=== PATIENT | female | born 1960 | race Caucasian/White ===

== ENCOUNTER 2016-11-27 09:03 | Inpatient (IN) | payer BC ==
[2016-11-27] MEDS ORDERED: Ondansetron INJ* 2 MG/ML VIAL IV ONE (09:57)
[2016-11-27] MEDS ORDERED: Ketorolac INJ* 30 MG/ML 1 ML VIAL IV ONE (09:57)
[2016-11-27] MEDS ORDERED: Morphine INJ* 4 MG/ML 1 ML CARPUJECT IV ONE ×2 (09:57→15:38)
[2016-11-27 10:11] LABS: Hematocrit 46 % (35-47); Hemoglobin 15.3 g/dl (12.0-16.0); Mean Corpuscular HGB Conc 33 g/dl (31-36); Mean Corpuscular Hemoglobin 30 pg (27-31); Mean Corpuscular Volume 90 fL (80-97); Mean Platelet Volume 11 um3 (7.4-10.4); Red Blood Count 5.16 10^6/ul (4.0-5.4); Red Cell Distribution Width 14 % (10.5-15); White Blood Count 15.2 10^3/ul (3.5-10.8)
[2016-11-27 10:14] LABS: Urine Bilirubin Negative (Negative); Urine Glucose Negative (Negative); Urine Nitrite Negative (Negative)
[2016-11-27] MEDS: NS 0.9% 1000 ML* 2,000 ML IV ONE ×3 (10:14→15:47)
[2016-11-27 10:26] LABS: Albumin 3.9 g/dL (3.2-5.2); BUN/Creatinine Ratio 14.1 (8-20); C Reactive Protein 84.89 mg/L (< 5.00); Calcium 9.3 mg/dL (8.6-10.3); EGFR Non-African American 69.2 (>60); Globulin 3.3 g/dL (2-4); Potassium 3.6 mmol/L (3.5-5.0); Total Bilirubin 0.6 mg/dL (0.2-1.0); Total Protein 7.2 g/dL (6.4-8.9)
[2016-11-27 10:28] LABS: Troponin I 0.01 ng/mL (<0.04)
--- NOTE | 2016-11-27 10:44 | RAD ---
CLINICAL HISTORY: Right flank pain COMPARISON: October 25, 2013 TECHNIQUE: Multiple contiguous axial CT scans were obtained of the abdomen and pelvis, without intravenous contrast enhancement. Coronal and sagittal multiplanar reformations are submitted for review. Oral contrast was not administered. FINDINGS: This The study is limited by the lack of intravenous contrast. This limits evaluation of the solid organs and vasculature. LUNG BASES: The lung bases are clear. LIVER: There is a Mary's lobe of the liver. BILE DUCTS: There is no intrahepatic or extrahepatic biliary dilatation. GALLBLADDER: The gallbladder is not clearly visualized. PANCREAS: The patient appears to be status post partial pancreatectomy. SPLEEN: The spleen is not identified. There is a small amount of residual splenic tissue in the left upper quadrant, stable UPPER GI TRACT: Evaluation of the gastrointestinal tract is limited by incomplete gastric distention. The upper GI tract is unremarkable. SMALL BOWEL AND MESENTERY: The small bowel is normal in contour, course, and caliber. There is no obstruction or dilatation. COLON: The colon is normal in contour, course, caliber. There is no pericolonic inflammatory change. There is a tubular, vermiform, hollow viscus that is blind ending, and originates from the cecum, consistent with a normal appendix. There is no periappendiceal inflammatory change. This is best seen on images 105 through 111 ADRENALS: There is stable right adrenal nodule KIDNEYS: The kidneys are normal in shape, size, contour, and axis. There is no hydronephrosis or nephrolithiasis. BLADDER: The bladder is smooth in contour. PELVIC ORGANS: The pelvic organs are not visualized. AORTA: There is calcific atherosclerotic disease of the abdominal aorta and its branches, without aneurysmal dilatation IVC: Unremarkable LYMPH NODES: There is no lymphadenopathy by size criteria. ABDOMINAL WALL: There is no evidence for abdominal wall hernia. BONES AND SOFT TISSUES: Unremarkable OTHER: None IMPRESSION: 1. STATUS POST PARTIAL PANCREECTOMY AND SPLENECTOMY. 2. NO HYDRONEPHROSIS OR NEPHROLITHIASIS. 3. STABLE RIGHT ADRENAL NODULE
[2016-11-27] MEDS ORDERED: Albuterol/Ipratropium NEB.SOL* Albuterol 2.5 MG/Ipratropium 0.5 MG 3 ML INH ONE (15:55)
[2016-11-27] MEDS ORDERED: methylPREDNISolone 125 MG* 2 ML VIAL IV ONE (15:55)
--- NOTE | 2016-11-27 17:05 | RAD ---
Indication: Right lower quadrant pain. COMPARISON: Correlation is made with a prior CT of the abdomen and pelvis from November 27, 2016. TECHNIQUE: Multiple real-time transvaginal images of the pelvis were obtained. FINDINGS: The patient is status post hysterectomy. The right ovary measured 2.5 x 1.6 x 1.7 cm. The left ovary measured 2.3 x 1.1 x 1.4 cm. There is vascular flow within both ovaries. There are small bilateral subcentimeter follicular cysts present. No free intraperitoneal fluid is seen. IMPRESSION: STATUS POST HYSTERECTOMY, OTHERWISE UNREMARKABLE STUDY.
[2016-11-27] MEDS ORDERED: Iohexol 350* (CONTRAST) 500 ML MDV IV ONE (17:27)
--- NOTE | 2016-11-27 18:48 | RAD ---
INDICATION: Hypoxia, right flank and right lower quadrant pain. COMPARISON: Comparison is made with prior CTs of the abdomen and pelvis from October 25, 2013 and November 27, 2016. TECHNIQUE: A CT angiogram of the chest and a CT of the abdomen and pelvis was performed with intravenous contrast following intravenous injection of 81 ml of Omnipaque 350 nonionic contrast. Contiguous axial sections were obtained from the lung apices through the symphysis pubis. Images were reconstructed in the coronal and sagittal planes. FINDINGS: CT ANGIOGRAM OF THE CHEST: There is relatively homogeneous opacification of the pulmonary arteries. No intraluminal filling defect or pulmonary embolism is seen. The heart is within normal limits in size. No pericardial effusion is present. The thoracic aorta is normal in caliber and demonstrates homogeneous contrast opacification without evidence for dissection. There are multiple enlarged mediastinal lymph nodes present in the precarinal subcarinal and aorticopulmonary window regions measuring up to 2.0 cm in transverse dimension in the subcarinal region. There are also enlarged bilateral hilar lymph nodes measuring up to 1.7 cm in size. There are patchy infiltrates present in both upper lobes suspicious for pneumonia. In addition there are few scattered small bilateral pulmonary nodules. The largest nodule is located in the right upper lobe and measures 0.6 cm in size. There is also a small infiltrate in the right lower lobe suggestive of atelectasis. No pleural effusion is seen. CT OF THE ABDOMEN AND PELVIS: The liver is mildly enlarged and unchanged from prior studies. There is mild intra and extra hepatic ductal distention. The common bile duct measures up to 0.9 cm in diameter and appears similar to the prior study from study from 2012. The patient is status post cholecystectomy and resection of the pancreatic body and tail. There is fullness in the pancreatic head which is also unchanged from the prior exam. The patient is also status post splenectomy. There is a splenule present in the left upper quadrant which is unchanged. There is a 2.1 x 1.1 cm nodule within the right adrenal gland which is unchanged. The left adrenal gland appears to be within normal limits. No hydronephrosis is seen. There is a 2 cm cyst present in the midportion of the left kidney. The abdominal aorta is normal in caliber. There is moderate calcific plaque present. No significant enlarged retroperitoneal or mesenteric lymph nodes are seen. The stomach is mildly distended with contrast. The small bowel and colon appear nondistended. The appendix is not visualized. No inflammatory changes are seen in the right lower quadrant. There is no evidence for diverticulitis or colitis. There is mild thickening of the wall of the esophagus. The patient is status post hysterectomy. No free intraperitoneal air or fluid is seen. No significant focal osseous abnormality is seen. IMPRESSION: 1. NO EVIDENCE FOR PULMONARY EMBOLISM. 2. PATCHY BILATERAL UPPER LOBE INFILTRATES SUSPICIOUS FOR PNEUMONIA. 3. SMALL BILATERAL PULMONARY NODULES DIFFERENTIAL DIAGNOSIS WOULD INCLUDE METASTATIC DISEASE, INFLAMMATORY OR INFECTIOUS NODULES OR GRANULOMATOUS DISEASE. 4. ENLARGED MEDIASTINAL OR HILAR LYMPH NODES CONSIDER A NEOPLASTIC PROCESS WELL SARCOIDOSIS. 5. STABLE RIGHT ADRENAL NODULE. 6. STATUS POST PARTIAL PANCREATECTOMY AND SPLENECTOMY. 7. MILD INTRA AND EXTRAHEPATIC DUCTAL DISTENTION, UNCHANGED SIGNIFICANTLY. 8. MILD THICKENING OF THE WALL OF THE ESOPHAGUS LIKELY INFLAMMATORY ALTHOUGH NONSPECIFIC CONSIDER ENDOSCOPY.
[2016-11-27] MEDS ORDERED: Levofloxacin 750 MG IVPREMIX(* 750 MG/150 ML BAG IVPB ONE (19:24)
[2016-11-27] MEDS ORDERED: Acetaminophen TAB* 325 MG PO PRN (20:19)
[2016-11-27] MEDS ORDERED: cefTRIAXone(*) 1 GM in NS 0.9% 50 ML* 50 ML IVPB ONE (20:27)
[2016-11-27] MEDS ORDERED: Albuterol/Ipratropium NEB.SOL* Albuterol 2.5 MG/Ipratropium 0.5 MG 3 ML INH PRN (20:27)
[2016-11-27] MEDS ORDERED: Morphine INJ* 2 MG/ML 1 ML CARPUJECT IV PRN (20:27)
[2016-11-27] MEDS ORDERED: Albuterol HFA INHALER* 8 gm MDI INH PRN (20:30)
[2016-11-27] MEDS: Heparin VIAL(*) 5000 UNITS/ML VIAL (FIVE THOUSAND) SUBCUT SCH (22:49)
[2016-11-27] MEDS: Azithromycin IV(*) 500 MG in NS 0.9% 250 ML* 250 ML IVPB SCH (22:51)
[2016-11-27] MEDS: Mometasone/Formoter 100/5 MDI INH SCH (22:59)
[2016-11-28] MEDS: methylPREDNISolone SOD 40 MG* 1 ML VIAL IV SCH ×3 (00:38→17:27)
[2016-11-28] MEDS: Benzonatate CAP* 100 MG PO PRN ×2 (02:51→10:37)
[2016-11-28] MEDS: Heparin VIAL(*) 5000 UNITS/ML VIAL (FIVE THOUSAND) SUBCUT SCH ×3 (05:40→21:47)
[2016-11-28] MEDS: Mometasone/Formoter 100/5 MDI INH SCH ×2 (07:37→23:26)
[2016-11-28] MEDS: Tiotropium CAP.INH* CAP.INH/18 MCG (USE ORDER SET !) INH SCH (07:38)
--- NOTE | 2016-11-28 08:37 | HP ---
HISTORY AND PHYSICAL: DATE OF ADMISSION: 11/27/16 PRIMARY CARE PHYSICIAN: Dr. Stevenson Carmichael. CHIEF COMPLAINT: Shortness of breath. HISTORY OF PRESENT ILLNESS: The patient is a 56-year-old woman who was initially diagnosed with bronchitis after going to [facility] the other day and placed on Augmentin and an inhaler. She said, however, later that evening she started developing pain in her back. It was on the right side and radiated to the front. She thought she had a stone, so she came to the ER. She received morphine which helped the pain. She denied any blood in her urine. With shortness of breath, she also experienced chest tightness and a cough that was productive of yellow phlegm. She had fevers and chills. She does not know if there was any increased wheezing. In the ED, the patient was evaluated and thought to have a likely pneumonia. PAST MEDICAL HISTORY: Significant for pancreatic cancer diagnosed in 2004, COPD , hypertension. PAST SURGICAL HISTORY: Significant for partial pancreatotomy for cancer, splenectomy, cholecystectomy, hysterectomy. MEDICATIONS: Her current medications at home are: 1. Spiriva one inhalation daily. 2. Lisinopril 20 mg daily. 3. Hydrochlorothiazide 12.5 mg daily. 4. Advair Diskus 150 one puff twice daily. 5. Amlodipine one capsule daily. 6. Albuterol inhaler one to two puffs every 4 hours as needed. ALLERGIES: She has an allergy/adverse reaction to BUPROPION and OXYCODONE. FAMILY HISTORY: Father had non-insulin dependent diabetes and heart problems. Mother had osteoarthritis. Brother had thyroid problems. SOCIAL HISTORY: She has a [id number] history of smoking, quit for 10 days but is smoking again. Occasional alcohol and recreational drug use. She works for the [employer]. Her is her healthcare proxy. REVIEW OF SYSTEMS: A 14-point review of systems was completed with the patient. All pertinent positives and negatives are in the history of present illness; otherwise is negative. PHYSICAL EXAMINATION GENERAL: Pleasant woman, lying in bed, in no acute distress. VITAL SIGNS: Temperature 97.7 degrees, heart rate 91 beats per minute, respiratory rate 20 breaths per minute, pulse ox 92%, blood pressure 151/80. HEENT: Normocephalic, atraumatic. Pupils are equal, round, and reactive to light. Moist mucous membranes. NECK: Supple. No JVD, bruits, palpable thyroid, or lymphadenopathy. CHEST: Clear to auscultation and percussion bilaterally. CARDIOVASCULAR: S1, S2 appreciated. Regular rate and rhythm. No murmurs, gallops, or rubs. ABDOMEN: Positive bowel sounds in all 4 quadrants. Soft, nontender, nondistended. No hepatosplenomegaly. EXTREMITIES: No cyanosis, clubbing, or edema. +2 peripheral pulses bilaterally. NEUROLOGIC: Alert and oriented x3. Moves all extremities. SKIN: No distinct rashes or abnormalities. DIAGNOSTIC STUDIES/LAB DATA: White count 15.2, hemoglobin 15.3, hematocrit 46 , platelets 248. Sodium 134, potassium 3.6, chloride 102, CO2 27, BUN 12, creatinine 0.85, glucose 121. Urinalysis unremarkable. EKG showed normal sinus rhythm, 89 beats per minute, normal axis, no acute ST-T wave changes. Abdominal/pelvic CT shows status post partial pancreatectomy and splenectomy. No hydronephrosis or nephrolithiasis, status post stable right adrenal nodule. Transvaginal ultrasound shows status post hysterectomy, otherwise unremarkable study. CTA of the chest, abdomen and pelvis shows no evidence of pulmonary embolism. Patchy bilateral upper lobe infiltrates pneumonia and small bilateral pulmonary nodule. Differential diagnosis would include metastatic disease, inflammatory infectious nodules with granulomatous disease. Large B-cell hilar lymph nodes neoplastic process as well as sarcoidosis. Stable right adrenal nodule. Status post partial pancreatectomy, splenectomy, mild intrahepatic ductal distention, unchanged significantly. Mild thickening of the wall of the esophagus, likely inflammatory, although nonspecific, consider endoscopy. ASSESSMENT AND PLAN: 1. Bilateral pneumonia. Placed the patient on Rocephin and Zithromax. Check sputum for C and S, urine for Legionella pneumococcal antigen. Tessalon Perles for cough. 2. Chronic obstructive pulmonary disease exacerbation. Solu-Medrol 40 IV q. 8. DuoNeb nebulizers. 3. Hypertension. BP is somewhat high. Continue current regimen and adjust medications accordingly. 4. Fluids, electrolytes, nutrition. Regular diet. 5. Deep venous thrombosis prophylaxis. Heparin subcu. 6. The patient is a full code. TIME SPENT: Over 75 minutes were spent on this H and P, more than 40 minutes of which were spent in direct [id number] contact with the patient in evaluation, physical exam, counseling, and coordination of care. CC: Dr. Stevenson Carmichael* [id number]/[facility] #: [id number] [facility] HOSPITALSissy
[2016-11-28] MEDS ORDERED: Nicotine GUM* 2 MG PO PRN (08:53)
[2016-11-28] MEDS ORDERED: Nicotine Inhaler* 10 MG AMP INH PRN (08:53)
[2016-11-28] MEDS ORDERED: Pneumococcal *Vac Polyvalent 0.5 ML VIAL IM ONE (09:00)
[2016-11-28] MEDS ORDERED: AMLODIPINE BESYLATE BENAZEPRIL PO SCH (09:00)
[2016-11-28] MEDS ORDERED: Spiriva Inhaler DEVICE* 1 EACH DEVICE INH ONE (09:00)
[2016-11-28] MEDS ORDERED: Influenza VAC *QUAD* 2016-17* 0.5 ML SYRINGE IM ONE (09:00)
[2016-11-28] MEDS ORDERED: NICOTINE 21 MG/24 HR TRANSDERM SCH (09:00)
[2016-11-28] MEDS: Hydrochlorothiazide TAB* 25 MG PO SCH (09:09)
[2016-11-28] MEDS: Lisinopril TAB* 10 MG PO SCH (09:09)
[2016-11-28] MEDS: Nicotine PATCH 21 MG/24 HR* PATCH TRANSDERM SCH (09:12)
--- NOTE | 2016-11-28 09:42 | ED ---
Lexx Guadarrama Anna, scribed for Luis Scruggs MD on 11/27/16 at 0951 . Back Pain - HPI Summary HPI Summary: Patient is a 56 y/o female coming to [facility] presenting with gradual onset of right-sided flank pain that began last night. The pain waxes and wanes, peaking at a severity of 9/10. The pain radiates to the front RLQ. She was seen at [facility] yesterday and prescribed Abx for her bronchitis. Hx significant for cholecystectomy. - History of Current Complaint Chief Complaint: EDFlankPain Stated Complaint: RIGHT SIDE FLANK PAIN Time Seen by Provider: 11/27/16 09:39 Hx Obtained From: Patient Pain Intensity: 9 - Allergies/Home Medications Allergies/Adverse Reactions: Allergies Allergy/AdvReac Type Severity Reaction Status Date / Time Bupropion [From Wellbutrin] Allergy Intermediate Hives Verified 11/27/16 09:20 Oxycodone [From Percocet] Allergy Intermediate Swelling Verified 11/27/16 09:20 Of Face,Lips,& Throat Home Medications: Home Medications Albuterol HFA INHALER* [Ventolin HFA Inhaler*] 1 - 2 puff INH Q4H PRN 11/27/16 [ History Confirmed 11/27/16] Fluticasone-Salmeterol 100-50* [Advair Diskus 100-50*] 1 puff INH BID 11/27/16 [ History Confirmed 11/27/16] Hydrochlorothiazide [Microzide-] 12.5 mg PO DAILY 11/27/16 [History Confirmed ] Lisinopril [Prinivil TAB 20 mg] 20 mg PO DAILY 11/27/16 [History Confirmed 11/27] Tiotropium CAP.INH* [Spiriva CAP.INH*] 1 cap.inh INH DAILY 11/27/16 [History Confirmed 11/27/16] PMH/Surg Hx/FS Hx/Imm Hx Previously Healthy: Yes Cardiovascular History: Reports: Hx Hypertension Respiratory History: Reports: Hx Chronic Obstructive Pulmonary Disease (COPD) GI History: Reports: Other GI Disorders - pancreatic ca Psychiatric History: Reports: Hx Anxiety, Hx Depression - Cancer History Cancer Type, Location and Year: pancreatic ca 2005 - Surgical History Surgery Procedure, Year, and Place: partial pancreatectomy; partial hysterectomy ; spleenectomy; cholecystectomy Infectious Disease History: No Infectious Disease History: Denies: Hx Clostridium Difficile, Hx Hepatitis, Hx Human Immunodeficiency Virus (HIV), Traveled Outside the [place] in Last 30 Days - Family History Known Family History: Positive: Hypertension - Social History Alcohol Use: Rare Substance Use Type: Reports: None Smoking Status (MU): Former Smoker Review of Systems Negative: Fever Positive: Abdominal Pain - Right flank, radiating to RLQ All Other Systems Reviewed And Are Negative: Yes Physical Exam Triage Information Reviewed: Yes Vital Signs On Initial Exam: Initial Vitals Temp Pulse Resp BP Pulse Ox 98.6 F 107 18 133/79 89 11/27/16 09:13 11/27/16 09:13 11/27/16 09:13 11/27/16 09:13 11/27/16 09:13 Vital Signs Reviewed: Yes Appearance: Positive: Well-Appearing, No Pain Distress Skin: Positive: Warm, Skin Color Reflects Adequate Perfusion, Dry Head/Face: Positive: Normal Head/Face Inspection Eyes: Positive: EOMI, SHAYNE ENT: Positive: Normal ENT inspection Neck: Positive: Supple, Nontender Respiratory/Lung Sounds: Positive: Clear to Auscultation, Breath Sounds Present Cardiovascular: Positive: RRR Abdomen Description: Positive: Soft, CVA Tenderness (R) Bowel Sounds: Positive: Present Musculoskeletal: Positive: Normal, Strength/ROM Intact Neurological: Positive: Normal, Sensory/Motor Intact, Alert, Oriented to Person Place, Time Psychiatric: Positive: Affect/Mood Appropriate Diagnostics - Vital Signs Vital Signs Temp Pulse Resp BP Pulse Ox 11/27/16 09:36 95 11/27/16 09:34 111 88 11/27/16 09:13 98.6 F 107 18 133/79 89 - Laboratory Lab Results: Lab Results 11/27/16 11/27/16 11/27/16 Range/Units 09:30 10:00 10:00 WBC 15.2 H (3.5-10.8) 10^3/ul RBC 5.16 (4.0-5.4) 10^6/ul Hgb 15.3 (12.0-16.0) g/dl Hct 46 (35-47) % MCV 90 (80-97) fL MCH 30 (27-31) pg MCHC 33 (31-36) g/dl RDW 14 (10.5-15) % Plt Count 248 (150-450) 10^3/ul MPV 11 H (7.4-10.4) um3 Neut % (Auto) 74.5 (38-83) % Lymph % (Auto) 14.6 L (25-47) % [place] % (Auto) 9.0 (1-9) % Eos % (Auto) 1.4 (0-6) % Baso % (Auto) 0.5 (0-2) % Absolute Neuts (auto) 11.3 H (1.5-7.7) 10^3/ul Absolute Lymphs (auto) 2.2 (1.0-4.8) 10^3/ul Absolute Monos (auto) 1.4 H (0-0.8) 10^3/ul Absolute Eos (auto) 0.2 (0-0.6) 10^3/ul Absolute Basos (auto) 0.1 (0-0.2) 10^3/ul Absolute Nucleated RBC 0.01 10^3/ul Nucleated RBC % 0 INR (Anticoag Therapy) 0.94 (0.89-1.11) APTT 30.1 (26.0-36.3) seconds Sodium (133-145) mmol/L Potassium (3.5-5.0) mmol/L Chloride (101-111) mmol/L Carbon Dioxide (22-32) mmol/L Anion Gap (2-11) mmol/L BUN (6-24) mg/dL Creatinine (0.51-0.95) mg/dL Est GFR ( Amer) (>60) Est GFR (Non-Af Amer) (>60) BUN/Creatinine Ratio (8-20) Glucose (70-100) mg/dL Lactic Acid (0.5-2.0) mmol/L Calcium (8.6-10.3) mg/dL Total Bilirubin (0.2-1.0) mg/dL AST (13-39) U/L ALT (7-52) U/L Alkaline Phosphatase (34-104) U/L Troponin I (<0.04) ng/mL C-Reactive Protein (< 5.00) mg/L Total Protein (6.4-8.9) g/dL Albumin (3.2-5.2) g/dL Globulin (2-4) g/dL Albumin/Globulin Ratio (1-3) Lipase (11.0-82.0) U/L Urine Color Straw Urine Appearance Clear Urine pH 6.0 (5-9) Ur Specific Merlin 1.004 L (1.010-1.030) Urine Protein Negative (Negative) Urine Ketones Negative (Negative) Urine Blood Negative (Negative) Urine Nitrate Negative (Negative) Urine Bilirubin Negative (Negative) Urine Urobilinogen Negative (Negative) Ur Leukocyte Esterase Negative (Negative) Urine Glucose Negative (Negative) 11/27/16 11/27/16 Range/Units 10:00 10:00 WBC (3.5-10.8) 10^3/ul RBC (4.0-5.4) 10^6/ul Hgb (12.0-16.0) g/dl Hct (35-47) % MCV (80-97) fL MCH (27-31) pg MCHC (31-36) g/dl RDW (10.5-15) % Plt Count (150-450) 10^3/ul MPV (7.4-10.4) um3 Neut % (Auto) (38-83) % Lymph % (Auto) (25-47) % [place] % (Auto) (1-9) % Eos % (Auto) (0-6) % Baso % (Auto) (0-2) % Absolute Neuts (auto) (1.5-7.7) 10^3/ul Absolute Lymphs (auto) (1.0-4.8) 10^3/ul Absolute Monos (auto) (0-0.8) 10^3/ul Absolute Eos (auto) (0-0.6) 10^3/ul Absolute Basos (auto) (0-0.2) 10^3/ul Absolute Nucleated RBC 10^3/ul Nucleated RBC % INR (Anticoag Therapy) (0.89-1.11) APTT (26.0-36.3) seconds Sodium 134 (133-145) mmol/L Potassium 3.6 (3.5-5.0) mmol/L Chloride 100 L (101-111) mmol/L Carbon Dioxide 27 (22-32) mmol/L Anion Gap 7 (2-11) mmol/L BUN 12 (6-24) mg/dL Creatinine 0.85 (0.51-0.95) mg/dL Est GFR ( Amer) 89.0 (>60) Est GFR (Non-Af Amer) 69.2 (>60) BUN/Creatinine Ratio 14.1 (8-20) Glucose 121 H (70-100) mg/dL Lactic Acid 0.7 (0.5-2.0) mmol/L Calcium 9.3 (8.6-10.3) mg/dL Total Bilirubin 0.60 (0.2-1.0) mg/dL AST 16 (13-39) U/L ALT 13 (7-52) U/L Alkaline Phosphatase 64 (34-104) U/L Troponin I 0.01 (<0.04) ng/mL C-Reactive Protein 84.89 H (< 5.00) mg/L Total Protein 7.2 (6.4-8.9) g/dL Albumin 3.9 (3.2-5.2) g/dL Globulin 3.3 (2-4) g/dL Albumin/Globulin Ratio 1.2 (1-3) Lipase 34 (11.0-82.0) U/L Urine Color Urine Appearance Urine pH (5-9) Ur Specific Merlin (1.010-1.030) Urine Protein (Negative) Urine Ketones (Negative) Urine Blood (Negative) Urine Nitrate (Negative) Urine Bilirubin (Negative) Urine Urobilinogen (Negative) Ur Leukocyte Esterase (Negative) Urine Glucose (Negative) Result Diagrams: 11/27/16 10:00 11/27/16 10:00 Lab Statement: Any lab studies that have been ordered have been reviewed, and results considered in the medical decision making process. - CT CT Abd/pel CT Interpretation: Positive (See Comments) CT Interpretation Completed By: Radiologist - IMPRESSION: 1. STATUS POST PARTIAL PANCREECTOMY AND SPLENECTOMY. 2. NO HYDRONEPHROSIS OR NEPHROLITHIASIS. 3. STABLE RIGHT ADRENAL NODULE - EKG 0938 Cardiac Rate: NL - 89 bpm EKG Rhythm: Sinus Rhythm ST Segment: Normal Ectopy: None Back Pain Course/Dx - Course Assessment/Plan: admit hospitalist stable - Diagnoses Provider Diagnoses: Abdominal pain, Hypoxia Discharge - Discharge Plan Condition: Stable Disposition: ADMITTED TO [facility] documentation as recorded by the Lexx cabrera Anna accurately reflects the service I personally performed and the decisions made by , Luis Scruggs MD.
--- NOTE | 2016-11-28 15:14 | PN ---
Subjective Date of Service: 11/28/16 Interval History: HOSPITALIST PROGRESS NOTE Patient seen and examined at bedside. She feels better this AM. States her cough is now productive with yellow sputum and dyspnea is less intense. Right flank pain is resolved. Family History: Unchanged from Admission Social History: Unchanged from Admission Past Medical History: Unchanged from Admission Objective Active Medications: Acetaminophen (Tylenol Tab*) 650 mg PO Q4H PRN PRN Reason: FEVER/PAIN Acetaminophen/Hydrocodone Bitart ([place] 5-325 Tab*) 1 tab PO Q4H PRN PRN Reason: PAIN Albuterol (Ventolin Hfa Inhaler*) 2 puff INH Q4H PRN PRN Reason: SHORTNESS OF BREATH Last Admin: 11/28/16 02:49 Dose: 2 puff Albuterol/Ipratropium (Duoneb Neb.Merari*) 1 neb INH Q2H PRN PRN Reason: SOB/WHEEZING Benzonatate (Tessalon Cap*) 200 mg PO TID PRN PRN Reason: COUGH Last Admin: 11/28/16 10:37 Dose: 200 mg Heparin Sodium (Porcine) (Heparin Vial(*)) 5,000 units SUBCUT Q8HR [facility] Last Admin: 11/28/16 14:59 Dose: 5,000 units Hydrochlorothiazide (Hydrodiuril Tab*) 12.5 mg PO DAILY [facility] Last Admin: 11/28/16 09:09 Dose: 12.5 mg Azithromycin 500 mg/ Sodium (Chloride) 250 mls @ 250 mls/hr IVPB Q24H [facility] Last Admin: 11/27/16 22:51 Dose: 250 mls/hr Lisinopril (Prinivil Tab*) 20 mg PO DAILY [facility] Last Admin: 11/28/16 09:09 Dose: 20 mg Methylprednisolone Sodium Succinate (Solu-Medrol*) 40 mg IV Q8H [facility] Last Admin: 11/28/16 09:09 Dose: 40 mg Mometasone Furoate/Formoterol Fumar (Dulera 100/5 Mdi*) 2 puff INH BID [facility] Last Admin: 11/28/16 07:37 Dose: 2 puff Morphine Sulfate (Morphine Inj (Syringe)*) 2 mg IV Q2H PRN PRN Reason: PAIN Last Admin: 11/28/16 05:40 Dose: 2 mg Nicotine (Nicotine Inhaler*) 10 mg INH Q2H PRN PRN Reason: CRAVING Nicotine (Nicotine Patch 21 Mg/24 Hr*) 1 patch TRANSDERM DAILY@0800 [facility] Last Admin: 11/28/16 09:12 Dose: 1 patch Nicotine Polacrilex (Nicotine Gum*) 2 mg PO Q2H PRN PRN Reason: CRAVING Pharmacy Profile Note (Nicotine Patch Removal Note*) 1 note PATCH OFF 2100 [facility] Tiotropium [place] (Spiriva Cap.Inh*) 1 cap INH DAILY [facility] Last Admin: 11/28/16 07:38 Dose: 1 cap Vital Signs 11/28/16 11:08 Temperature 97.3 F Pulse Rate 79 Respiratory 17 Rate Blood Pressure 144/87 (mmHg) O2 Sat by Pulse 94 Oximetry Oxygen Devices in Use Now: Nasal Cannula Appearance: Pleasant lady sitting up in bed in NAD, very animated. Eyes: No Scleral Icterus Ears/Nose/Mouth/Throat: Mucous Membranes Moist Neck: Trachea Midline Respiratory: Symmetrical Chest Expansion and Respiratory Effort, - - BS+ bilaterally with bilateral rhochi and wheeze Cardiovascular: NL Sounds; No Murmurs; No JVD, RRR Extremities: No Edema, - - Digital clubbing, no cyanosis Neurological: Alert and Oriented x 3, NL Muscle Strength and Tone Lines/Tubes/Other Access: Clean, Dry and Intact Peripheral IV Nutrition: Taking PO's Result Diagrams: 11/27/16 10:00 11/27/16 10:00 Assess/Plan/Problems-Billing Assessment: Mrs. Carpenter is a 56yo F with PMH of COPD, tobacco abuse, BRITNEY on CPAP, pancreatic CA s/p resection 2004, s/p splenectomy, who presented to ED with c/o right flank pain, but was found to be dyspneic and hypoxemic. - Patient Problems (1) Right flank pain Comment: - Etiology unclear. - Her description of right back pain, radiating to right flank and RLQ is suggestive of renal colic, but is now resolved and w/u was negative. - CT without contrast showed no nephrolithiasis or hydronephrosis, CT with contrast showed mild esophageal thickening suggestive of inflammation, TV US showed no acute findings. - Will continue to monitor. (2) Acute and chronic respiratory failure Comment: - Suspect she has chronic respiratory failure as her SO2 dropped to the 60s yesterday and as per patient "it bothered the nurse more than bothered me". She also has clubbing. - Continue supplemental O2. (3) COPD exacerbation Comment: - Secondary to pneumonia. - Legionella and pneumococcal Ag are negative. - Continue Ceftriaxone, Zithromax, steroids and bronchodilators. - Flutter valve. (4) Mediastinal adenopathy Comment: - CTA chest showed patchy bilateral upper lobe infiltrates suggestive of pneumonia, but also shows small bilateral pulmonary nodules and enlarged mediastinal or hilar lymphnodes. - Differential includes malignancy (patient is a smoker, has h/o pancreatic CA, mild esophageal thickening on CT), sarcoidosis. - Will request Pulm consultation. (5) Esophageal thickening Comment: - CT chest shows mild thickening of the esophageal wall. This likely represents esophagitis. Patient has no chest pain or dysphagia. - Pulm consult for mediastinal adenopathy, but may need GI eval for EGD. - Start PPI. (6) HTN (hypertension) Comment: - Continue Lisinopril and HCTZ. (7) DVT prophylaxis Comment: - SQ heparin. (8) Full code status Status and Disposition: Inpatient.
[2016-11-28] MEDS: HYDROcodone/ACETAMIN 5-325 MG* 1 TAB PO PRN (18:00)
--- NOTE | 2016-11-28 19:11 | CONS ---
PULMONARY CONSULTATION REPORT: DATE OF CONSULT: 11/28/16 REASON FOR CONSULT: Evaluation of abnormality noted on recent CT chest, hypoxemia. HISTORY OF PRESENT ILLNESS: The patient is a 56-year-old female, current smoker with significant smoking history; history of pancreatic cancer, status post surgical resection including partial splenectomy. The patient presented to the emergency room for evaluation of back pain and abdominal pain. The patient had URI symptoms recently. Symptoms have not been improving with outpatient therapy. She has been following up with her primary care physician. The patient started having worsening back pain and abdominal pain radiating to her front. The patient attributed the pain to kidney stones and presented to the ED for further evaluation. The patient was noted to be hypoxemic in the ED. The patient had CT scan of the chest, abdomen, and pelvis while in the ED. No evidence of pulmonary embolism was noted. I personally reviewed the CT scan of the chest. The patient also noted to have patchy bilateral upper lobe infiltrates. The patient also noted to have subcentimeter pulmonary nodule with largest measuring in the right upper lobe about 0.6 cm and evidence of mediastinal and hilar adenopathy. The patient also noted to have right adrenal nodule which has not been with any significant change compared to before. The patient also noted to have mild thickening of the wall of esophagus. The patient is currently on O2 supplementation. The patient reports improvement in cough and shortness of breath currently. The patient was evaluated by Pulmonology in [place], [place], in the past. The patient reports known history of pulmonary nodule. The patient continues to smoke, had unsuccessful quit attempt. The patient was able to quit smoking with the help of Chantix; however, was not able to receive the medication through her insurance. The patient reports low-grade fevers and chills. The patient denies hemoptysis. The patient reports some chest tightness and yellow phlegm. Abdominal pain and back pain are improved with morphine currently. PAST MEDICAL HISTORY: 1. Pancreatic cancer diagnosed in 2004. 2. COPD. 3. Hypertension. PAST SURGICAL HISTORY: 1. Partial for cancer. 2. Splenectomy. 3. Cholecystectomy. 4. Hysterectomy. MEDICATIONS: 1. Spiriva. 2. Lisinopril. 3. Hydrochlorothiazide. 4. Advair. 5. Amlodipine. 6. Albuterol. ALLERGIES: BUPROPION, OXYCODONE. FAMILY HISTORY: [id number] diabetes, heart problems in father. Osteoarthritis in mother. SOCIAL HISTORY: A [id number] smoking, quit 10 days ago, on BUPROPION. The patient started smoking again as she was not able to fill her medication. Denies alcohol or drug abuse. Works in [employer], denies any occupational exposure. REVIEW OF SYSTEMS: A 14-system review of systems was completed and as per HPI. PHYSICAL EXAM: The patient in bed, in no apparent distress. Vital Signs: Temperature 97.3, heart rate 79 beats per minute, respiratory rate 17 per minute , O2 sat 94% on 2 L O2 supplementation, blood pressure 144/87. HEENT: Pupils equal, reactive to light. Mucous membranes moist. No JVD. Neck: Supple. No palpable supraclavicular adenopathy. Chest: Clear to auscultation predominantly. Scattered wheeze present. Cardiovascular: S1, S2 present, regular. Abdomen: Soft. Bowel sounds present. Extremities: Normal range of motion. Neurologic: Alert, awake, and oriented x3. No focal deficits. Skin: No rashes or bruises. DIAGNOSTIC STUDIES/LAB DATA: WBC count 15.2, hemoglobin 15.3, hematocrit 46, platelet count 248. INR 0.94. Sodium 134, potassium 3.6, chloride 100, bicarb 27, BUN 12, creatinine 0.85, glucose 121, lactic acid 0.7, CRP 84.89. UA negative. CT of the chest as described above in HPI. IMPRESSION AND RECOMMENDATIONS: 56-year-old female with a history of pancreatic cancer, significant smoking history with subcentimeter pulmonary nodules and mediastinal and hilar adenopathy. Lymphadenopathy could be secondary to underlying pneumonia; however, given significant smoking history and history of pancreatic cancer, need to rule out malignancy. Continue with antibiotics for community-acquired pneumonia. Agree with current management for chronic obstructive pulmonary disease exacerbation. The patient with significant emphysema on CT chest, likely hypoxemia, is related to underlying chronic obstructive pulmonary disease. I have discussed in great length regarding CT chest findings, I am concerned with malignancy/metastatic disease process. The patient reports that she had seen a transport rn in the past in [place], [place], and would like to follow up with transport rn. The patient understands consequences of not having this addressed soon. Thank you for allowing me to participate in the care of your patient. [id number]/[facility] #: [id number] KENISHA
[2016-11-28] MEDS: Azithromycin IV(*) 500 MG in NS 0.9% 250 ML* 250 ML IVPB SCH (21:47)
[2016-11-28] MEDS: Nicotine Patch Removal NOTE PATCH OFF SCH (22:59)
[2016-11-29] MEDS: methylPREDNISolone SOD 40 MG* 1 ML VIAL IV SCH ×4 (00:26→23:58)
--- NOTE | 2016-11-29 01:10 | UC ---
Chiara, Alvino Stanford, scribed for Francisco Pinto MD on 11/27/16 at 1932 . Progress - Progress Note Progress Note: The patient is a sign out from Dr. Sanders. After her treatment here in the Ed, I evaluated her and she was clearly SOB. She is unsafe to go home at this point. Dr. Boswell was consulted to evaluate the patient. She is in stable condition and will be admit to [facility] with a diagnosis of respiratory insufficiency. The documentation as recorded by the scribeHien Matthew accurately reflects the service I personally performed and the decisions made by me, Francisco Pinto MD.
[2016-11-29] MEDS: Heparin VIAL(*) 5000 UNITS/ML VIAL (FIVE THOUSAND) SUBCUT SCH ×3 (05:45→22:33)
[2016-11-29] MEDS: Omeprazole CAP* 20 MG PO SCH (05:45)
[2016-11-29 06:02] LABS: Hematocrit 42 % (35-47); Hemoglobin 13.7 g/dl (12.0-16.0); Mean Corpuscular HGB Conc 33 g/dl (31-36); Mean Corpuscular Hemoglobin 29 pg (27-31); Mean Corpuscular Volume 90 fL (80-97); Mean Platelet Volume 11 um3 (7.4-10.4); Red Blood Count 4.68 10^6/ul (4.0-5.4); Red Cell Distribution Width 14 % (10.5-15); White Blood Count 18.7 10^3/ul (3.5-10.8)
[2016-11-29 06:15] LABS: BUN/Creatinine Ratio 22.4 (8-20); Calcium 9.3 mg/dL (8.6-10.3); EGFR African American 101.2 (>60); EGFR Non-African American 78.7 (>60); Potassium 4.3 mmol/L (3.5-5.0)
[2016-11-29] MEDS: Tiotropium CAP.INH* CAP.INH/18 MCG (USE ORDER SET !) INH SCH (07:23)
[2016-11-29] MEDS: Mometasone/Formoter 100/5 MDI INH SCH ×2 (07:23→20:37)
[2016-11-29] MEDS: Hydrochlorothiazide TAB* 25 MG PO SCH (08:43)
[2016-11-29] MEDS: Nicotine PATCH 21 MG/24 HR* PATCH TRANSDERM SCH (08:44)
[2016-11-29] MEDS: Lisinopril TAB* 10 MG PO SCH (08:44)
[2016-11-29] MEDS: cefTRIAXone VIAL(*) 1,000 MG in NS 0.9% 50 ML* 50 ML IVPB SCH (10:00)
[2016-11-29] MEDS ORDERED: Magnesium Hydroxide LIQ* 30 ML UDC PO ONE (11:30)
[2016-11-29] MEDS: HYDROcodone/ACETAMIN 5-325 MG* 1 TAB PO PRN (14:54)
--- NOTE | 2016-11-29 16:55 | PN ---
Progress Note - Progress Note Note: Pulm consult f/u note 11/29/16. Pt was seen and examined at bedside. Reports improvement in breathing and cough. Is upset and sad that she is still needing O2 Active Medications Generic Name Dose Route Start Last Admin Trade Name Freq PRN Reason Stop Dose Admin Acetaminophen 650 mg 11/27/16 20:19 Tylenol Tab* PO Q4H PRN FEVER/PAIN Acetaminophen/Hydrocodone Bitart 1 tab 11/27/16 20:27 11/29/16 14:54 [place] 5-325 Tab* PO 1 tab Q4H PRN Administration PAIN Albuterol 2 puff 11/27/16 20:30 11/28/16 02:49 Ventolin Hfa Inhaler* INH 2 puff Q4H PRN Administration SHORTNESS OF BREATH Albuterol/Ipratropium 1 neb 11/27/16 20:27 Duoneb Neb.Merari* INH Q2H PRN SOB/WHEEZING Benzonatate 200 mg 11/27/16 20:19 11/28/16 10:37 Tessalon Cap* PO 200 mg TID PRN Administration COUGH Docusate Sodium 100 mg 11/29/16 21:00 Colace Cap* PO BID [facility] Heparin Sodium (Porcine) 5,000 units 11/27/16 22:00 11/29/16 14:28 Heparin Vial(*) SUBCUT 5,000 units Q8HR [facility] Administration Hydrochlorothiazide 12.5 mg 11/28/16 09:00 11/29/16 08:43 Hydrodiuril Tab* PO 12.5 mg DAILY [facility] Administration Azithromycin 500 mg/ Sodium 250 mls @ 250 mls/hr 11/27/16 22:00 11/28/16 21: 47 Chloride IVPB 250 mls/hr Q24H [facility] Administration Ceftriaxone Sodium 1,000 mg/ 50 mls @ 200 mls/hr 11/29/16 09:00 11/29/16 10: 00 Sodium Chloride IVPB 200 mls/hr Q24H [facility] Administration Lisinopril 20 mg 11/28/16 09:00 11/29/16 08:44 Prinivil Tab* PO 20 mg DAILY [facility] Administration Methylprednisolone Sodium Succinate 40 mg 11/28/16 00:00 11/29/16 08:43 Solu-Medrol* IV 40 mg Q8H [facility] Administration Mometasone Furoate/Formoterol Fumar 2 puff 11/27/16 21:00 11/29/16 07:23 Dulera 100/5 Mdi* INH 2 puff BID [facility] Administration Morphine Sulfate 2 mg 11/27/16 20:27 11/28/16 05:40 Morphine Inj (Syringe)* IV 2 mg Q2H PRN Administration PAIN Nicotine 10 mg 11/28/16 08:53 Nicotine Inhaler* INH Q2H PRN CRAVING Nicotine 1 patch 11/28/16 09:00 11/29/16 08:44 Nicotine Patch 21 Mg/24 Hr* TRANSDERM 1 patch DAILY@0800 [facility] Administration Nicotine Polacrilex 2 mg 11/28/16 08:53 Nicotine Gum* PO Q2H PRN CRAVING Omeprazole 20 mg 11/29/16 06:00 11/29/16 05:45 Prilosec Cap* PO 20 mg DAILY@0600 [facility] Administration Pharmacy Profile Note 1 note 11/28/16 21:00 11/28/16 22:59 Nicotine Patch Removal Note* PATCH OFF Not Given 2100 [facility] Tiotropium [place] 1 cap 11/28/16 09:00 11/29/16 07:23 Spiriva Cap.Inh* INH 1 cap DAILY [facility] Administration Vital Signs Temp Pulse Resp BP Pulse Ox 97.8 F 94 18 145/90 94 11/29/16 06:36 11/29/16 07:24 11/29/16 14:54 11/29/16 06:36 11/29/16 07:24 Gen: Pt in NAD HEENT: No Scleral Icterus, Mucous Membranes Moist Neck: Trachea Midline Respiratory: Symmetrical Chest Expansion and Respiratory Effort, BS+ bilaterally with bilateral rhonchi and wheeze Cardiovascular: NL Sounds; No Murmurs; No JVD, RRR Extremities: No Edema, Digital clubbing, no cyanosis Neurological: Alert and Oriented x 3, NL Muscle Strength and Tone Laboratory Results - last 24 hr 11/29/16 11/29/16 05:33 05:33 WBC 18.7 H RBC 4.68 Hgb 13.7 Hct 42 MCV 90 MCH 29 MCHC 33 RDW 14 Plt Count 258 MPV 11 H Neut % (Auto) 91.9 H Lymph % (Auto) 4.6 L Walker % (Auto) 3.1 Eos % (Auto) 0 Baso % (Auto) 0.4 Absolute Neuts (auto) 17.2 H Absolute Lymphs (auto) 0.9 L Absolute Monos (auto) 0.6 Absolute Eos (auto) 0 Absolute Basos (auto) 0.1 Absolute Nucleated RBC 0 Nucleated RBC % 0 Sodium 135 Potassium 4.3 Chloride 101 Carbon Dioxide 29 Anion Gap 5 BUN 17 Creatinine 0.76 Est GFR ( Amer) 101.2 Est GFR (Non-Af Amer) 78.7 BUN/Creatinine Ratio 22.4 H Glucose 266 H Calcium 9.3 Assessment: I/R: Pt is a 56yo F with PMH of COPD, ongoing tobacco abuse, BRITNEY on CPAP, pancreatic CA s/p resection 2004, s/p splenectomy, who presented to ED with c/o right flank pain, but was found to be dyspneic and hypoxemic.CT chest showed mediastinal and hilar adenopathy with esophageal thickening and emphysema Pt with evidence of hypoxia improved with O2 supplementation likely sec to PNA and COPD exacerbation Pt is upset that she is needing O2 Doesnot want to be d/c ed on O2 Discussed concern with hypoxia Pt also upset after discussion with her hospitalist physician valerio jung that she would need biopsy of lymph nodes to r/o malignancy given h/o prior malignancy and smoking history even though this was discussed yesterday with her by me She has expressed very clearly that she would want to see [facility]oligt [facility] whom she has not seen for years c/w abx Pt was counseled again regarding CT chest findings and need for further evaluation Smoking cessation education was also performed She will need GI eval for EGD - Continue supplemental O2.
--- NOTE | 2016-11-29 17:57 | PN ---
Subjective Date of Service: 11/29/16 Interval History: Pt feels well. concerned about 02 use at home. Still coughing and feeling tired Family History: Unchanged from Admission Social History: Unchanged from Admission Past Medical History: Unchanged from Admission Objective Active Medications: Acetaminophen (Tylenol Tab*) 650 mg PO Q4H PRN PRN Reason: FEVER/PAIN Acetaminophen/Hydrocodone Bitart ([place] 5-325 Tab*) 1 tab PO Q4H PRN PRN Reason: PAIN Last Admin: 11/29/16 14:54 Dose: 1 tab Albuterol (Ventolin Hfa Inhaler*) 2 puff INH Q4H PRN PRN Reason: SHORTNESS OF BREATH Last Admin: 11/28/16 02:49 Dose: 2 puff Albuterol/Ipratropium (Duoneb Neb.Merari*) 1 neb INH Q2H PRN PRN Reason: SOB/WHEEZING Benzonatate (Tessalon Cap*) 200 mg PO TID PRN PRN Reason: COUGH Last Admin: 11/28/16 10:37 Dose: 200 mg Docusate Sodium (Colace Cap*) 100 mg PO BID [facility] Heparin Sodium (Porcine) (Heparin Vial(*)) 5,000 units SUBCUT Q8HR [facility] Last Admin: 11/29/16 14:28 Dose: 5,000 units Hydrochlorothiazide (Hydrodiuril Tab*) 12.5 mg PO DAILY [facility] Last Admin: 11/29/16 08:43 Dose: 12.5 mg Azithromycin 500 mg/ Sodium (Chloride) 250 mls @ 250 mls/hr IVPB Q24H [facility] Last Admin: 11/28/16 21:47 Dose: 250 mls/hr Ceftriaxone Sodium 1,000 mg/ (Sodium Chloride) 50 mls @ 200 mls/hr IVPB Q24H [facility] Last Admin: 11/29/16 10:00 Dose: 200 mls/hr Lisinopril (Prinivil Tab*) 20 mg PO DAILY [facility] Last Admin: 11/29/16 08:44 Dose: 20 mg Methylprednisolone Sodium Succinate (Solu-Medrol*) 40 mg IV Q8H [facility] Last Admin: 11/29/16 08:43 Dose: 40 mg Mometasone Furoate/Formoterol Fumar (Dulera 100/5 Mdi*) 2 puff INH BID [facility] Last Admin: 11/29/16 07:23 Dose: 2 puff Morphine Sulfate (Morphine Inj (Syringe)*) 2 mg IV Q2H PRN PRN Reason: PAIN Last Admin: 11/28/16 05:40 Dose: 2 mg Nicotine (Nicotine Inhaler*) 10 mg INH Q2H PRN PRN Reason: CRAVING Nicotine (Nicotine Patch 21 Mg/24 Hr*) 1 patch TRANSDERM DAILY@0800 [facility] Last Admin: 11/29/16 08:44 Dose: 1 patch Nicotine Polacrilex (Nicotine Gum*) 2 mg PO Q2H PRN PRN Reason: CRAVING Omeprazole (Prilosec Cap*) 20 mg PO DAILY@0600 [facility] Last Admin: 11/29/16 05:45 Dose: 20 mg Pharmacy Profile Note (Nicotine Patch Removal Note*) 1 note PATCH OFF 2100 [facility] Last Admin: 11/28/16 22:59 Dose: Not Given Tiotropium [place] (Spiriva Cap.Inh*) 1 cap INH DAILY [facility] Last Admin: 11/29/16 07:23 Dose: 1 cap Vital Signs 11/28/16 11/28/16 11/28/16 18:00 20:00 23:10 Temperature 97.9 F Pulse Rate 89 Respiratory 20 18 20 Rate Blood Pressure 152/107 (mmHg) O2 Sat by Pulse 97 Oximetry 11/28/16 11/29/16 11/29/16 23:27 00:07 03:48 Temperature 97.9 F 97.6 F Pulse Rate 98 89 72 Respiratory 20 20 20 Rate Blood Pressure 156/90 157/84 (mmHg) O2 Sat by Pulse 93 92 94 Oximetry 11/29/16 11/29/16 11/29/16 06:36 07:24 14:54 Temperature 97.8 F Pulse Rate 71 94 Respiratory 16 18 Rate Blood Pressure 145/90 (mmHg) O2 Sat by Pulse 98 94 Oximetry 11/29/16 17:16 Temperature 97.8 F Pulse Rate 77 Respiratory 24 Rate Blood Pressure 159/90 (mmHg) O2 Sat by Pulse 97 Oximetry Oxygen Devices in Use Now: Nasal Cannula Appearance: 56 yo F in nAd, aAOx3 Eyes: No Scleral Icterus, PERRLA Ears/Nose/Mouth/Throat: NL Teeth, Lips, Gums Neck: NL Appearance and Movements; NL JVP Respiratory: Symmetrical Chest Expansion and Respiratory Effort, - - b/l mid lung crackles Cardiovascular: NL Sounds; No Murmurs; No JVD, RRR Abdominal: NL Sounds; No Tenderness; No Distention, No Hepatosplenomegaly Lymphatic: No Cervical Adenopathy Extremities: No Edema, - - clubbing in fingers noted Skin: No Rash or Ulcers, No Nodules or Sclerosis Neurological: Alert and Oriented x 3, NL Muscle Strength and Tone Result Diagrams: 11/29/16 05:33 11/29/16 05:33 Additional Lab and Data: Lab Results 11/27/16 11/27/16 11/27/16 Range/Units 09:30 10:00 10:00 WBC 15.2 H (3.5-10.8) 10^3/ul RBC 5.16 (4.0-5.4) 10^6/ul Hgb 15.3 (12.0-16.0) g/dl Hct 46 (35-47) % MCV 90 (80-97) fL MCH 30 (27-31) pg MCHC 33 (31-36) g/dl RDW 14 (10.5-15) % Plt Count 248 (150-450) 10^3/ul MPV 11 H (7.4-10.4) um3 Neut % (Auto) 74.5 (38-83) % Lymph % (Auto) 14.6 L (25-47) % [place] % (Auto) 9.0 (1-9) % Eos % (Auto) 1.4 (0-6) % Baso % (Auto) 0.5 (0-2) % Absolute Neuts (auto) 11.3 H (1.5-7.7) 10^3/ul Absolute Lymphs (auto) 2.2 (1.0-4.8) 10^3/ul Absolute Monos (auto) 1.4 H (0-0.8) 10^3/ul Absolute Eos (auto) 0.2 (0-0.6) 10^3/ul Absolute Basos (auto) 0.1 (0-0.2) 10^3/ul Absolute Nucleated RBC 0.01 10^3/ul Nucleated RBC % 0 INR (Anticoag Therapy) 0.94 (0.89-1.11) APTT 30.1 (26.0-36.3) seconds Sodium (133-145) mmol/L Potassium (3.5-5.0) mmol/L Chloride (101-111) mmol/L Carbon Dioxide (22-32) mmol/L Anion Gap (2-11) mmol/L BUN (6-24) mg/dL Creatinine (0.51-0.95) mg/dL Est GFR ( Amer) (>60) Est GFR (Non-Af Amer) (>60) BUN/Creatinine Ratio (8-20) Glucose (70-100) mg/dL Lactic Acid (0.5-2.0) mmol/L Calcium (8.6-10.3) mg/dL Total Bilirubin (0.2-1.0) mg/dL AST (13-39) U/L ALT (7-52) U/L Alkaline Phosphatase (34-104) U/L Troponin I (<0.04) ng/mL C-Reactive Protein (< 5.00) mg/L Total Protein (6.4-8.9) g/dL Albumin (3.2-5.2) g/dL Globulin (2-4) g/dL Albumin/Globulin Ratio (1-3) Lipase (11.0-82.0) U/L Urine Color Straw Urine Appearance Clear Urine pH 6.0 (5-9) Ur Specific [place] 1.004 L (1.010-1.030) Urine Protein Negative (Negative) Urine Ketones Negative (Negative) Urine Blood Negative (Negative) Urine Nitrate Negative (Negative) Urine Bilirubin Negative (Negative) Urine Urobilinogen Negative (Negative) Ur Leukocyte Esterase Negative (Negative) Urine Glucose Negative (Negative) 11/27/16 11/27/16 Range/Units 10:00 10:00 WBC (3.5-10.8) 10^3/ul RBC (4.0-5.4) 10^6/ul Hgb (12.0-16.0) g/dl Hct (35-47) % MCV (80-97) fL MCH (27-31) pg MCHC (31-36) g/dl RDW (10.5-15) % Plt Count (150-450) 10^3/ul MPV (7.4-10.4) um3 Neut % (Auto) (38-83) % Lymph % (Auto) (25-47) % [place] % (Auto) (1-9) % Eos % (Auto) (0-6) % Baso % (Auto) (0-2) % Absolute Neuts (auto) (1.5-7.7) 10^3/ul Absolute Lymphs (auto) (1.0-4.8) 10^3/ul Absolute Monos (auto) (0-0.8) 10^3/ul Absolute Eos (auto) (0-0.6) 10^3/ul Absolute Basos (auto) (0-0.2) 10^3/ul Absolute Nucleated RBC 10^3/ul Nucleated RBC % INR (Anticoag Therapy) (0.89-1.11) APTT (26.0-36.3) seconds Sodium 134 (133-145) mmol/L Potassium 3.6 (3.5-5.0) mmol/L Chloride 100 L (101-111) mmol/L Carbon Dioxide 27 (22-32) mmol/L Anion Gap 7 (2-11) mmol/L BUN 12 (6-24) mg/dL Creatinine 0.85 (0.51-0.95) mg/dL Est GFR ( Amer) 89.0 (>60) Est GFR (Non-Af Amer) 69.2 (>60) BUN/Creatinine Ratio 14.1 (8-20) Glucose 121 H (70-100) mg/dL Lactic Acid 0.7 (0.5-2.0) mmol/L Calcium 9.3 (8.6-10.3) mg/dL Total Bilirubin 0.60 (0.2-1.0) mg/dL AST 16 (13-39) U/L ALT 13 (7-52) U/L Alkaline Phosphatase 64 (34-104) U/L Troponin I 0.01 (<0.04) ng/mL C-Reactive Protein 84.89 H (< 5.00) mg/L Total Protein 7.2 (6.4-8.9) g/dL Albumin 3.9 (3.2-5.2) g/dL Globulin 3.3 (2-4) g/dL Albumin/Globulin Ratio 1.2 (1-3) Lipase 34 (11.0-82.0) U/L Urine Color Urine Appearance Urine pH (5-9) Ur Specific [place] (1.010-1.030) Urine Protein (Negative) Urine Ketones (Negative) Urine Blood (Negative) Urine Nitrate (Negative) Urine Bilirubin (Negative) Urine Urobilinogen (Negative) Ur Leukocyte Esterase (Negative) Urine Glucose (Negative) Assess/Plan/Problems-Billing Assessment: Mrs. Carpenter is a 56yo F with PMH of COPD, tobacco abuse, BRITNEY on CPAP, pancreatic CA s/p resection 2004, s/p splenectomy, who presented to ED with c/o right flank pain, but was found to be dyspneic and hypoxemic. - Patient Problems (1) Right flank pain Comment: Etiology unclear.Resolved CT without contrast showed no nephrolithiasis or hydronephrosis, CT with contrast showed mild esophageal thickening suggestive of inflammation, TV US showed no acute findings. Will continue to monitor. (2) Acute and chronic respiratory failure Comment: Suspect she has chronic respiratory failure as her SO2 dropped to the 60s 2 days ago. She also has clubbing. Continue supplemental O2.Eval for need of home 02 at discharge (3) COPD exacerbation Comment: Secondary to pneumonia. Legionella and pneumococcal Ag are negative. Continue Ceftriaxone, Zithromax, steroids and bronchodilators. Flutter valve. (4) Mediastinal adenopathy Comment: CTA chest showed patchy bilateral upper lobe infiltrates suggestive of pneumonia, but also shows small bilateral pulmonary nodules and enlarged mediastinal or hilar lymph nodes. Differential includes malignancy (patient is a smoker, has h/o pancreatic CA, mild esophageal thickening on CT), sarcoidosis. Pulm consultation appreciated. Pt plans to f/u with [facility] (5) Esophageal thickening Comment: CT chest shows mild thickening of the esophageal wall. This likely represents esophagitis. Patient has no chest pain or dysphagia. Cont PPI. (6) HTN (hypertension) Comment: - Continue Lisinopril and HCTZ. (7) DVT prophylaxis Comment: - SQ heparin. Status and Disposition: Inpatient.
[2016-11-29] MEDS: Benzonatate CAP* 100 MG PO PRN (18:03)
[2016-11-29] MEDS: Azithromycin IV(*) 500 MG in NS 0.9% 250 ML* 250 ML IVPB SCH (22:23)
[2016-11-29] MEDS: Docusate CAP* 100 MG PO SCH (22:32)
[2016-11-29] MEDS: Nicotine Patch Removal NOTE PATCH OFF SCH (22:34)
[2016-11-30] MEDS: Omeprazole CAP* 20 MG PO SCH (06:30)
[2016-11-30] MEDS: Heparin VIAL(*) 5000 UNITS/ML VIAL (FIVE THOUSAND) SUBCUT SCH (06:30)
[2016-11-30 08:11] VITALS: BP 147/95
[2016-11-30] MEDS: Nicotine PATCH 21 MG/24 HR* PATCH TRANSDERM SCH (08:15)
[2016-11-30] MEDS: Hydrochlorothiazide TAB* 25 MG PO SCH (08:16)
[2016-11-30] MEDS: Lisinopril TAB* 10 MG PO SCH (08:17)
[2016-11-30] MEDS: Docusate CAP* 100 MG PO SCH (08:17)
[2016-11-30] MEDS: Mometasone/Formoter 100/5 MDI INH SCH (08:24)
[2016-11-30] MEDS: Tiotropium CAP.INH* CAP.INH/18 MCG (USE ORDER SET !) INH SCH (08:25)
[2016-11-30] MEDS: predniSONE TAB* 20 MG PO SCH ×2 (11:45→11:52)
[2016-11-30] MEDS: cefTRIAXone VIAL(*) 1,000 MG in NS 0.9% 50 ML* 50 ML IVPB SCH (11:45)
--- NOTE | 2016-11-30 23:39 | DS ---
DISCHARGE SUMMARY: DATE OF ADMISSION: 11/27/16 DATE OF DISCHARGE: 11/30/16 PRIMARY CARE PHYSICIAN: Dr. Carmichael. DISCHARGE DIAGNOSES: 1. Community-acquired pneumonia, bilateral. 2. Chronic obstructive pulmonary disease exacerbation. 3. Acute on presumed chronic hypoxemic respiratory failure. 4. Mild thickening of the esophagus. The patient was started on PPI during her hospital stay. 5. Mediastinal lymphadenopathy noted on CT. CONSULTATIONS DURING THE HOSPITAL STAY: Include Dr. Szymanski from Pulmonology. MEDICATIONS AT DISCHARGE: Include: 1. Albuterol inhaler 1 to 2 puffs every 4 hours p.r.n. 2. Augmentin 875 mg b.i.d. for the next 3 days. 3. Azithromycin 250 mg p.o. daily for the next 2 days. 4. Advair Diskus 100/50 one inhalation b.i.d. 5. Hydrochlorothiazide 12.5 mg daily. 6. Lisinopril 20 mg daily. 7. Omeprazole 20 mg daily. 8. Spiriva one inhalation daily. 9. Prednisone 50 mg daily for another 3 days, then stop. LABORATORY DATA AND STUDIES PERFORMED DURING THE HOSPITAL STAY: Included: On 11/29/16, white blood cell count of 18.7, hemoglobin of 13.7, hematocrit of 42, and platelets of 258. Sodium was 135, potassium 4.3, chloride 101, carbon dioxide 29, BUN 17, creatinine 0.76. The patient had a CT of abdomen and pelvis obtained on 11/27/16, impression: "Status post partial pancreatectomy and splenectomy. No hydronephrosis or nephrolithiasis. Stable right adrenal nodule." Transvaginal ultrasound obtained on 11/27/16, impression: "Status post hysterectomy. Otherwise unremarkable study." CT angiogram of the chest, abdomen, and pelvis obtained on 11/27/16, impression : "No evidence of pulmonary embolism. Patchy bilateral upper lobe infiltrates suspicious for pneumonia. Small bilateral pulmonary nodules, differential diagnosis would include metastatic disease, inflammatory or infectious nodules of granulomatous disease. Enlarged mediastinal and hilar lymph nodes, consider a neoplastic process as well as sarcoidosis. Stable right adrenal nodule. Status post partial pancreatectomy and splenectomy. Mild intra and extrahepatic ductal distention, unchanged significantly. Mild thickening of the wall of the esophagus, likely inflammatory, although nonspecific, consider endoscopy." At discharge, the patient was recommended to follow up with Dr. Carmichael with a scheduled appointment on 12/03/16 at 8:40 a.m. The patient was also recommended to follow up with the vocational aide that she had seen in the past from the [facility] in regards to mediastinal and lung lymphadenopathy. Possibility of upper endoscopy is to be considered due to the patient's history of mildly thickened esophagus noted on the CT. The patient was started on omeprazole during the hospital stay. HOSPITALIZATION COURSE: Elisa Carpenter is a 56-year-old female who has history of significant smoking as documented in Dr. Boswell's history and physical on 11/13 and who presents with complaints of shortness of breath. The patient also complained of flank pain. The patient was diagnosed with pneumonia as well as COPD exacerbation. For her flank pain, the above-mentioned CT of the abdomen and pelvis was obtained that failed to document nephrolithiasis. The pain resolved as the days of admission progressed with an aid of oxycodone treatment. Resolved a couple of days prior to the patient's discharge. The CT of the chest showed mediastinal lymphadenopathy. The patient stated that she has a history of lymphadenopathy and she was evaluated by a vocational aide in the past. She was seen by Dr. Szymanski in consultation who recommended a bronchoscopy evaluation as an outpatient. The patient prefers to see her vocational aide as an outpatient from the [facility] and most likely will need to be referred by Dr. Carmichael since she currently does not recall the physician's name. The patient was strongly encouraged to do so and informed that the differential of mediastinal lymphadenopathy apart from the ongoing infection is malignancy in this patient with significant history of pancreatic malignancy in the past. The patient also has a mild thickening of the esophagus, most likely related to inflammation, but nevertheless consideration for upper endoscopy has to be undertaken in the near future due to the patient's above-mentioned history of malignancy. The patient was significantly hypoxic throughout her hospital stay, but by the time of discharge, she was ambulating well on room air without desaturations. She did not require nebulizer treatments as needed the day prior to discharge and otherwise, she did very well. She was strongly encouraged to stop smoking at discharge. PHYSICAL EXAMINATION AT THE TIME OF DISCHARGE: Blood pressure 147/95, heart rate of 77 and regular, respiratory rate 18, oxygen saturation 97% on room air, and temperature 97.7. General: The patient is a very pleasant 56-year-old female who is in no acute distress. Alert, awake, and oriented x3. HEENT: Head atraumatic, normocephalic. Eyes: Pupils equal, reactive to light and accommodation. Oropharynx clear. Mucosa moist. Neck: Supple. No JVD, no bruit bilaterally. Cardiovascular: Regular rate and rhythm. No murmurs. Respiratory: Scant, dry, bilateral upper lobe crackles. Otherwise clear. Abdomen: Soft, nontender. Bowel sounds present in all 4 quadrants. Extremities: There is no edema. Pulses are +2 bilaterally. No clubbing or cyanosis. Please note that this is a short summary of the patient's hospital stay. Please refer to further medical records for details. TIME SPENT: Approximately 35 minutes were spent on the patient's discharge. CC: Dr. Carmichael; Dr. Szymanski * [id number]/[facility] #: [id number] MTDD
== END 2016-11-30 14:20 | disposition home or self-care (01) | DRG 140 ==
LOC: ED 09:03 → MED 20:27
PROVIDERS: ADMIT Internal Medicine; ATTEND Internal Medicine
DX: J44.0 Chronic obstructive pulmonary disease with (acute) lower respiratory infection (principal); J96.21 Acute and chronic respiratory failure with hypoxia; J18.9 Pneumonia, unspecified organism; I10 Essential (primary) hypertension; F17.210 Nicotine dependence, cigarettes, uncomplicated; J44.1 Chronic obstructive pulmonary disease with (acute) exacerbation; F41.9 Anxiety disorder, unspecified; F32.9 Major depressive disorder, single episode, unspecified; R10.11 Right upper quadrant pain; R59.0 Localized enlarged lymph nodes; G47.33 Obstructive sleep apnea (adult) (pediatric); E27.8 Other specified disorders of adrenal gland; R91.8 Other nonspecific abnormal finding of lung field; K22.8 Other specified diseases of esophagus; Z85.07 Personal history of malignant neoplasm of pancreas; Z90.49 Acquired absence of other specified parts of digestive tract; Z90.710 Acquired absence of both cervix and uterus; Z88.5 Allergy status to narcotic agent; Z88.8 Allergy status to other drugs, medicaments and biological substances; Z83.3 Family history of diabetes mellitus; Z82.49 Family history of ischemic heart disease and other diseases of the circulatory system; Z82.61 Family history of arthritis; Z83.49 Family history of other endocrine, nutritional and metabolic diseases; Z72.89 Other problems related to lifestyle
CPT/HCPCS: 36415; 71275; 74176; 74177; 76830; 80048; 80053; 81003; 83605; 83690; 84484; 85025; 85610; 85730; 86140; 87070; 87205; 87899; 90686; 90732; 93005; 94640; 94760; 99406; A9270-GY; J0456; J0696; J1644; J1885; J2270; J2405; J2920; J2930; J7512; Q9967

== ENCOUNTER 2018-03-28 08:06 | Inpatient (IN) | payer BC ==
[2018-03-28] MEDS ORDERED: Albuterol/Ipratropium NEB.SOL* Albuterol 2.5 MG/Ipratropium 0.5 MG 3 ML ONE (08:27)
[2018-03-28] MEDS ORDERED: Albuterol/Ipratropium NEB.SOL* Albuterol 2.5 MG/Ipratropium 0.5 MG 3 ML INH ONE ×2 (08:32→09:06)
[2018-03-28] MEDS ORDERED: methylPREDNISolone 125 MG* 2 ML VIAL IV ONE (09:06)
--- NOTE | 2018-03-28 09:44 | RAD ---
Indication: Shortness of breath, cough, COPD. Comparison: November 27, 2016 CT. Technique: PA and lateral chest views. Report: Elevated lung volumes and both diffuse mild prominence of the interstitial markings and patchy rarefaction of the mid to upper lung zone interstitial markings. No focal pulmonary lesion, compelling alveolar consolidation, pleural effusion, pneumothorax. The heart, pulmonary vasculature, and mediastinal contours are unremarkable. No suspicious osseous lesions evident. Multilevel mild thoracic degenerative spondylosis. IMPRESSION: Stigmata of obstructive lung disease. No acute pulmonary or cardiac process evident.
[2018-03-28 09:46] LABS: ABS Basophils 0.1 10^3/ul (0-0.2); ABS Eosinophils 0.1 10^3/ul (0-0.6); ABS Lymphocytes 2.4 10^3/ul (1.0-4.8); ABS Monocytes 1.5 10^3/ul (0-0.8); ABS Neutrophils 12.7 10^3/ul (1.5-7.7); ABS Nucleated RBC 0 10^3/ul; Eosinophil % 0.3 % (0-6); Hematocrit 53 % (35-47); Hemoglobin 17.4 g/dl (12.0-16.0); Lymphocyte % 14.2 % (25-47); Mean Corpuscular HGB Conc 33 g/dl (31-36); Mean Corpuscular Hemoglobin 29 pg (27-31); Mean Corpuscular Volume 88 fL (80-97); Mean Platelet Volume 10.6 um3 (7.4-10.4); Nucleated Red Blood Cells % 0; Platelet Count 232 10^3/ul (150-450); Red Blood Count 6.04 10^6/ul (4.0-5.4); Red Cell Distribution Width 15 % (10.5-15); White Blood Count 16.7 10^3/ul (3.5-10.8)
[2018-03-28] MEDS ORDERED: Albuterol/Ipratropium NEB.SOL* Albuterol 2.5 MG/Ipratropium 0.5 MG 3 ML INH PRN (10:21)
[2018-03-28] MEDS ORDERED: Acetaminophen TAB* 325 MG PO PRN (13:20)
[2018-03-28] MEDS ORDERED: Albuterol HFA INHALER* 8 gm MDI INH PRN (13:26)
[2018-03-28] MEDS ORDERED: Mouth Piece, Nicotine* 1 EACH CARTRIDGE INH PRN (13:28)
[2018-03-28] MEDS ORDERED: cefTRIAXone(*) 1 GM in NS 0.9% 50 ML* 50 ML IVPB SCH (14:00)
[2018-03-28] MEDS ORDERED: methylPREDNISolone SOD 40 MG* 1 ML VIAL IV SCH (14:00)
[2018-03-28] MEDS ORDERED: Azithromycin IV(*) 500 MG in NS 0.9% 250 ML* 250 ML IVPB SCH (14:30)
[2018-03-28] MEDS ORDERED: Diltiazem CD CAP* 120 MG PO ONE (14:30)
[2018-03-28] MEDS: Heparin VIAL(*) 5000 UNITS/ML VIAL (FIVE THOUSAND) SUBCUT SCH ×2 (14:40→22:06)
[2018-03-28] MEDS: cefTRIAXone(*) 1 GM in NS 0.9% 50 ML* 50 ML IVPB SCH (15:35)
[2018-03-28] MEDS: Azithromycin IV(*) 500 MG in NS 0.9% 250 ML* 250 ML IVPB SCH (16:05)
[2018-03-29] MEDS: Mometasone/Formoter 100/5 MDI INH SCH ×3 (02:31→20:05)
[2018-03-29] MEDS: Omeprazole CAP* 20 MG PO SCH (05:31)
[2018-03-29] MEDS: Heparin VIAL(*) 5000 UNITS/ML VIAL (FIVE THOUSAND) SUBCUT SCH ×3 (05:31→20:35)
--- NOTE | 2018-03-29 08:30 | HP ---
AMENDED REPORT NOW INCLUDES COSIGNER DESIGNATION - ESIGNED BEFORE ADJUSTMENT CC: Dr. Carmichael.* HISTORY AND PHYSICAL: DATE OF ADMISSION: 03/28/18 PROVIDER: Latonya Stewart NP PRIMARY CARE PROVIDER: Dr. Carmichael. ATTENDING PHYSICIAN WHILE IN THE HOSPITAL: Buffy Nolasco MD * (dictated by Latonya Stewart NP) CHIEF COMPLAINT: 1. Shortness of breath. 2. Cough. HISTORY OF PRESENT ILLNESS: Ms. Carpenter is a 58-year-old female who carries a past medical history significant for hypertension, COPD, history of pancreatic cancer in 2005 and sleep apnea. She presented to the emergency room today complaining of increased shortness of breath that has been progressively worsening throughout the week. The patient reports that last Saturday03/19/18 she started with allergy type symptoms of rhinorrhea, nasal congestion, maxillary and frontal sinus pressure and a mild cough. She did go camping over the weekend and did not feel any better. continued to feel short of breath and progressively worsening cough. On saturday she was seen at [facility]. She was placed on Augmentin and prednisone and diagnosed with bronchitis and maxillary and frontal sinusitis. She started her antibiotic treatment and prednisone. She reports that this morning at 3 a.m., she woke up, she was unable to breathe. She was doing multiple respiratory treatments with no relief. She waited until she could call somebody to bring her to the emergency room for further evaluation. While in the emergency room, the patient had routine lab work. She was given nebulizer treatment. She was placed on the monitor and given oxygen. Her white count on admission was 16.7. Her O2 saturation on room air was 81%. She was afebrile on admission to the hospital. She did receive Solu-Medrol 125 in the emergency room and DuoNeb x3. She does report that she is feeling a little bit better. She continues to have a moist cough and some mild respiratory distress. Due to her failed outpatient treatment, we were asked to see and evaluate her for admission due to her increased shortness of breath and hypoxia. PAST MEDICAL HISTORY: Significant for: 1. Hypertension. 2. COPD. 3. Pancreatic cancer in 2005. 4. Sleep apnea. PAST SURGICAL HISTORY: 1. Pancreectomy for cancer. 2. Splenectomy. 3. Cholecystectomy. 4. Hysterectomy. HOME MEDICATIONS: Include: 1. Tramadol 50 mg p.o. q.4 hours as needed for pain. 2. Prednisone 20 mg p.o. daily. 3. Diltiazem 120 mg p.o. daily. 4. Hydrochlorothiazide 12.5 mg p.o. daily. 5. Spiriva 1 cap p.o. daily. 6. Omeprazole 20 mg p.o. daily. 7. Lisinopril 20 mg p.o. daily. 8. Advair Diskus 100/50 one puff b.i.d. 9. Amoxicillin clavulanate 875 p.o. b.i.d. 10. Albuterol HFA 1 to 2 puffs q.4 hours as needed for shortness of breath. ALLERGIES TO MEDICATIONS: She is allergic to OXYCODONE and WELLBUTRIN. FAMILY HISTORY: Father with a history of bypass, [place], and hypertension. Father with a history of diabetes. Mother with a history of skin cancer. SOCIAL HISTORY: The patient is currently a half a pack per day smoker. She drinks alcohol occasionally. She denies any illicit drug use. She is . Surrogate decision maker in the event she is unable to make her own decisions is her , Ismael, his phone number is [phone]. Second surrogate decision maker is her mother, Florence Bullard, her number is [phone]. She is a full code. REVIEW OF SYSTEMS: She does report fevers last week. She does report some loss of appetite. Denies any chest pain, denies any edema. She does report a moist cough. She denies any hemoptysis. Does report increased progressively worsening shortness of breath since last Saturday03/19/18. She denies any nausea or vomiting. She does report some diarrhea since starting the antibiotic. Denies any abdominal pain. She denies any hematuria or dysuria. Denies any focal weakness or sensory loss. Denies any visual complaints. Denies any dysphagia. No rashes or lesions. Denies any increased depression. She does report some anxiety. PHYSICAL EXAMINATION GENERAL: At this time, Ms. Carpenter is a 58-year-old female who appears in mild respiratory distress, sitting on the stretcher in the emergency room. speaking in short sentences. VITAL SIGNS: As follows: Temperature was 98.9, pulse was 110, respirations were 24, O2 saturation was 93% on 7 L, blood pressure 119/81. HEENT: Head is atraumatic, normocephalic. Eyes: EOMs are intact. Sclerae anicteric and not pale. Oral mucosa appeared to be dry. NECK: Supple. LUNGS: Expiratory wheezes throughout with diminished breath sounds in the bases bilaterally. few scattered rhonchi. no rales CARDIAC: S1, S2. Regular rate and rhythm. No murmurs, rubs, or gallops. ABDOMEN: Soft and nontender. Bowel sounds are present x4. EXTREMITIES: Pulses are +2 throughout. She is able to move all 4 extremities with 5/5 strength. no edema NEUROLOGIC: She is awake, alert, oriented x4. Her speech is clear. There is no focal deficit. SKIN: Intact. DIAGNOSTIC STUDIES/LABORATORY DATA: WBCs are 6.7, RBCs 6.04, hemoglobin 17.4, hematocrit was 53. Sodium 138, potassium 3.6, chloride 101, carbon dioxide was 28. BUN was 17, creatinine 0.77. Lactic acid was 0.7. Glucose was 117. She had a chest x-ray. Radiologist's impression: Stigmata of obstructive lung disease. No acute pulmonary or cardiac process evident. ASSESSMENT AND PLAN: Ms. Carpenter is a 58-year-old female who presented to the emergency room today with progressively worsening shortness of breath and cough. We were asked to evaluate her due to her acute hypoxic respiratory failure. She will be admitted under observation for: 1. Acute on chronic hypoxic respiratory failure. I suspect that this is related to chronic obstructive pulmonary disease exacerbation as well as bronchitis. She did fail outpatient antibiotic and prednisone therapy, which were started on Saturday. We will place her on Solu-Medrol IV 40 mg IV q.12 hours. I will give her azithromycin and ceftriaxone as well. We will continue to do nebulizers and give her inhalers as needed for her shortness of breath. 2. Hypertension. We will continue her lisinopril 20 mg p.o. daily. 3. Sleep apnea. The patient wears a CPAP at night. We will continue CPAP during hospitalization. 4. FEN: She will be placed on regular unrestricted diet. 5. DVT prophylaxis: She will be placed on heparin subcu 5000 units. 6. Code status: She is a full code. TIME SPENT: Time spent on this admission was approximately 60 minutes, greater than half of that time was spent [id number] with the patient obtaining my history and physical. The other half of the time was spent going over the plan of care and implementing my plan of care. I discussed this plan with my attending, Dr. Nolasco; she is in agreement with my plan. LATONYA STEWART, DIMITRI [id number]/[facility] #: [id number] KENISHA
[2018-03-29] MEDS: Tiotropium CAP.INH* CAP.INH/18 MCG (USE ORDER SET !) INH SCH (08:35)
[2018-03-29 08:52] LABS: ABS Basophils 0 10^3/ul (0-0.2); ABS Eosinophils 0 10^3/ul (0-0.6); ABS Lymphocytes 0.7 10^3/ul (1.0-4.8); ABS Monocytes 1.1 10^3/ul (0-0.8); ABS Neutrophils 12.5 10^3/ul (1.5-7.7); ABS Nucleated RBC 0 10^3/ul; Eosinophil % 0 % (0-6); Hematocrit 52 % (35-47); Lymphocyte % 5.1 % (25-47); Mean Corpuscular HGB Conc 33 g/dl (31-36); Mean Corpuscular Hemoglobin 29 pg (27-31); Mean Corpuscular Volume 90 fL (80-97); Mean Platelet Volume 10.8 um3 (7.4-10.4); Nucleated Red Blood Cells % 0.1; Platelet Count 229 10^3/ul (150-450); Red Cell Distribution Width 15 % (10.5-15); White Blood Count 14.4 10^3/ul (3.5-10.8)
[2018-03-29] MEDS ORDERED: Spiriva Inhaler DEVICE* 1 EACH DEVICE INH ONE (09:00)
[2018-03-29 09:16] LABS: EGFR Non-African American 88.9 (>60)
[2018-03-29] MEDS: traMADol TAB* 50 MG PO PRN (09:28)
[2018-03-29] MEDS: Lisinopril TAB* 10 MG PO SCH (09:29)
[2018-03-29] MEDS: Hydrochlorothiazide TAB* 25 MG PO SCH (09:29)
[2018-03-29] MEDS: Nicotine Inhaler* 10 MG AMP INH PRN (09:31)
[2018-03-29] MEDS: methylPREDNISolone SOD 40 MG* 1 ML VIAL IV SCH ×2 (09:31→20:35)
[2018-03-29] MEDS: Diltiazem CD CAP* 120 MG PO SCH (09:31)
[2018-03-29] MEDS ORDERED: Albuterol 2.5 MG/3 ML NEB.SOL* (0.083%) INH PRN (12:07)
[2018-03-29] MEDS: Albuterol/Ipratropium NEB.SOL* Albuterol 2.5 MG/Ipratropium 0.5 MG 3 ML INH SCH ×3 (13:29→20:02)
[2018-03-29] MEDS: cefTRIAXone(*) 1 GM in NS 0.9% 50 ML* 50 ML IVPB SCH (13:47)
[2018-03-29] MEDS: Azithromycin IV(*) 500 MG in NS 0.9% 250 ML* 250 ML IVPB SCH (15:10)
--- NOTE | 2018-03-29 15:18 | PN ---
Subjective Date of Service: 03/29/18 Interval History: Patient feels much less SOB today. No cough, mild sputum production. No F/C, N/V , abdominal pain, CP, Abdominal pain, diarrhea, dysuria, or other pain. Patient still smokes when she is stressed. Still feels that she needs to smoke for this purpose. Poor exercise tolerance at this time. Family History: Unchanged from Admission Social History: Unchanged from Admission Past Medical History: Unchanged from Admission Objective Active Medications: Acetaminophen (Tylenol Tab*) 650 mg PO Q4H PRN PRN Reason: FEVER/PAIN Albuterol (Ventolin 2.5 Mg/3 Ml Neb.Merari*) 2.5 mg INH Q2H PRN PRN Reason: SOB/WHEEZING Albuterol/Ipratropium (Duoneb (Albuterol 2.5 Mg/Ipratropium 0.5 Mg)) 1 neb INH [id number] AWAKE [facility] Last Admin: 03/29/18 13:29 Dose: 1 neb Device (Nicotine Mouth Piece*) 1 each INH .USE WITH NICOTROL PRN PRN Reason: CRAVING Last Admin: 03/29/18 09:31 Dose: 1 each Diltiazem HCl (Cardizem Cd Cap*) 120 mg PO DAILY [facility] Last Admin: 03/29/18 09:31 Dose: 120 mg Heparin Sodium (Porcine) (Heparin Vial(*)) 5,000 units SUBCUT Q8HR [facility] Last Admin: 03/29/18 14:01 Dose: 5,000 units Hydrochlorothiazide (Hydrodiuril Tab*) 12.5 mg PO DAILY [facility] Last Admin: 03/29/18 09:29 Dose: 12.5 mg Ceftriaxone Sodium 1 gm/ (Sodium Chloride) 50 mls @ 200 mls/hr IVPB Q24HR@1500 [facility] Last Admin: 03/29/18 13:47 Dose: 200 mls/hr Azithromycin 500 mg/ Sodium (Chloride) 250 mls @ 250 mls/hr IVPB Q24HR@1530 [facility] Last Admin: 03/29/18 15:10 Dose: 250 mls/hr Lisinopril (Prinivil Tab*) 20 mg PO DAILY [facility] Last Admin: 03/29/18 09:29 Dose: 20 mg Methylprednisolone Sodium Succinate (Solu-Medrol 40 Mg) 40 mg IV Q12H [facility] Last Admin: 03/29/18 09:31 Dose: 40 mg Mometasone Furoate/Formoterol Fumar (Dulera 100/5 Mdi*) 2 puff INH BID [facility] Last Admin: 03/29/18 08:35 Dose: 2 puff Nicotine (Nicotine Inhaler*) 10 mg INH Q2H PRN PRN Reason: CRAVING Last Admin: 03/29/18 09:31 Dose: 10 mg Omeprazole (Prilosec Cap*) 20 mg PO DAILY@0600 [facility] Last Admin: 03/29/18 05:31 Dose: 20 mg Tiotropium [place] (Spiriva Cap.Inh*) 1 cap INH DAILY [facility] Last Admin: 03/29/18 08:35 Dose: 1 cap Tramadol HCl (Ultram*) 50 mg PO Q4HR PRN PRN Reason: PAIN Last Admin: 03/29/18 09:28 Dose: 50 mg Vital Signs - 8 hr 03/29/18 03/29/18 03/29/18 07:45 08:38 09:28 Temperature 98.4 F Pulse Rate 92 99 Respiratory 18 22 18 Rate Blood Pressure 131/78 (mmHg) O2 Sat by Pulse 95 93 Oximetry 03/29/18 13:57 Temperature Pulse Rate 93 Respiratory 18 Rate Blood Pressure (mmHg) O2 Sat by Pulse 95 Oximetry Oxygen Devices in Use Now: Nasal Cannula Appearance: Patient is a 58yo female who appears stated age and is sitting in the bed in [facility]. Eyes: No Scleral Icterus, PERRLA Ears/Nose/Mouth/Throat: NL Teeth, Lips, Gums, Clear Oropharnyx, Mucous Membranes Moist Neck: NL Appearance and Movements; NL JVP Respiratory: Symmetrical Chest Expansion and Respiratory Effort, - - Diminished breath sounds with wheezes and rhonchi throughout. Cardiovascular: NL Sounds; No Murmurs; No JVD, RRR, No Edema Abdominal: NL Sounds; No Tenderness; No Distention, No Hepatosplenomegaly Lymphatic: No Cervical Adenopathy Extremities: No Edema, No Clubbing, Cyanosis Skin: No Rash or Ulcers, No Nodules or Sclerosis Neurological: Alert and Oriented x 3, NL Sensation, NL Muscle Strength and Tone , - - CN II-XII intact. Result Diagrams: 03/29/18 08:25 03/29/18 08:25 Assess/Plan/Problems-Billing Assessment: Patient is a 58yo female with a PMH for Pancreatic Cancer S/P resection, COPD, HTN, BRITNEY who is here with a COPD exacerbation with significantly increased O2 demand. - Patient Problems (1) Acute and chronic respiratory failure Current Visit: No Status: Acute Code(s): J96.20 - ACUTE AND CHR RESP FAILURE , UNSP W HYPOXIA OR HYPERCAPNIA SNOMED Code(s): 78576825 Comment: Currently on 6L O2 NC. Likely due to COPD exacerbation. Does not wear O2 at home. Follows with supervisor audit clerks in [place]. Unknown results of 6 minute walk or PFTs. Follow up outpatient for appreopriateness of continuous O2 therapy. (2) COPD exacerbation Current Visit: No Status: Acute Code(s): J44.1 - CHRONIC OBSTRUCTIVE PULMONARY DISEASE W (ACUTE) EXACERBATION SNOMED Code(s): 231621584233057 Comment: Likely secondary to bronchitis with atopic component due to seasonal allergies. No infiltrate on CXR. Failed outpatient therapy. Procalcitonin pending. Continue Ceftriaxone, Zithromax, Steroids, Scheduled inhalers and nebulizers, ISB and Flutter valve. Consider D/Cing Antibiotics pending procalcitonin. (3) HTN (hypertension) Current Visit: No Status: Acute Code(s): I10 - ESSENTIAL (PRIMARY) HYPERTENSION SNOMED Code(s): 38698138 Comment: Continue Lisinopril, HCTZ, and Diltiazem (4) Pancreatic cancer Current Visit: Yes Status: Acute Comment: S/P resection with Splenectomy. (5) DVT prophylaxis Current Visit: No Status: Acute Code(s): IBN2229 - SNOMED Code(s): 476109835 Comment: SQ heparin. (6) Full code status Current Visit: No Status: Acute Code(s): Z78.9 - OTHER SPECIFIED HEALTH STATUS SNOMED Code(s): 874276630 Status and Disposition: Admitted Inpatient.
[2018-03-30] MEDS: Albuterol/Ipratropium NEB.SOL* Albuterol 2.5 MG/Ipratropium 0.5 MG 3 ML INH SCH ×5 (00:20→20:09)
[2018-03-30] MEDS: Omeprazole CAP* 20 MG PO SCH (05:19)
[2018-03-30] MEDS: Heparin VIAL(*) 5000 UNITS/ML VIAL (FIVE THOUSAND) SUBCUT SCH ×3 (05:19→21:43)
[2018-03-30 05:53] LABS: ABS Basophils 0.1 10^3/ul (0-0.2); ABS Eosinophils 0 10^3/ul (0-0.6); ABS Lymphocytes 0.6 10^3/ul (1.0-4.8); ABS Monocytes 0.5 10^3/ul (0-0.8); ABS Neutrophils 14.7 10^3/ul (1.5-7.7); ABS Nucleated RBC 0 10^3/ul; Eosinophil % 0 % (0-6); Hematocrit 49 % (35-47); Lymphocyte % 4.1 % (25-47); Mean Corpuscular HGB Conc 33 g/dl (31-36); Mean Corpuscular Hemoglobin 29 pg (27-31); Mean Corpuscular Volume 89 fL (80-97); Nucleated Red Blood Cells % 0.1; Platelet Count 242 10^3/ul (150-450); Red Blood Count 5.48 10^6/ul (4.0-5.4); Red Cell Distribution Width 15 % (10.5-15); White Blood Count 15.9 10^3/ul (3.5-10.8)
[2018-03-30 06:18] LABS: EGFR Non-African American 80.6 (>60)
[2018-03-30] MEDS: Tiotropium CAP.INH* CAP.INH/18 MCG (USE ORDER SET !) INH SCH (07:22)
[2018-03-30] MEDS: Mometasone/Formoter 100/5 MDI INH SCH ×2 (07:22→20:11)
[2018-03-30] MEDS: methylPREDNISolone SOD 40 MG* 1 ML VIAL IV SCH ×2 (08:43→20:32)
[2018-03-30] MEDS: Hydrochlorothiazide TAB* 25 MG PO SCH (08:43)
[2018-03-30] MEDS: Lisinopril TAB* 10 MG PO SCH (08:43)
[2018-03-30] MEDS: Diltiazem CD CAP* 120 MG PO SCH (08:44)
[2018-03-30] MEDS: guaiFENesin ER TAB 600 MG PO SCH ×2 (10:45→20:32)
[2018-03-30] MEDS: Cetirizine* 10 MG TAB PO SCH (10:46)
[2018-03-30] MEDS ORDERED: Benzonatate CAP* 100 MG PO PRN (13:23)
--- NOTE | 2018-03-30 15:17 | PN ---
Subjective Date of Service: 03/30/18 Interval History: Patient states that her SOB is improved. Patient denies CP, N/V, abdominal pain , F/C, Dysuria, or other pain. Patient had an episode of fecal incontinence due to coughing. Also has bleeding hemorrhoid. Does not know if she ever had follow up CT examination for pulmonary nodules last year with her movie critic. Family History: Unchanged from Admission Social History: Unchanged from Admission Past Medical History: Unchanged from Admission Objective Active Medications: Acetaminophen (Tylenol Tab*) 650 mg PO Q4H PRN PRN Reason: FEVER/PAIN Albuterol (Ventolin 2.5 Mg/3 Ml Neb.Merari*) 2.5 mg INH Q2H PRN PRN Reason: SOB/WHEEZING Albuterol/Ipratropium (Duoneb (Albuterol 2.5 Mg/Ipratropium 0.5 Mg)) 1 neb INH [id number] AWAKE [facility] Last Admin: 03/30/18 14:26 Dose: 1 neb Benzonatate (Tessalon Cap*) 100 mg PO BID PRN PRN Reason: COUGH Cetirizine HCl (Zyrtec*) 10 mg PO DAILY [facility] PRN Reason: Protocol Last Admin: 03/30/18 10:46 Dose: 10 mg Device (Nicotine Mouth Piece*) 1 each INH .USE WITH NICOTROL PRN PRN Reason: CRAVING Last Admin: 03/29/18 09:31 Dose: 1 each Diltiazem HCl (Cardizem Cd Cap*) 120 mg PO DAILY [facility] Last Admin: 03/30/18 08:44 Dose: 120 mg Guaifenesin (Mucinex*) 1,200 mg PO BID [facility] Last Admin: 03/30/18 10:45 Dose: 1,200 mg Heparin Sodium (Porcine) (Heparin Vial(*)) 5,000 units SUBCUT Q8HR [facility] Last Admin: 03/30/18 05:19 Dose: 5,000 units Hydrochlorothiazide (Hydrodiuril Tab*) 12.5 mg PO DAILY [facility] Last Admin: 03/30/18 08:43 Dose: 12.5 mg Azithromycin 500 mg/ Sodium (Chloride) 250 mls @ 250 mls/hr IVPB Q24HR@1530 [facility] Last Admin: 03/29/18 15:10 Dose: 250 mls/hr Lactobacillus Rhamnosus (Lactobacillus Acidophilus*) 1 tab PO DAILY [facility] Lisinopril (Prinivil Tab*) 20 mg PO DAILY [facility] Last Admin: 03/30/18 08:43 Dose: 20 mg Methylprednisolone Sodium Succinate (Solu-Medrol 40 Mg) 40 mg IV Q12H [facility] Last Admin: 03/30/18 08:43 Dose: 40 mg Mometasone Furoate/Formoterol Fumar (Dulera 100/5 Mdi*) 2 puff INH BID [facility] Last Admin: 03/30/18 07:22 Dose: 2 puff Nicotine (Nicotine Inhaler*) 10 mg INH Q2H PRN PRN Reason: CRAVING Last Admin: 03/29/18 09:31 Dose: 10 mg Omeprazole (Prilosec Cap*) 20 mg PO DAILY@0600 [facility] Last Admin: 03/30/18 05:19 Dose: 20 mg Tiotropium [place] (Spiriva Cap.Inh*) 1 cap INH DAILY [facility] Last Admin: 03/30/18 07:22 Dose: 1 cap Tramadol HCl (Ultram*) 50 mg PO Q4HR PRN PRN Reason: PAIN Last Admin: 03/29/18 09:28 Dose: 50 mg Witch Johanna (Tucks*) 1 pad TOPICAL DAILY [facility] Vital Signs - 8 hr 03/30/18 03/30/18 07:23 14:26 Pulse Rate 85 94 Respiratory 18 20 Rate O2 Sat by Pulse 98 97 Oximetry Oxygen Devices in Use Now: Nasal Cannula Appearance: Patient is a 58yo female who appears stated age and is sitting in the bed in [facility]. Eyes: No Scleral Icterus, PERRLA Ears/Nose/Mouth/Throat: NL Teeth, Lips, Gums, Clear Oropharnyx, Mucous Membranes Moist Neck: NL Appearance and Movements; NL JVP, Trachea Midline Respiratory: Symmetrical Chest Expansion and Respiratory Effort, - - Improved Wheezes and Rhonchi throughout. Cardiovascular: NL Sounds; No Murmurs; No JVD, RRR, No Edema Abdominal: NL Sounds; No Tenderness; No Distention, No Hepatosplenomegaly Lymphatic: No Cervical Adenopathy Extremities: No Edema, No Clubbing, Cyanosis Skin: No Rash or Ulcers, No Nodules or Sclerosis Neurological: Alert and Oriented x 3, NL Sensation, NL Gait, NL Muscle Strength and Tone, - - CN II-XII intact. Result Diagrams: 03/30/18 05:29 03/30/18 05:29 Assess/Plan/Problems-Billing Assessment: Patient is a 58yo female with a PMH for Pancreatic Cancer S/P resection, COPD, HTN, BRITNEY who is here with a COPD exacerbation with significantly increased O2 demand. - Patient Problems (1) Acute and chronic respiratory failure Current Visit: No Status: Acute Code(s): J96.20 - ACUTE AND CHR RESP FAILURE , UNSP W HYPOXIA OR HYPERCAPNIA SNOMED Code(s): 99264412 Comment: Currently on 5L O2 NC. Likely due to COPD exacerbation. Does not wear O2 at home. Follows with movie critic in [place]. Unknown results of 6 minute walk or PFTs. Follow up outpatient for appreopriateness of continuous O2 therapy. (2) COPD exacerbation Current Visit: No Status: Acute Code(s): J44.1 - CHRONIC OBSTRUCTIVE PULMONARY DISEASE W (ACUTE) EXACERBATION SNOMED Code(s): 519484418704982 Comment: Likely secondary to bronchitis with atopic component due to seasonal allergies. Started on Zyrtec. No infiltrate on CXR. Failed outpatient therapy. Procalcitonin negative. Continue Zithromax, Steroids, Scheduled inhalers and nebulizers, ISB and Flutter valve, guaifenisen. Ceftriaxone D/C'd. (3) HTN (hypertension) Current Visit: No Status: Acute Code(s): I10 - ESSENTIAL (PRIMARY) HYPERTENSION SNOMED Code(s): 20659963 Comment: Continue Lisinopril, HCTZ, and Diltiazem (4) Mediastinal adenopathy Current Visit: No Status: Acute Code(s): R59.0 - LOCALIZED ENLARGED LYMPH NODES SNOMED Code(s): 99934076 Comment: CTA chest in 11/2016 showed patchy bilateral upper lobe infiltrates suggestive of pneumonia, but also shows small bilateral pulmonary nodules and enlarged mediastinal or hilar lymph nodes. Differential included malignancy (patient is a smoker, has h/o pancreatic CA, mild esophageal thickening on CT), sarcoidosis. Saw Pulmonology at that time opted for outpatient follow up with her movie critic, unknown if this was followed up upon. Will attempt to get records from [place] for possible CT results. Would recommend repeat CT of chest this hospitalization if there was no follow up of this issue. (5) Pancreatic cancer Current Visit: Yes Status: Acute Comment: S/P resection with Splenectomy. (6) Diarrhea Current Visit: Yes Status: Acute Code(s): R19.7 - DIARRHEA, UNSPECIFIED SNOMED Code(s): 96543587 Comment: Likely antibiotic related, not likely C. diff. (7) DVT prophylaxis Current Visit: No Status: Acute Code(s): ZGL0068 - SNOMED Code(s): 978664309 Comment: SQ heparin. (8) Full code status Current Visit: No Status: Acute Code(s): Z78.9 - OTHER SPECIFIED HEALTH STATUS SNOMED Code(s): 323067087 Status and Disposition: Admitted Inpatient.
[2018-03-30] MEDS: Lactobacillus Acidophilus* 1 TAB PO SCH (15:37)
[2018-03-30] MEDS: Witch Hazel PAD* JAR TOPICAL SCH (15:38)
[2018-03-30] MEDS: Azithromycin IV(*) 500 MG in NS 0.9% 250 ML* 250 ML IVPB SCH (15:49)
[2018-03-30] MEDS: Nicotine Inhaler* 10 MG AMP INH PRN (20:29)
[2018-03-30] MEDS: traMADol TAB* 50 MG PO PRN (20:31)
[2018-03-31] MEDS: Albuterol/Ipratropium NEB.SOL* Albuterol 2.5 MG/Ipratropium 0.5 MG 3 ML INH SCH ×4 (01:11→19:58)
[2018-03-31] MEDS: Omeprazole CAP* 20 MG PO SCH (07:00)
[2018-03-31] MEDS: Heparin VIAL(*) 5000 UNITS/ML VIAL (FIVE THOUSAND) SUBCUT SCH ×3 (07:00→21:20)
[2018-03-31] MEDS: Mometasone/Formoter 100/5 MDI INH SCH ×2 (07:29→19:59)
[2018-03-31] MEDS: Tiotropium CAP.INH* CAP.INH/18 MCG (USE ORDER SET !) INH SCH (07:29)
--- NOTE | 2018-03-31 08:24 | PN ---
Subjective Date of Service: 03/31/18 Interval History: Ms. Carpenter reports feeling much better than on arrival though she continues to feel congested. She is currently on 4-6L NC. She denies chest pain, nausea, or abdominal pain and is tolerating oral intake well. Family History: Unchanged from Admission Social History: Unchanged from Admission Past Medical History: Unchanged from Admission Objective Active Medications: Acetaminophen (Tylenol Tab*) 650 mg PO Q4H PRN Albuterol (Ventolin 2.5 Mg/3 Ml Neb.Merari*) 2.5 mg INH Q2H PRN Albuterol/Ipratropium (Duoneb (Albuterol 2.5 Mg/Ipratropium 0.5 Mg)) 1 neb INH [id number] AWAKE [facility] Benzonatate (Tessalon Cap*) 100 mg PO BID PRN Cetirizine HCl (Zyrtec*) 10 mg PO DAILY [facility] Device (Nicotine Mouth Piece*) 1 each INH .USE WITH NICOTROL PRN Diltiazem HCl (Cardizem Cd Cap*) 120 mg PO DAILY [facility] Guaifenesin (Mucinex*) 1,200 mg PO BID [facility] Heparin Sodium (Porcine) (Heparin Vial(*)) 5,000 units SUBCUT Q8HR [facility] Hydrochlorothiazide (Hydrodiuril Tab*) 12.5 mg PO DAILY [facility] Azithromycin 500 mg/ Sodium (Chloride) 250 mls @ 250 mls/hr IVPB Q24HR@1530 [facility] Lactobacillus Rhamnosus (Lactobacillus Acidophilus*) 1 tab PO DAILY [facility] Lisinopril (Prinivil Tab*) 20 mg PO DAILY [facility] Methylprednisolone Sodium Succinate (Solu-Medrol 40 Mg) 40 mg IV Q12H [facility] Mometasone Furoate/Formoterol Fumar (Dulera 100/5 Mdi*) 2 puff INH BID [facility] Nicotine (Nicotine Inhaler*) 10 mg INH Q2H PRN Omeprazole (Prilosec Cap*) 20 mg PO DAILY@0600 [facility] Tiotropium [place] (Spiriva Cap.Inh*) 1 cap INH DAILY [facility] Tramadol HCl (Ultram*) 50 mg PO Q4HR PRN Witch Johanna (Tucks*) 1 pad TOPICAL DAILY [facility] Vital Signs: Temp Pulse Resp BP Pulse Ox 97.9 F 88 22 144/84 97 03/31/18 03:06 03/31/18 07:39 03/31/18 07:39 03/31/18 07:39 03/31/18 07:39 Oxygen Devices in Use Now: Nasal Cannula Appearance: Female sitting up in bed in [place] Eyes: No Scleral Icterus Ears/Nose/Mouth/Throat: Mucous Membranes Moist Neck: Trachea Midline Respiratory: Symmetrical Chest Expansion and Respiratory Effort, - - Minimal wheezing Cardiovascular: NL Sounds; No Murmurs; No JVD, No Edema Abdominal: NL Sounds; No Tenderness; No Distention Lymphatic: No Cervical Adenopathy Extremities: No Edema Skin: No Rash or Ulcers Neurological: Alert and Oriented x 3, NL Muscle Strength and Tone Nutrition: Taking PO's Result Diagrams: 03/31/18 08:20 03/31/18 08:20 Assess/Plan/Problems-Billing Assessment: Ms. Carpenter is a 58yo female with a PMH for Pancreatic Cancer S/P resection, COPD , HTN, BRITNEY who is here with a COPD exacerbation with significantly increased O2 demand. - Patient Problems (1) Acute and chronic respiratory failure Comment: - Currently on 4-6L O2 NC with ambulation and rest. - Due to COPD exacerbation. 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 Reports exposure to multiple allergens while cleaning out a camper at home. - Did not wear O2 at home. Follows with body shop floorperson in [place]. (2) COPD exacerbation Comment: - Continue azithromycin, steroids, scheduled inhalers, nebulizers, ISB and Flutter valve, guaifenisen. (3) Mediastinal adenopathy Comment: - CTA chest in 11/2016 showed patchy bilateral upper lobe infiltrates suggestive of pneumonia, but also shows small bilateral pulmonary nodules and enlarged mediastinal or hilar lymph nodes. - Differential included malignancy (patient is a smoker, has h/o pancreatic CA, mild esophageal thickening on CT), sarcoidosis. Saw Pulmonology at that time opted for outpatient follow up with her body shop floorperson, unknown if this was followed up upon. - Would recommend repeat CT of chest this hospitalization if there was no follow up of this issue. Requesting records from [place] now. (4) HTN (hypertension) Comment: - SBP 140-150s. - Continue Lisinopril, HCTZ, and Diltiazem (5) Pancreatic cancer Comment: S/P resection with Splenectomy. (6) DVT prophylaxis Comment: SQ heparin. (7) Full code status Comment: Status and Disposition: Admitted Inpatient. Anticipate discharge to home with oxygen when medically stable.
[2018-03-31 08:33] LABS: ABS Basophils 0.1 10^3/ul (0-0.2); ABS Eosinophils 0 10^3/ul (0-0.6); ABS Lymphocytes 0.8 10^3/ul (1.0-4.8); ABS Monocytes 0.7 10^3/ul (0-0.8); ABS Neutrophils 15.4 10^3/ul (1.5-7.7); ABS Nucleated RBC 0 10^3/ul; Eosinophil % 0 % (0-6); Hematocrit 50 % (35-47); Hemoglobin 16.2 g/dl (12.0-16.0); Lymphocyte % 4.5 % (25-47); Mean Corpuscular HGB Conc 32 g/dl (31-36); Mean Corpuscular Hemoglobin 29 pg (27-31); Mean Corpuscular Volume 89 fL (80-97); Mean Platelet Volume 10.6 um3 (7.4-10.4); Nucleated Red Blood Cells % 0; Platelet Count 251 10^3/ul (150-450); Red Blood Count 5.62 10^6/ul (4.0-5.4); Red Cell Distribution Width 15 % (10.5-15); White Blood Count 16.9 10^3/ul (3.5-10.8)
[2018-03-31] MEDS: Diltiazem CD CAP* 120 MG PO SCH (08:38)
[2018-03-31] MEDS: guaiFENesin ER TAB 600 MG PO SCH ×2 (08:38→21:20)
[2018-03-31] MEDS: Hydrochlorothiazide TAB* 25 MG PO SCH (08:40)
[2018-03-31] MEDS: Lisinopril TAB* 10 MG PO SCH (08:40)
[2018-03-31] MEDS: methylPREDNISolone SOD 40 MG* 1 ML VIAL IV SCH ×2 (08:41→21:19)
[2018-03-31] MEDS: Lactobacillus Acidophilus* 1 TAB PO SCH (08:41)
[2018-03-31] MEDS: Witch Hazel PAD* JAR TOPICAL SCH (08:41)
[2018-03-31] MEDS: Cetirizine* 10 MG TAB PO SCH (08:41)
[2018-03-31 08:51] LABS: EGFR Non-African American 80.6 (>60)
[2018-03-31] MEDS: Azithromycin IV(*) 500 MG in NS 0.9% 250 ML* 250 ML IVPB SCH (15:46)
[2018-03-31] MEDS: Nicotine Inhaler* 10 MG AMP INH PRN (21:19)
[2018-04-01] MEDS: Albuterol/Ipratropium NEB.SOL* Albuterol 2.5 MG/Ipratropium 0.5 MG 3 ML INH SCH ×3 (01:48→13:35)
[2018-04-01] MEDS: traMADol TAB* 50 MG PO PRN (03:16)
[2018-04-01] MEDS: Tiotropium CAP.INH* CAP.INH/18 MCG (USE ORDER SET !) INH SCH ×2 (06:12→07:47)
[2018-04-01] MEDS: Mometasone/Formoter 100/5 MDI INH SCH ×2 (06:12→07:47)
[2018-04-01] MEDS: Heparin VIAL(*) 5000 UNITS/ML VIAL (FIVE THOUSAND) SUBCUT SCH ×2 (06:28→13:24)
[2018-04-01] MEDS: Omeprazole CAP* 20 MG PO SCH (06:28)
--- NOTE | 2018-04-01 07:44 | PN ---
Subjective Date of Service: 04/01/18 Interval History: Ms. Carpenter reports feeling ok today. She denies significant SOB or FRIEDMAN. She is ambulating with oxygen at 5L with no complaint or hypoxia. Family History: Unchanged from Admission Social History: Unchanged from Admission Past Medical History: Unchanged from Admission Objective Active Medications: Acetaminophen (Tylenol Tab*) 650 mg PO Q4H PRN Albuterol (Ventolin 2.5 Mg/3 Ml Neb.Merari*) 2.5 mg INH Q2H PRN Albuterol/Ipratropium (Duoneb (Albuterol 2.5 Mg/Ipratropium 0.5 Mg)) 1 neb INH [id number] AWAKE [facility] Benzonatate (Tessalon Cap*) 100 mg PO BID PRN Cetirizine HCl (Zyrtec*) 10 mg PO DAILY [facility] Device (Nicotine Mouth Piece*) 1 each INH .USE WITH NICOTROL PRN Diltiazem HCl (Cardizem Cd Cap*) 120 mg PO DAILY [facility] Guaifenesin (Mucinex*) 1,200 mg PO BID [facility] Heparin Sodium (Porcine) (Heparin Vial(*)) 5,000 units SUBCUT Q8HR [facility] Hydrochlorothiazide (Hydrodiuril Tab*) 12.5 mg PO DAILY [facility] Azithromycin 500 mg/ Sodium (Chloride) 250 mls @ 250 mls/hr IVPB Q24HR@1530 [facility] Lactobacillus Rhamnosus (Lactobacillus Acidophilus*) 1 tab PO DAILY [facility] Lisinopril (Prinivil Tab*) 20 mg PO DAILY [facility] Methylprednisolone Sodium Succinate (Solu-Medrol 40 Mg) 40 mg IV Q12H [facility] Mometasone Furoate/Formoterol Fumar (Dulera 100/5 Mdi*) 2 puff INH BID [facility] Nicotine (Nicotine Inhaler*) 10 mg INH Q2H PRN Omeprazole (Prilosec Cap*) 20 mg PO DAILY@0600 [facility] Tiotropium [place] (Spiriva Cap.Inh*) 1 cap INH DAILY [facility] Tramadol HCl (Ultram*) 50 mg PO Q4HR PRN Witch Johanna (Tucks*) 1 pad TOPICAL DAILY [facility] Vital Signs: Temp Pulse Resp BP Pulse Ox 97.8 F 86 20 149/86 98 04/01/18 04:11 04/01/18 06:17 04/01/18 06:29 04/01/18 04:11 04/01/18 06:17 Oxygen Devices in Use Now: Nasal Cannula Appearance: Female sitting up on edge of bed in NAD Eyes: No Scleral Icterus Ears/Nose/Mouth/Throat: Mucous Membranes Moist Neck: Trachea Midline Respiratory: Symmetrical Chest Expansion and Respiratory Effort, Clear to Auscultation Cardiovascular: NL Sounds; No Murmurs; No JVD, No Edema Abdominal: NL Sounds; No Tenderness; No Distention Lymphatic: No Cervical Adenopathy Extremities: No Edema Skin: No Rash or Ulcers Neurological: Alert and Oriented x 3, NL Muscle Strength and Tone Nutrition: Taking PO's Result Diagrams: 03/31/18 08:20 03/31/18 08:20 Assess/Plan/Problems-Billing Assessment: Ms. Carpenter is a 58yo female with a PMH for Pancreatic Cancer S/P resection, COPD , HTN, BRITNEY who is here with a COPD exacerbation with significantly increased O2 demand. - Patient Problems (1) Acute and chronic respiratory failure Comment: - Slow improvement - Currently on 5L O2 NC with ambulation and rest. - Due to COPD exacerbation. 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 Reports exposure to multiple allergens while cleaning out a camper at home. - Did not wear O2 at home. Follows with completion manager in [place]. (2) COPD exacerbation Comment: - Continue azithromycin, steroids, scheduled inhalers, nebulizers, ISB and Flutter valve, guaifenisen. (3) Mediastinal adenopathy Comment: - CTA chest in 11/2016 showed patchy bilateral upper lobe infiltrates suggestive of pneumonia, but also shows small bilateral pulmonary nodules and enlarged mediastinal or hilar lymph nodes. - Differential included malignancy (patient is a smoker, has h/o pancreatic CA, mild esophageal thickening on CT), sarcoidosis. Saw Pulmonology at that time opted for outpatient follow up with her completion manager, unknown if this was followed up upon. - Patient has follow up appt at [place] with pulmonology 04/09. (4) HTN (hypertension) Comment: - SBP 140-150s. - Continue Lisinopril, HCTZ, and Diltiazem (5) Pancreatic cancer Comment: S/P resection with Splenectomy. (6) DVT prophylaxis Comment: SQ heparin. (7) Full code status Comment: Status and Disposition: Admitted Inpatient. Discharge to home.
--- NOTE | 2018-04-01 07:46 | ED ---
Bonita Guadarrama Tenzin, scribed for Hector Quiroz MD on 03/28/18 at 1002 . Shortness of Breath - HPI Summary HPI Summary: Pt is a 58 years old F presenting to the ED with complaints of shortness of breath. She reports that her initial symptoms started one week and half ago as an allergy reaction that gradually exacerbated and cause her to have bronchitis. She complains of coughs and has difficulty breathing in the evening. she also complains of chest pain, anxiety and panic attack. she has a CPAP machine but does not have O2 at home. She experience chills last weekend before [facility]. She notes that she was prescribed with Prednisone and Augmentin but it didn't help relieve her pain and complains that it got worse. Pt believes that she has PNA. - History of Current Complaint Chief Complaint: EDShortnessOfBreath Time Seen by Provider: 03/28/18 08:26 Hx Obtained From: Patient Onset/Duration: Lasting Days Current Severity: Moderate Associated Signs & Symptoms: Cough (Productive), Chest Pain w/Cough, Chills - Allergy/Home Medications Allergies/Adverse Reactions: Allergies Allergy/AdvReac Type Severity Reaction Status Date / Time MS Bupropion Allergy Intermediate Hives Verified 03/28/18 08:13 [From Wellbutrin] MS Oxycodone [From Percocet] Allergy Intermediate Swelling Verified 03/28/18 08: 13 Of Face,Lips,& Throat Home Medications: Home Medications dilTIAZem HCl [Cartia Xt] 120 mg PO DAILY 03/28/18 [History Confirmed 03/28/18] predniSONE TAB* [Deltasone TAB*] 20 mg PO DAILY 03/28/18 [History Confirmed 11/14] PMH/Surg Hx/FS Hx/Imm Hx Cardiovascular History: Reports: Hx Hypertension Respiratory History: Reports: Hx Chronic Obstructive Pulmonary Disease (COPD) GI History: Reports: Other GI Disorders - pancreatic ca Sensory History: Reports: Hx Contacts or Glasses Opthamlomology History: Reports: Hx Contacts or Glasses Psychiatric History: Reports: Hx Anxiety, Hx Depression - Cancer History Cancer Type, Location and Year: pancreatic ca 2005 - Surgical History Surgery Procedure, Year, and Place: partial pancreatectomy; partial hysterectomy ; spleenectomy; cholecystectomy Infectious Disease History: No Infectious Disease History: Denies: Hx Clostridium Difficile, Hx Hepatitis, Hx Human Immunodeficiency Virus (HIV), Traveled Outside the [place] in Last 30 Days - Family History Known Family History: Positive: Hypertension - Social History Alcohol Use: Rare Substance Use Type: Reports: None Smoking Status (MU): Former Smoker Review of Systems Positive: Chills. Negative: Fever Negative: Erythema Negative: Sore Throat Positive: Chest Pain Positive: Shortness Of Breath, Cough Negative: Abdominal Pain, Vomiting, Nausea Negative: dysuria, hematuria Negative: Myalgia, Edema Negative: Rash All Other Systems Reviewed And Are Negative: Yes Physical Exam - Summary Physical Exam Summary: Constitutional: Well-developed, Well-nourished, Alert. (-) Distressed Skin: Warm, Dry HENT: Normocephalic; Atraumatic Eyes: Conjunctiva normal Neck: Musculoskeletal ROM normal neck. (-) JVD, (-) Stridor, (-) Tracheal deviation Cardio: Rhythm regular, rate normal, Heart sounds normal; Intact distal pulses; The pedal pulses are 2+ and symmetric. Radial pulses are 2+ and symmetric. (-) Murmur Pulmonary/Chest wall: scattered Wheezes and bronchi. Pt is on 92% O2 on 3L currently. Abd: Soft, (-) Tenderness, (-) Distension, (-) Guarding, (-) Rebound Musculoskeletal: (-) Edema Lymph: (-) Cervical adenopathy Neuro: Alert, Oriented x3 Psych: Mood and affect Normal Triage Information Reviewed: Yes Vital Signs On Initial Exam: Initial Vitals Temp Pulse Resp BP Pulse Ox 97.6 F 115 20 142/109 81 03/28/18 08:07 03/28/18 08:07 03/28/18 08:07 03/28/18 08:07 03/28/18 08:07 Vital Signs Reviewed: Yes Diagnostics - Vital Signs Vital Signs Temp Pulse Resp BP Pulse Ox 03/28/18 08:33 98 14 98 03/28/18 08:24 97 128/103 93 03/28/18 08:18 113 170/122 83 03/28/18 08:07 97.6 F 115 20 142/109 81 - Laboratory Lab Results: Lab Results 03/28/18 Range/Units 09:11 Sodium 138 L (139-145) mmol/L Potassium 3.6 (3.5-5.0) mmol/L Chloride 101 (101-111) mmol/L Carbon Dioxide 28 (22-32) mmol/L Anion Gap 9 (2-11) mmol/L BUN Pending Creatinine Pending Est GFR ( Amer) Pending Est GFR (Non-Af Amer) Pending BUN/Creatinine Ratio Pending Glucose Pending Calcium 9.6 (8.6-10.3) mg/dL Total Bilirubin 0.40 (0.2-1.0) mg/dL AST Pending ALT Pending Alkaline Phosphatase Pending Troponin I Pending Total Protein Pending Albumin 4.1 (3.2-5.2) g/dL Globulin Pending Albumin/Globulin Ratio Pending Result Diagrams: 03/28/18 09:35 03/28/18 09:11 Lab Statement: Any lab studies that have been ordered have been reviewed, and results considered in the medical decision making process. - Radiology CXR Radiology Interpretation Completed By: Radiologist - IMPRESSION: Stigmata of obstructive lung disease. No acute pulmonary or cardiac process evident. Dr. Quiroz reviewed the report. - EKG 8:38 Cardiac Rate: NL - 99 BPM EKG Rhythm: Sinus Rhythm EKG Interpretation: No STEMI Course/Dx - Course Course Of Treatment: Pt is a 58 years old F presenting to the ED with complaints of shortness of breath. She is currently on supplemented O2 (92% on 3L) at the ED. She had a failing outpatient treatment with steroids and needs admission. - Diagnoses Provider Diagnoses: Hypoxia, COPD exacerbation Discharge - Sign-Out/Discharge Documenting (check all that apply): Discharge/Admit/Transfer - Discharge Plan Condition: Fair Disposition: ADMITTED TO [facility] Referrals: Stevenson Carmichael MD [Primary Care Provider] - The documentation as recorded by the Bonita cabrera Tenzin accurately reflects the service I personally performed and the decisions made by , Hector Quiroz MD.
[2018-04-01 07:48] VITALS: BP 156/86
[2018-04-01] MEDS: Hydrochlorothiazide TAB* 25 MG PO SCH (08:30)
[2018-04-01] MEDS: Lactobacillus Acidophilus* 1 TAB PO SCH (08:30)
[2018-04-01] MEDS: Cetirizine* 10 MG TAB PO SCH (08:31)
[2018-04-01] MEDS: Lisinopril TAB* 10 MG PO SCH (08:31)
[2018-04-01] MEDS: Diltiazem CD CAP* 120 MG PO SCH (08:31)
[2018-04-01] MEDS: guaiFENesin ER TAB 600 MG PO SCH (08:31)
[2018-04-01] MEDS: methylPREDNISolone SOD 40 MG* 1 ML VIAL IV SCH (08:32)
[2018-04-01] MEDS: Witch Hazel PAD* JAR TOPICAL SCH (08:32)
--- NOTE | 2018-04-01 22:26 | DS ---
[facility] MEDICINE DISCHARGE SUMMARY: DATE OF ADMISSION: 03/28/18 DATE OF DISCHARGE: 04/01/18 ATTENDING PROVIDER: Buffy Hancock MD * (DICTATED BY CHAVA NGUYEN NP) PRIMARY DIAGNOSIS: Chronic obstructive pulmonary disease exacerbation. SECONDARY DIAGNOSES: 1. Hypertension. 2. Chronic obstructive pulmonary disease. 3. History of pancreatic cancer in 2005. 4. Sleep apnea, on CPAP. PAST SURGICAL HISTORY: 1. Pancreatectomy and splenectomy for a pancreatic cancer. 2. Cholecystectomy. 3. Hysterectomy. MEDICATIONS AT THE TIME OF DISCHARGE: 1. Tramadol 50 mg p.o. q.4 hours p.r.n. 2. Diltiazem XT 120 mg p.o. daily. 3. Hydrochlorothiazide 12.5 mg p.o. daily. 4. Tiotropium 1 cap inhaled daily. 5. Omeprazole 20 mg p.o. daily. 6. Lisinopril 20 mg p.o. daily. 7. Fluticasone with salmeterol 100/50 one puff inhaled b.i.d. 8. Albuterol 1 to 2 puffs inhaled q.4 hours p.r.n. 9. Prednisone 10 mg tablet starting with 40 mg via taper. 10. Guaifenesin ER 1200 mg p.o. b.i.d. p.r.n. 11. Chantix starter pack. 12. Cetirizine 10 mg p.o. daily. 13. Benzonatate 100 mg p.o. b.i.d. p.r.n. HOSPITAL COURSE: Ms. Carpenter is a 58-year-old female with a past medical history of COPD and continued smoking, who presented to the hospital on 03/28/18 with concern for cough and shortness of breath. Please see the dictated H and P from Latonya Stewart for complete details. In brief, the patient stated that she had had progressive shortness of breath for the week prior to admission. She also reported some allergy type symptoms with rhinorrhea, nasal congestion, sinus pressure and mild cough. She was seen on Saturday prior to admission at [facility] where she was placed on Augmentin and prednisone. She states that despite this treatment, she continued to feel worse and more short of breath and therefore presented to the emergency room for evaluation. In the emergency room, she had an O2 saturation on room air of 81%. She was afebrile. Chest x-ray showed COPD only, but no acute pulmonary or cardiac process. Her labs showed she had a white blood cell count of 16.7, but this is in the setting of prednisone use. Ms. Carpenter was admitted to the hospital. She was treated with oxygen, solumedrol , and ceftriaxone with azithromycin. With this, Ms. Carpenter is doing better today. She remains on 5 L oxygen at rest and with ambulation; however, she is not symptomatic or dyspneic with exertion and therefore is medically stable for discharge to home to follow up with her geothermal technician, who she will see on 04/09 and with her primary care physician, Dr. Carmichael in the next 4 to 7 days. I will note that Ms. Carpenter did have some lymphadenopathy noted on a CT of the chest from 11/27/16. Our hope at that point had been that she would follow up with Pulmonology and have this evaluated. It appears that she did have a CT scan repeated at [place] where her geothermal technician is in January 2017, but I do not have that available for comparison. I note it here in hopes that when the patient sees her geothermal technician on 04/09/18 that this will be reviewed again given the patient's history of smoking and pancreatic cancer. Ms. Carpenter is medically stable for discharge to home with 5 L of oxygen to complete course of treatment for COPD exacerbation. DISPOSITION: To home. DIET: Low salt. ACTIVITY: As tolerated. FOLLOWUP PLANS: 1. Please follow up with Dr. Carmichael in the next 4 to 7 days. 2. Please follow up with the geothermal technician in [place] on 04/09/18 for previously scheduled appointment. TIME SPENT: Approximately 60 minutes were spent on the discharge of this patient, more than half the time was spent with the patient at the bedside reviewing the events leading up to and during this hospitalization, performing the physical examination and reviewing the plan of care. CHAVA NGUYEN NP [id number]/[facility] #: [id number] KENISHA
== END 2018-04-01 14:20 | disposition home or self-care (01) | DRG 140 ==
LOC: ED 08:06 → MED 10:19
PROVIDERS: ADMIT Internal Medicine; ATTEND Internal Medicine
DX: J44.1 Chronic obstructive pulmonary disease with (acute) exacerbation (principal); J96.21 Acute and chronic respiratory failure with hypoxia; F41.9 Anxiety disorder, unspecified; I10 Essential (primary) hypertension; F32.9 Major depressive disorder, single episode, unspecified; J32.0 Chronic maxillary sinusitis; J32.1 Chronic frontal sinusitis; F17.210 Nicotine dependence, cigarettes, uncomplicated; K64.9 Unspecified hemorrhoids; R15.9 Full incontinence of feces; J30.2 Other seasonal allergic rhinitis; G47.33 Obstructive sleep apnea (adult) (pediatric); R91.8 Other nonspecific abnormal finding of lung field; R19.7 Diarrhea, unspecified; R59.0 Localized enlarged lymph nodes; Z99.81 Dependence on supplemental oxygen; Z88.5 Allergy status to narcotic agent; Z88.8 Allergy status to other drugs, medicaments and biological substances; Z85.07 Personal history of malignant neoplasm of pancreas; Z90.411 Acquired partial absence of pancreas; Z90.710 Acquired absence of both cervix and uterus; Z90.49 Acquired absence of other specified parts of digestive tract; Z90.81 Acquired absence of spleen; Z82.49 Family history of ischemic heart disease and other diseases of the circulatory system; Z72.89 Other problems related to lifestyle; Z83.3 Family history of diabetes mellitus; Z80.8 Family history of malignant neoplasm of other organs or systems; Z90.711 Acquired absence of uterus with remaining cervical stump
CPT/HCPCS: 36415; 71046; 80048; 80053; 83036; 83605; 83735; 84145; 84484; 85025; 87040; 93005; 94640; 94660; 99284; A9270-GY; J0456; J0696; J1644; J2920; J2930

== ENCOUNTER 2018-12-15 08:42 | Inpatient (IN) | payer BC ==
[2018-12-15] MEDS ORDERED: Albuterol/Ipratropium NEB.SOL* Albuterol 2.5 MG/Ipratropium 0.5 MG 3 ML INH ONE ×2 (09:16→10:45)
[2018-12-15] MEDS ORDERED: Dexamethasone IV* 4 MG/ML 1 ML (4 MG) IV SLOW PU ONE (09:16)
[2018-12-15] MEDS ORDERED: Magnesium Sulfate 2 GM IV* 2 GM/50 ML BAG IVPB ONE (09:16)
[2018-12-15 09:43] LABS: Influenza A Molecular NEGATIVE (Negative); Influenza B Molecular NEGATIVE (Negative)
[2018-12-15 09:49] LABS: Hematocrit 45 % (35-47); Hemoglobin 14.1 g/dl (12.0-16.0); Mean Corpuscular HGB Conc 31 g/dl (31-36); Mean Corpuscular Hemoglobin 28 pg (27-31); Mean Corpuscular Volume 90 fL (80-97); Mean Platelet Volume 10.8 fL (7.4-10.4); Platelet Count 292 10^3/ul (150-450); Red Blood Count 4.99 10^6/ul (4.00-5.40); Red Cell Distribution Width 14 % (10.5-15); White Blood Count 19.3 10^3/ul (3.5-10.8)
[2018-12-15 10:03] LABS: Troponin I 0.03 ng/mL (<0.04)
[2018-12-15 10:06] LABS: Albumin 3.7 g/dL (3.2-5.2); Albumin/Globulin Ratio 1.1 (1-3); BUN/Creatinine Ratio 32.7 (8-20); C Reactive Protein 144.58 mg/L (<8.01); Calcium 9.9 mg/dL (8.6-10.3); EGFR Non-African American 129.7 (>60); Globulin 3.4 g/dL (2-4); Potassium 4.2 mmol/L (3.5-5.0); Total Bilirubin 0.4 mg/dL (0.2-1.0); Total Protein 7.1 g/dL (6.4-8.9)
[2018-12-15 10:07] LABS: HCG Pregnancy 2.38 mIU/mL
[2018-12-15 10:17] LABS: ABS Basophils 0.1 10^3/ul (0-0.2); ABS Eosinophils 0 10^3/ul (0-0.6); ABS Lymphocytes 1.6 10^3/ul (1.0-4.8); ABS Monocytes 1.8 10^3/ul (0-0.8); ABS Neutrophils 15.9 10^3/ul (1.5-7.7); ABS Nucleated RBC 0 10^3/ul; Eosinophil % 0.2 %; Lymphocyte % 8.2 %; Nucleated Red Blood Cells % 0.1
[2018-12-15] MEDS ORDERED: Azithromycin IV* 500 MG ADVAN VIAL/BAG IVPB ONE (10:46)
[2018-12-15] MEDS ORDERED: ED Azithromycn 500 mg/250 ml 500 MG/250 ML PREMIX.SET IVPB ONE (11:00)
--- NOTE | 2018-12-15 11:27 | ED ---
Respiratory - HPI Summary HPI Summary: Patient is a 58-year-old female presenting to the ED with respiratory distress. History of COPD and smoker. Patient states over the course of the last 2-3 days, her shortness of breath has been worsening despite her at home nebulizer treatments and steroids. She is currently not on any oral steroids or oral antibiotics. She states last time she had a COPD exacerbation she needed to be admitted to the hospital. She has never been intubated for this. She denies any fevers, sweats, chills. She does endorse cough with production and diffuse myalgias. - History of Current Complaint Chief Complaint: EDShortnessOfBreath Stated Complaint: SOB Time Seen by Provider: 12/15/18 08:52 Hx Obtained From: Patient Onset/Duration: Sudden Onset Timing: Constant Initial Severity: Mild Current Severity: Mild Pain Intensity: 0 Character: Cough (Productive) Sputum Amount: Moderate Sputum Color: White, Yellow Aggravating Factor(s): URI, Weather Change Alleviating Factor(s): Neb. Bronchodilators (Frequency Of Use), Steriods Associated Signs and Symptoms: Diaphoresis, Dyspnea - Risk Factors Status Asthmaticus Risk Factors: Negative Pulmonary Embolism Risk Factors: Negative Pseudomonas Risk Factors: Negative Tuberculosis Risk Factors: Negative - Allergy/Home Medications Allergies/Adverse Reactions: Allergies Allergy/AdvReac Type Severity Reaction Status Date / Time bupropion Allergy Intermediate Hives Verified 12/15/18 08:57 oxycodone Allergy Intermediate Swelling Verified 12/15/18 08:57 Of Face,Lips,& Throat Home Medications: Home Medications Fluticasone-Salmeterol 250-50* [Advair Diskus 250-50*] 1 puff INH BID 12/15/18 [ History Confirmed 12/15/18] Lisinopril/HCTZ 20/12.5(NF) [Zestoretic 20/12.5(NF)] 1 tab PO DAILY 12/15/18 [ History Confirmed 12/15/18] Zolpidem TAB* [Ambien TAB*] 10 mg PO BEDTIME PRN 12/15/18 [History Confirmed ] dilTIAZem HCl [Diltiazem 24Hr ER] 120 mg PO DAILY 12/15/18 [History Confirmed ] PMH/Surg Hx/FS Hx/Imm Hx Previously Healthy: Yes Cardiovascular History: Reports: Hx Hypertension Respiratory History: Reports: Hx Asthma, Hx Chronic Obstructive Pulmonary Disease (COPD), Hx Seasonal Allergies, Hx Sleep Apnea - CPAP GI History: Reports: Hx Gall Bladder Disease, Other GI Disorders - pancreatic ca Musculoskeletal History: Reports: Hx Arthritis Sensory History: Reports: Hx Contacts or Glasses Denies: Hx Hearing Aid Opthamlomology History: Reports: Hx Contacts or Glasses Psychiatric History: Reports: Hx Anxiety, Hx Depression - Cancer History Cancer Type, Location and Year: pancreatic ca 2005 - Surgical History Surgery Procedure, Year, and Place: partial pancreatectomy; partial hysterectomy ; spleenectomy; cholecystectomy - Immunization History Hx Pertussis Vaccination: No Immunizations Up to Date: Yes Infectious Disease History: No Infectious Disease History: Denies: Hx Clostridium Difficile, Hx Hepatitis, Hx Human Immunodeficiency Virus (HIV), Traveled Outside the [place] in Last 30 Days - Family History Known Family History: Positive: Hypertension - Social History Occupation: Employed Full-time Lives: With Family Alcohol Use: Rare Hx Substance Use: No Substance Use Type: Reports: None Substance Use Comment - Amount & Last Used: CBD Oil Smoking Status (MU): Former Smoker Type: Cigarettes Amount Used/How Often: 8-10 cigarettes a day Review of Systems Constitutional: Negative Negative: Fever, Chills, Fatigue, Skin Diaphoresis Negative: Palpitations, Chest Pain Positive: Shortness Of Breath, Cough Negative: Vomiting, Diarrhea, Nausea Negative: Arthralgia, Myalgia Negative: Rash, Bruising Neurological: Negative All Other Systems Reviewed And Are Negative: Yes Physical Exam Triage Information Reviewed: Yes Vital Signs On Initial Exam: Initial Vitals Temp Pulse Resp BP Pulse Ox 98.3 F 130 32 165/95 76 12/15/18 08:44 12/15/18 08:44 12/15/18 08:44 12/15/18 08:44 12/15/18 08:44 Vital Signs Reviewed: Yes Appearance: Positive: Well-Appearing, Well-Nourished Skin: Positive: Skin Color Reflects Adequate Perfusion Head/Face: Positive: Normal Head/Face Inspection Eyes: Positive: EOMI, Conjunctiva Clear Neck: Positive: No Lymphadenopathy Respiratory/Lung Sounds: Positive: Wheezes - Patient is able to speak in full sentences, no rhonchi bilaterally, no stridor Cardiovascular: Positive: Pulses are Symmetrical in both Upper and Lower Extremities Musculoskeletal: Positive: Normal, Strength/ROM Intact Neurological: Positive: Sensory/Motor Intact Psychiatric: Positive: Affect/Mood Appropriate Diagnostics - Vital Signs Vital Signs Temp Pulse Resp BP Pulse Ox 12/15/18 10:41 124 36 145/93 93 12/15/18 10:11 124 28 161/95 94 12/15/18 10:00 128 26 95 12/15/18 09:40 123 14 172/101 96 12/15/18 09:00 122 29 96 12/15/18 08:55 125 19 123/98 97 12/15/18 08:44 98.3 F 130 32 165/95 76 - Laboratory Lab Results: Lab Results 12/15/18 12/15/18 12/15/18 Range/Units 09:27 09:29 09:31 WBC (3.5-10.8) 10^3/ul RBC (4.00-5.40) 10^6/ul Hgb (12.0-16.0) g/dl Hct (35-47) % MCV (80-97) fL MCH (27-31) pg MCHC (31-36) g/dl RDW (10.5-15) % Plt Count (150-450) 10^3/ul MPV (7.4-10.4) fL Neut % (Auto) % Lymph % (Auto) % [place] % (Auto) % Eos % (Auto) % Baso % (Auto) % Absolute Neuts (auto) (1.5-7.7) 10^3/ul Absolute Lymphs (auto) (1.0-4.8) 10^3/ul Absolute Monos (auto) (0-0.8) 10^3/ul Absolute Eos (auto) (0-0.6) 10^3/ul Absolute Basos (auto) (0-0.2) 10^3/ul Absolute Nucleated RBC 10^3/ul Nucleated RBC % Patient Temperature ABG pH ABG pH (Temp Correct) ABG pCO2 ABG pCO2 (Temp Corrct ABG pO2 ABG pO2 (Temp Correct ABG HCO3 ABG O2 Saturation ABG Base Excess VBG pH (7.32-7.43) VBG pCO2 (41-51) mmHg VBG pO2 (35-45) mmHg VBG HCO3 (24-28) mmol/L VBG O2 Saturation (70-80) % VBG Base Excess (0.0-4.0) mmol/L Respiration Rate O2 Delivery Device Ventilator Type Vent Mode FiO2 Inspiratory Time PEEP Pressure Support Pressure Control EPAP IPAP BiPAP Sodium 139 (135-145) mmol/L Potassium 4.2 (3.5-5.0) mmol/L Chloride 96 L (101-111) mmol/L Carbon Dioxide 33 H (22-32) mmol/L Anion Gap 10 (2-11) mmol/L BUN 16 (6-24) mg/dL Creatinine 0.49 L (0.51-0.95) mg/dL Est GFR ( Amer) 157.0 (>60) Est GFR (Non-Af Amer) 129.7 (>60) BUN/Creatinine Ratio 32.7 H (8-20) Glucose 125 H (70-100) mg/dL Lactic Acid 0.6 (0.5-2.0) mmol/L Calcium 9.9 (8.6-10.3) mg/dL Total Bilirubin 0.40 (0.2-1.0) mg/dL AST 15 (13-39) U/L ALT 14 (7-52) U/L Alkaline Phosphatase 87 (34-104) U/L Total Creatine Kinase 51 (10-223) U/L Troponin I 0.03 (<0.04) ng/mL C-Reactive Protein 144.58 H (<8.01) mg/L B-Natriuretic Peptide (<=100) pg/mL Total Protein 7.1 (6.4-8.9) g/dL Albumin 3.7 (3.2-5.2) g/dL Globulin 3.4 (2-4) g/dL Albumin/Globulin Ratio 1.1 (1-3) Beta HCG, Quant 2.38 mIU/mL Influenza A (Rapid) Negative (Negative) Influenza B (Rapid) Negative (Negative) 12/15/18 12/15/18 12/15/18 Range/Units 09:38 09:38 10:33 WBC 19.3 H (3.5-10.8) 10^3/ul RBC 4.99 (4.00-5.40) 10^6/ul Hgb 14.1 (12.0-16.0) g/dl Hct 45 (35-47) % MCV 90 (80-97) fL MCH 28 (27-31) pg MCHC 31 (31-36) g/dl RDW 14 (10.5-15) % Plt Count 292 (150-450) 10^3/ul MPV 10.8 H (7.4-10.4) fL Neut % (Auto) 82.0 % Lymph % (Auto) 8.2 % [place] % (Auto) 9.3 % Eos % (Auto) 0.2 % Baso % (Auto) 0.3 % Absolute Neuts (auto) 15.9 H (1.5-7.7) 10^3/ul Absolute Lymphs (auto) 1.6 (1.0-4.8) 10^3/ul Absolute Monos (auto) 1.8 H (0-0.8) 10^3/ul Absolute Eos (auto) 0 (0-0.6) 10^3/ul Absolute Basos (auto) 0.1 (0-0.2) 10^3/ul Absolute Nucleated RBC 0 10^3/ul Nucleated RBC % 0.1 Patient Temperature ABG pH ABG pH (Temp Correct) ABG pCO2 ABG pCO2 (Temp Corrct ABG pO2 ABG pO2 (Temp Correct ABG HCO3 ABG O2 Saturation ABG Base Excess VBG pH 7.35 (7.32-7.43) VBG pCO2 68 H (41-51) mmHg VBG pO2 60.0 H (35-45) mmHg VBG HCO3 31.9 H (24-28) mmol/L VBG O2 Saturation 92.4 H (70-80) % VBG Base Excess 9.2 H (0.0-4.0) mmol/L Respiration Rate O2 Delivery Device Ventilator Type Vent Mode FiO2 Inspiratory Time PEEP Pressure Support Pressure Control EPAP IPAP BiPAP Sodium (135-145) mmol/L Potassium (3.5-5.0) mmol/L Chloride (101-111) mmol/L Carbon Dioxide (22-32) mmol/L Anion Gap (2-11) mmol/L BUN (6-24) mg/dL Creatinine (0.51-0.95) mg/dL Est GFR ( Amer) (>60) Est GFR (Non-Af Amer) (>60) BUN/Creatinine Ratio (8-20) Glucose (70-100) mg/dL Lactic Acid (0.5-2.0) mmol/L Calcium (8.6-10.3) mg/dL Total Bilirubin (0.2-1.0) mg/dL AST (13-39) U/L ALT (7-52) U/L Alkaline Phosphatase (34-104) U/L Total Creatine Kinase (10-223) U/L Troponin I (<0.04) ng/mL C-Reactive Protein (<8.01) mg/L B-Natriuretic Peptide 212 H (<=100) pg/mL Total Protein (6.4-8.9) g/dL Albumin (3.2-5.2) g/dL Globulin (2-4) g/dL Albumin/Globulin Ratio (1-3) Beta HCG, Quant mIU/mL Influenza A (Rapid) (Negative) Influenza B (Rapid) (Negative) 12/15/18 Range/Units 11:10 WBC (3.5-10.8) 10^3/ul RBC (4.00-5.40) 10^6/ul Hgb (12.0-16.0) g/dl Hct (35-47) % MCV (80-97) fL MCH (27-31) pg MCHC (31-36) g/dl RDW (10.5-15) % Plt Count (150-450) 10^3/ul MPV (7.4-10.4) fL Neut % (Auto) % Lymph % (Auto) % [place] % (Auto) % Eos % (Auto) % Baso % (Auto) % Absolute Neuts (auto) (1.5-7.7) 10^3/ul Absolute Lymphs (auto) (1.0-4.8) 10^3/ul Absolute Monos (auto) (0-0.8) 10^3/ul Absolute Eos (auto) (0-0.6) 10^3/ul Absolute Basos (auto) (0-0.2) 10^3/ul Absolute Nucleated RBC 10^3/ul Nucleated RBC % Patient Temperature Not Reportable ABG pH Pending ABG pH (Temp Correct) Pending ABG pCO2 Pending ABG pCO2 (Temp Corrct Pending ABG pO2 Pending ABG pO2 (Temp Correct Pending ABG HCO3 Pending ABG O2 Saturation Pending ABG Base Excess Pending VBG pH (7.32-7.43) VBG pCO2 (41-51) mmHg VBG pO2 (35-45) mmHg VBG HCO3 (24-28) mmol/L VBG O2 Saturation (70-80) % VBG Base Excess (0.0-4.0) mmol/L Respiration Rate Not Reportable O2 Delivery Device oxymask Ventilator Type Not Reportable Vent Mode Not Reportable FiO2 Not Reportable Inspiratory Time Not Reportable PEEP Not Reportable Pressure Support Not Reportable Pressure Control Not Reportable EPAP Not Reportable IPAP Not Reportable BiPAP Not Reportable Sodium (135-145) mmol/L Potassium (3.5-5.0) mmol/L Chloride (101-111) mmol/L Carbon Dioxide (22-32) mmol/L Anion Gap (2-11) mmol/L BUN (6-24) mg/dL Creatinine (0.51-0.95) mg/dL Est GFR ( Amer) (>60) Est GFR (Non-Af Amer) (>60) BUN/Creatinine Ratio (8-20) Glucose (70-100) mg/dL Lactic Acid (0.5-2.0) mmol/L Calcium (8.6-10.3) mg/dL Total Bilirubin (0.2-1.0) mg/dL AST (13-39) U/L ALT (7-52) U/L Alkaline Phosphatase (34-104) U/L Total Creatine Kinase (10-223) U/L Troponin I (<0.04) ng/mL C-Reactive Protein (<8.01) mg/L B-Natriuretic Peptide (<=100) pg/mL Total Protein (6.4-8.9) g/dL Albumin (3.2-5.2) g/dL Globulin (2-4) g/dL Albumin/Globulin Ratio (1-3) Beta HCG, Quant mIU/mL Influenza A (Rapid) (Negative) Influenza B (Rapid) (Negative) Result Diagrams: 12/15/18 09:38 12/15/18 09:27 Lab Statement: Any lab studies that have been ordered have been reviewed, and results considered in the medical decision making process. Disposition - Course Course Of Treatment: On physical examination on arrival, patient arrives with 5 L O2 mask. Her sat is currently 94%. She appears in respiratory distress with increased WOB. She states her at home nebulizer treatments have not been improving her symptoms. On arrival, she is left on mask with 5 L. It does not. At this time she needs to be on BiPAP for Vapotherm. Labs obtained which show a leukocytosis of 19.1 and a CRP 144. BNP 212. Patient has chronic kidney disease which appears to be worsening at 32.7 BUN creatinine ratio. She is given magnesium 2 mg, Decadron 10 mg and 2 L normal saline, 2 DuoNebs and azithromycin 500 IV. Blood culture obtained. Did not begin sepsis protocol due to afebrile nature and known COPD. Discussed this case with hospitalist who agrees to admit for respiratory distress and COPD exacerbation. - Diagnoses Provider Diagnoses: COPD exacerbation Is Visit Related: No - Physician Notifications Discussed Care Of Patient With: Samantha Finney Instructed by Provider To: Admit As Inpatient Discharge - Sign-Out/Discharge Documenting (check all that apply): Patient Departure Patient Received Moderate/Deep Sedation with Procedure: No - Discharge Plan Condition: Stable Disposition: ADMITTED TO [facility] Referrals: Stevenson Carmichael MD [Primary Care Provider] - - Billing Disposition and Condition Condition: STABLE Disposition: Admitted to [facility]
[2018-12-15] MEDS: NS 0.9% 1000 ML** 2,000 ML IV ONE ×2 (11:53→13:58)
[2018-12-15] MEDS ORDERED: Azithromycin IV(*) 500 MG in NS 0.9% 250 ML* 250 ML IVPB ONE (12:00)
[2018-12-15] MEDS ORDERED: Albuterol HFA INHALER* 8 gm MDI INH PRN (14:36)
[2018-12-15] MEDS: methylPREDNISolone SOD 40 MG* 1 ML VIAL IV SCH ×2 (15:39→23:01)
[2018-12-15] MEDS: Heparin VIAL(*) 5000 UNITS/ML VIAL (FIVE THOUSAND) SUBCUT SCH ×2 (15:39→15:44)
[2018-12-15] MEDS: Diltiazem CD CAP* 120 MG PO SCH (15:40)
[2018-12-15] MEDS: NS 0.9% 1000 ML** 1,000 ML IV SCH (15:49)
[2018-12-15 16:58] LABS: Urine Appearance Cloudy; Urine Bacteria Absent (Absent); Urine Bilirubin Negative (Negative); Urine Blood Negative (Negative); Urine Color Yellow; Urine Glucose 2+(150 mg/dL) (Negative); Urine Ketones 1+ (Negative); Urine Nitrite Negative (Negative); Urine Protein 2+(100 mg/dL) (Negative); Urine Red Blood Cell Trace(0-2/hpf) (Absent); Urine Specific Gravity 1.019 (1.010-1.030); Urine Squamous Epithelial Cell Present (Absent); Urine Urobilinogen Negative (Negative); Urine White Blood Cell Trace(0-5/hpf) (Absent)
--- NOTE | 2018-12-15 17:02 | HP ---
CC: Dr. Stevenson Carmichael * HISTORY AND PHYSICAL: DATE OF ADMISSION: 12/15/18 PRIMARY CARE PROVIDER: Dr. Stevenson Carmichael. ATTENDING PHYSICIAN: Dr. Samantha Finney * (dictated by Lorin Michaud NP) . CHIEF COMPLAINT: Shortness of breath. HISTORY OF PRESENT ILLNESS: Ms. Carpenter is a 58-year-old female with a past medical history significant for hypertension, COPD, sleep apnea; uses CPAP, arthritis, anxiety, depression, pancreatic cancer who was brought to the emergency room by her today for being off and having concerns for her shortness of breath. According to Ms. Carpenter, she has had no fevers or chills. She reports intermittent chest discomfort for 2 days. She is really unable to describe this. Additionally, she states that she has had a cough for years, but over the last 5 days, it has turned into a thick yellow mucus and previously had been a clear thick mucus. She reports shortness of breath at baseline, but feels this has been worse over the last few days. She reports nausea a few days ago without emesis. She reports intermittent headaches, but denies any headaches since September when she states that she was having headaches because of hypoxia. She reports recent myalgias that have resolved. She states that she is missing a day. She believes that it was Saturday and did not realize that it was Saturday. She felt as though she had the flu for a few days, but this is resolving. She continues to feel fatigued. She is on 5 L via a simple mask at home of supplemental oxygen. She states her last steroid use was in September when she was hospitalized for COPD exacerbation. She states that she follows with Dr. Serna with pulmonology. Her checked on her today and was concerned and so he brought her to the emergency room for further evaluation. Upon arrival to the emergency room, she was noted to be hypoxic with O2 sat in the 70s. Her oxygen saturations have been in the high 80s to the mid 90s on 5 L via nasal cannula. She has been noted to be tachycardic during her stay, but she has not taken her diltiazem since Saturday , so I suspect that 2 days without her Cardizem is contributing to her tachycardia. While in the ER, she had labs showing white blood cell count of 19.3 with significantly elevated CRP of 144.58, BNP of 112. I suspect she is dehydrated as her BUN creatinine ratio was 32. She had blood gas showing hypercarbia with CO2 of 64; I have no previous for comparison. She had influenza A and B negative. She received azithromycin, 2 L of saline. She was noted to be tachycardic. An EKG was obtained showing a sinus tach with a rate of 129, no ST depression. When compared to previous, this is similar. Due to her work of breathing, she was started on Vapotherm in the emergency room and she was referred to the hospitalist for possible admission. PAST MEDICAL HISTORY: 1. Hypertension. 2. COPD. 3. Sleep apnea, on CPAP. 4. Arthritis. 5. Anxiety, depression. 6. Pancreatic cancer. PAST SURGICAL HISTORY: 1. Status post partial pancreatectomy. 2. Status post partial hysterectomy. 3. Status post splenectomy. 4. Status post cholecystectomy. HOME MEDICATIONS: Include: 1. Albuterol HFA inhaler 1 to 2 puffs inhalation every 4 hours as needed for shortness of breath or wheeze. 2. Lisinopril/hydrochlorothiazide 20/12.5 one tablet oral daily. 3. Advair Diskus 250/50 one puff inhalation twice daily. 4. Prilosec 20 mg oral daily. 5. Diltiazem 120 mg oral daily. 6. Spiriva 1 puff inhalation daily. 7. Ambien 10 mg oral daily at bedtime as needed for insomnia. ALLERGIES: Include BUPROPION and OXYCODONE. FAMILY HISTORY: The patient's father with a history of PR and diabetes mellitus , mother with a history of skin cancer. SOCIAL HISTORY: She is a former smoker who reports quitting in November 2017. Previous to that, she was at least a [id number]-day smoker. She denies alcohol or recreational drug use. Her , Ismael, will be her surrogate decision maker in the event she is unable to make decisions for herself. REVIEW OF SYSTEMS: I performed an 11-point review of systems. All the pertinent positives and negatives are mentioned in the history of present illness. The remaining review of systems is negative. PHYSICAL EXAMINATION GENERAL APPEARANCE: Alert, pleasant, appears to be in no acute distress. VITAL SIGNS: Temperature 98.3, heart rate 119, respiratory rate 33, O2 sat 94% on 5 L via simple mask, blood pressure 147/97. HEENT: Normocephalic, atraumatic. Pupils are equal and reactive to light. Extraocular movements are intact. RESPIRATORY: With mild work of breathing, she is able to speak in full sentences. She has an intermittent expiratory wheeze in the right lower lobe; otherwise, her lung sounds are clear, but diminished. CARDIOVASCULAR: Regular rhythm, tachycardic. S1, S2 present. No murmurs, rubs , or gallops heard. ABDOMEN: Soft, nontender, nondistended. There are bowel sounds present x4. EXTREMITIES: No lower extremity edema. DP and PT pulses are 2+ and symmetric. MUSCULOSKELETAL: There is no clubbing or cyanosis noted. The patient exhibits good strength in all extremities. NEUROLOGICAL: Alert and oriented. Cranial nerves II through XII are grossly intact. PSYCHOLOGICAL: Calm and cooperative. SKIN: No rashes or abnormalities seen on the exposed skin. DIAGNOSTIC STUDIES/LABORATORY DATA: Sodium 139, potassium 4.2, chloride 96, CO2 of 33, BUN 16, creatinine 0.49, glucose 125. White blood cell count 19.3, hemoglobin 14.1, hematocrit 45, platelet count 292. Influenza A and B negative. Venous blood gas, pH 7.35, pCO2 of 68, pO2 of 60, HCO3 of 31.9, O2 sat 92.4%, base excess 9.2. ABG, pH 7.38, pCO2 of 64, pO2 of 70, HCO3 of 32.7, O2 sat 95.1%, base excess 10.2. Sputum culture was obtained and sent with the smear showing 4+ neutrophils, 1+ epithelial cells, 4+ Gram-negative diplococci, 1+ Gram-positive diplococci, 1+ Gram-positive bacilli. The gram-negative diplococci resemble branhamella/ neisseria species and culture is pending at this time. EKG from today, sinus tachycardia, rate of 129. There are no acute signs of ischemia, no ST depression. This is similar to previous EKG from 03/28/18. Chest x-ray from today, radiologist's interpretation: COPD. IMPRESSION: Ms. Carpenter is a 58-year-old female with past medical history significant for hypertension, COPD, sleep apnea, arthritis, anxiety, depression , pancreatic cancer who presents to the emergency room with increased shortness of breath. She will be admitted as an inpatient for COPD exacerbation. 1. Chronic obstructive pulmonary disease exacerbation. The patient has minimal wheezing at this point. Due to her tachycardia, I am going to change her DuoNebs to Xopenex nebs. Continue her on azithromycin. She has some mild work of breathing. At this time, I am going to continue the Vapotherm that has been started in the emergency room. She received Decadron here. I am going to change that to Solu-Medrol IV q.8 hours. As we are able to wean her off the Vapotherm, we will put her back on her 5 L. 2. Hypertension. We will continue on her home lisinopril, diltiazem. 3. Sleep apnea. She wears a CPAP at night. She will use hospital CPAP. 4. Arthritis. Supportive care. 5. Anxiety and depression. She is not currently on medications. We will continue that. 6. Fluids, electrolytes, and nutrition. She will be on a heart-healthy diet. 7. Code status. Full code. 8. DVT prophylaxis. She is moderate risk, will have subcu heparin. 9. Disposition. Inpatient. TIME SPENT: Time for this admission was approximately 60 minutes, greater than half of that was spent with the patient discussing medications, past medical history, the events leading up to her arrival today, performing a physical examination. The case has been reviewed with the attending, Dr. Finney, who agrees with the plan of care. LORIN MICHAUD, DIMITRI [id number]/[facility] #: [id number] KENISHA
[2018-12-15] MEDS: Mometasone/Formoter 200/5 MDI INH SCH (19:32)
[2018-12-15] MEDS: Levalbuterol 0.63MG/3ML NEB* UNIT OF USE INH SCH (19:36)
[2018-12-15] MEDS: Enoxaparin(*) 30 MG/0.3 ML SYR SUBCUT SCH (20:12)
[2018-12-15] MEDS: Zolpidem TAB* 10 MG PO PRN (21:34)
[2018-12-16] MEDS: Levalbuterol 0.63MG/3ML NEB* UNIT OF USE INH SCH ×4 (01:55→19:04)
[2018-12-16 05:42] LABS: ABS Basophils 0 10^3/ul (0-0.2); ABS Eosinophils 0 10^3/ul (0-0.6); ABS Lymphocytes 0.7 10^3/ul (1.0-4.8); ABS Monocytes 0.3 10^3/ul (0-0.8); ABS Neutrophils 14.5 10^3/ul (1.5-7.7); ABS Nucleated RBC 0 10^3/ul; Eosinophil % 0 %; Hematocrit 46 % (35-47); Hemoglobin 14.5 g/dl (12.0-16.0); Lymphocyte % 4.6 %; Mean Corpuscular HGB Conc 31 g/dl (31-36); Mean Corpuscular Hemoglobin 29 pg (27-31); Mean Corpuscular Volume 91 fL (80-97); Mean Platelet Volume 10.5 fL (7.4-10.4); Nucleated Red Blood Cells % 0; Platelet Count 324 10^3/ul (150-450); Red Blood Count 5.06 10^6/ul (4.00-5.40); Red Cell Distribution Width 14 % (10.5-15); White Blood Count 15.6 10^3/ul (3.5-10.8)
[2018-12-16 05:44] LABS: BUN/Creatinine Ratio 29.2 (8-20); Calcium 9.7 mg/dL (8.6-10.3); EGFR African American 160.7 (>60); EGFR Non-African American 132.8 (>60); Potassium 4.6 mmol/L (3.5-5.0)
[2018-12-16] MEDS: Pantoprazole TAB * 40 MG TAB PO SCH (06:10)
[2018-12-16] MEDS: NS 0.9% 1000 ML** 1,000 ML IV SCH (06:28)
[2018-12-16] MEDS: Mometasone/Formoter 200/5 MDI INH SCH ×2 (07:22→19:01)
[2018-12-16] MEDS: Tiotropium CAP.INH* CAP.INH/18 MCG (USE ORDER SET !) INH SCH (07:27)
--- NOTE | 2018-12-16 08:27 | PN ---
Subjective Date of Service: 12/16/18 Interval History: Ms. Carpenter is feeling better today. She continues to c/o SOB, but states this has improved from yesterday. She does have a productive cough which she is not able to further describe. She feels very tired. Slept well through the night. Does not feel at her baseline respiratory status. Denies CP, N/V. Family History: Unchanged from Admission Social History: Unchanged from Admission Past Medical History: Unchanged from Admission Objective Active Medications: Albuterol (Ventolin Hfa Inhaler*) 2 puff INH Q4H PRN SHORTNESS OF BREATH Diltiazem HCl (Cardizem Cd Cap*) 120 mg PO DAILY [facility]; Protocol Enoxaparin Sodium (Lovenox(*)) 30 mg SUBCUT Q24H [facility] Hydrochlorothiazide (Hydrodiuril Tab*) 12.5 mg PO DAILY [facility] Azithromycin 250 mg/ Sodium (Chloride) 250 mls @ 250 mls/hr IVPB Q24H [facility] Sodium Chloride (Ns 0.9% 1000 Ml) 1,000 mls @ 75 mls/hr IV PER RATE [facility] Influenza Virus Vaccine (Fluarix *Quad* *) 0.5 ml IM .ONCE ONE Levalbuterol HCl (Xopenex 0.63mg/3ml Neb*) 0.63 mg INH [id number] AWAKE [facility] Lisinopril (Prinivil Tab*) 20 mg PO DAILY [facility] Methylprednisolone Sodium Succinate (Solu-Medrol 40 Mg) 40 mg IV Q8H [facility] Mometasone Furoate/Formoterol Fumar (Dulera 200/5 Mdi*) 2 puff INH BID [facility] Pantoprazole Sodium (Protonix Tab*) 40 mg PO DAILY@0600 [facility] Tiotropium [place] (Spiriva Cap.Inh*) 1 cap INH DAILY [facility] Zolpidem Tartrate (Ambien Tab*) 10 mg PO BEDTIME PRN SLEEP Vital Signs - 8 hr 12/16/18 12/16/18 12/16/18 00:45 01:00 01:01 Temperature Pulse Rate 97 95 91 Respiratory 29 25 25 Rate Blood Pressure 139/74 130/70 (mmHg) O2 Sat by Pulse 96 97 97 Oximetry 12/16/18 12/16/18 12/16/18 01:15 01:30 01:45 Temperature Pulse Rate 91 95 90 Respiratory 26 31 25 Rate Blood Pressure 125/71 139/79 134/77 (mmHg) O2 Sat by Pulse 95 96 95 Oximetry 12/16/18 12/16/18 12/16/18 02:00 02:01 02:15 Temperature Pulse Rate 94 90 90 Respiratory 25 23 26 Rate Blood Pressure 127/89 143/72 (mmHg) O2 Sat by Pulse 95 95 96 Oximetry 12/16/18 12/16/18 12/16/18 02:30 02:45 03:00 Temperature Pulse Rate 90 90 93 Respiratory 31 26 24 Rate Blood Pressure 143/78 134/70 144/85 (mmHg) O2 Sat by Pulse 95 96 96 Oximetry 12/16/18 12/16/18 12/16/18 03:01 03:15 03:30 Temperature Pulse Rate 90 91 88 Respiratory 27 26 24 Rate Blood Pressure 119/73 141/72 (mmHg) O2 Sat by Pulse 95 95 95 Oximetry 12/16/18 12/16/18 12/16/18 03:31 03:45 03:48 Temperature 97.8 F Pulse Rate 88 Respiratory 26 27 Rate Blood Pressure 131/79 (mmHg) O2 Sat by Pulse 96 Oximetry 12/16/18 12/16/18 12/16/18 04:00 04:01 04:15 Temperature Pulse Rate 85 76 83 Respiratory 26 25 28 Rate Blood Pressure 132/83 130/81 (mmHg) O2 Sat by Pulse 96 96 96 Oximetry 12/16/18 12/16/18 12/16/18 05:00 05:32 05:45 Temperature Pulse Rate 93 96 97 Respiratory 19 24 19 Rate Blood Pressure 123/98 140/84 (mmHg) O2 Sat by Pulse 92 87 94 Oximetry 12/16/18 12/16/18 12/16/18 06:00 06:01 07:37 Temperature Pulse Rate 89 90 98 Respiratory 35 32 25 Rate Blood Pressure 148/88 (mmHg) O2 Sat by Pulse 93 93 98 Oximetry Oxygen Devices in Use Now: High Flow Nasal Cannula - 10L Appearance: Middle-aged female laying in bed in NAD; Drowsy Eyes: No Scleral Icterus Ears/Nose/Mouth/Throat: Mucous Membranes Moist Neck: NL Appearance and Movements; NL JVP, Trachea Midline Respiratory: Symmetrical Chest Expansion and Respiratory Effort, - - Scattered wheezing and rhonchi, otherwise diminished Cardiovascular: NL Sounds; No Murmurs; No JVD, RRR Abdominal: NL Sounds; No Tenderness; No Distention Extremities: No Edema Skin: No Rash or Ulcers Neurological: Alert and Oriented x 3 Lines/Tubes/Other Access: Clean, Dry and Intact Peripheral IV Nutrition: Taking PO's Result Diagrams: 12/16/18 05:20 12/16/18 05:20 Assess/Plan/Problems-Billing Assessment: Ms. Carpenter is a 58 yo F with PMH of COPD of 5L NC, HTN, BRITNEY, depression, anxiety , and pancreatic cancer in 2005; who presented to the ED with c/o SOB and was found to have a COPD exacerbation requiring ICU admission for vapotherm. - Patient Problems (1) COPD exacerbation Code(s): J44.1 - CHRONIC OBSTRUCTIVE PULMONARY DISEASE W (ACUTE) EXACERBATION Comment: - Hypoxic with sat in the 70s on arrival - Sputum culture pending - CXR shows hyperinflation, but no infiltates - Continue azithromycin, solumedrol, Dulera, Spiriva, nebs (2) Acute on chronic respiratory failure with hypoxia Code(s): J96.21 - ACUTE AND CHRONIC RESPIRATORY FAILURE WITH HYPOXIA Comment: - Secondary to COPD exacerbation - Requiring vapotherm on admission, now down to 10L NC; baseline is 5L NC - Plan as above (3) Leukocytosis Code(s): D72.829 - ELEVATED WHITE BLOOD CELL COUNT, UNSPECIFIED Comment: - Reactive, secondary to COPD exacerbation - Continue to trend, but anticipate WBC will remain elevated d/t steroids (4) HTN (hypertension) Code(s): I10 - ESSENTIAL (PRIMARY) HYPERTENSION Comment: - Slightly hypertensive, SBP 120-140s - Continue lisinopril, HCTZ, diltiazem (5) BRITNEY (obstructive sleep apnea) Code(s): G47.33 - OBSTRUCTIVE SLEEP APNEA (ADULT) (PEDIATRIC) Comment: - Continue CPAP (6) DVT prophylaxis Comment: - Lovenox (7) Full code status Code(s): Z78.9 - OTHER SPECIFIED HEALTH STATUS Comment: Status and Disposition: Inpatient. Anticipate d/c home when medically stable and back at baseline oxygen requirements. Attending: Samantha Finney
[2018-12-16] MEDS: Hydrochlorothiazide TAB* 25 MG PO SCH (08:29)
[2018-12-16] MEDS: Diltiazem CD CAP* 120 MG PO SCH (08:29)
[2018-12-16] MEDS: Lisinopril TAB* 10 MG PO SCH (08:29)
[2018-12-16] MEDS: methylPREDNISolone SOD 40 MG* 1 ML VIAL IV SCH ×3 (08:30→22:56)
[2018-12-16] MEDS ORDERED: Spiriva Inhaler DEVICE* 1 EACH DEVICE INH ONE (09:00)
[2018-12-16] MEDS: Azithromycin IV(*) 250 MG in NS 0.9% 250 ML* 250 ML IVPB SCH (12:43)
[2018-12-16] MEDS: Enoxaparin(*) 30 MG/0.3 ML SYR SUBCUT SCH (19:30)
[2018-12-16] MEDS: Zolpidem TAB* 10 MG PO PRN (21:17)
[2018-12-17] MEDS: Levalbuterol 0.63MG/3ML NEB* UNIT OF USE INH SCH ×2 (01:48→06:14)
[2018-12-17] MEDS: Pantoprazole TAB * 40 MG TAB PO SCH (05:58)
[2018-12-17] MEDS: Tiotropium CAP.INH* CAP.INH/18 MCG (USE ORDER SET !) INH SCH ×2 (06:15→07:59)
[2018-12-17] MEDS: Mometasone/Formoter 200/5 MDI INH SCH ×2 (06:15→07:59)
[2018-12-17 06:44] LABS: ABS Basophils 0.1 10^3/ul (0-0.2); ABS Eosinophils 0 10^3/ul (0-0.6); ABS Monocytes 0.6 10^3/ul (0-0.8); ABS Neutrophils 18.9 10^3/ul (1.5-7.7); ABS Nucleated RBC 0 10^3/ul; Eosinophil % 0 %; Hematocrit 44 % (35-47); Mean Corpuscular HGB Conc 32 g/dl (31-36); Mean Corpuscular Hemoglobin 29 pg (27-31); Mean Corpuscular Volume 90 fL (80-97); Mean Platelet Volume 10.9 fL (7.4-10.4); Nucleated Red Blood Cells % 0; Platelet Count 356 10^3/ul (150-450); Red Blood Count 4.91 10^6/ul (4.00-5.40); Red Cell Distribution Width 14 % (10.5-15); White Blood Count 20.6 10^3/ul (3.5-10.8)
[2018-12-17] MEDS: methylPREDNISolone SOD 40 MG* 1 ML VIAL IV SCH ×2 (07:45→14:35)
[2018-12-17] MEDS: Hydrochlorothiazide TAB* 25 MG PO SCH (09:18)
[2018-12-17] MEDS: Lisinopril TAB* 10 MG PO SCH (09:19)
[2018-12-17] MEDS: Diltiazem CD CAP* 120 MG PO SCH (09:20)
[2018-12-17] MEDS: Azithromycin IV(*) 250 MG in NS 0.9% 250 ML* 250 ML IVPB SCH (13:11)
[2018-12-17 13:57] VITALS: BP 132/77
--- NOTE | 2018-12-17 19:46 | DS ---
CC: Dr. Stevenson Carmichael; Dr. Von Serna * DISCHARGE SUMMARY: DATE OF ADMISSION: 12/15/18 DATE OF DISCHARGE: 12/17/18 PRIMARY CARE PROVIDER: Dr. Stevenson Carmichael. ADVERTISING CAMPAIGN MANAGER: Dr. Von Serna. ATTENDING PHYSICIAN: Dr. Samantha Finney * (dictated by Mery Dao NP). PRIMARY DIAGNOSES: 1. Chronic obstructive pulmonary disease exacerbation. 2. Acute on chronic hypoxic respiratory failure. 3. Leukocytosis. SECONDARY DIAGNOSES: 1. Hypertension. 2. Obstructive sleep apnea. STUDIES WHILE IN THE HOSPITAL: 1. Chest x-ray on 12/15/18, reads as findings consistent with COPD. No evidence for acute finding. 2. EKG on 12/15/18, shows sinus tachycardia with a rate of 129, QTc 452. No acute changes. 3. Chest x-ray on 12/17/18, reads as hyperinflation consistent with COPD. No active cardiopulmonary disease. HISTORY OF PRESENT ILLNESS AND HOSPITAL COURSE: Ms. Carpenter is a 58-year-old female with past medical history of COPD; chronic hypoxic respiratory failure, on 5 L of oxygen; hypertension; obstructive sleep apnea; pancreatic cancer, status post partial pancreatectomy; anxiety and depression, who presented to the emergency room on 12/15/18 with complaints of shortness of breath. Please see the history and physical by Lorin Win NP, for complete summary of the events leading up to this hospitalization. In short, the patient had shortness of breath and intermittent chest discomfort for 2 days. She additionally noted a cough, which is chronic, but reported that over the last 5 days she had developed thick yellow sputum. Her last hospitalization for COPD exacerbation was in September of 2018. Upon arrival to the emergency room, the patient was noted to be hypoxic in the 70s and ultimately required Vapotherm. She was negative for influenza A and B. She had a chest x-ray as noted above. She was noted to be tachycardic, but reported that she had not taken her Cardizem in a few days. Because of her respiratory status, she was admitted by the hospitalist service. The patient ultimately required Vapotherm up to 30 L and so was admitted to the intensive care unit overnight. She was placed on azithromycin and Solu-Medrol. She had a relatively uneventful night in the intensive care unit and was able to be weaned down to 10 L of oxygen. When I saw the patient yesterday morning, she was quite drowsy, though felt as though her breathing was significantly improved. She was transferred out of the ICU on 12/16/18. As of today, the patient has been able to be weaned back down to her baseline of 5 L of oxygen. When speaking with the patient this morning, she feels as though her respiratory status is back to baseline. She denies any shortness of breath. She does continue to report some yellow sputum, but feels as though this is improving. She is anxious to return home. Upon speaking with the patient, she did admit to me that she does not wear her portable oxygen when she goes to the store because she is embarrassed. I ambulated around the unit with the patient and she was able to maintain saturations in the low 90s on 5 L of oxygen. In an attempt to show the patient the importance of her oxygen, I did turn the oxygen off and walked with her approximately a quarter [address] around the unit and on room air she did drop to 78%. She was quite shocked of this and she reported that it did scare her and that she would be compliant with wearing her oxygen at all times going forward. On exam today, she did have some crackles in bilateral bases. I did repeat a chest x-ray to ensure that there was not a pneumonia and results are noted above. I did speak at length with the patient and her about her diagnosis of COPD and treatment going forward. The patient was quite distressed to learn that there is no cure for COPD, though she has quit smoking in the past and does see a hydrogen cell tender. I have encouraged her to continue her current medical regimen and to avoid cigarette smoke and other irritants. She and her understand that she will need to be on 5 L of oxygen at all times and after my conversation with them, seemed to have a good understanding of the goals of care. This afternoon , she did not appear to be in any distress. She had a regular respiratory rate and as noted above was at her baseline oxygen requirements. Ms. Carpenter is stable for discharge today. Vital signs are as follows: Temp 98.6 , heart rate 87, respiratory rate 16, oxygen saturation 94% on 5 L nasal cannula , blood pressure 132/77. DISCHARGE MEDICATIONS: New medications: 1. Azithromycin 250 mg p.o. daily x3 days. 2. Prednisone 10 mg tabs (take 4 tabs for 3 days, then 3 tabs for 3 days, then 2 tabs for 3 days, then 1 tab for 3 days). Continued medications: 1. Albuterol MDI 1 to 2 puffs q.4 hours p.r.n. shortness of breath. 2. Diltiazem ER 120 mg p.o. daily. 3. Advair 250/50 one puff b.i.d. 4. Xopenex 0.63 mg 1 neb q.6 hours p.r.n. shortness of breath. 5. Lisinopril/hydrochlorothiazide 20/12.5 one tab p.o. daily. 6. Omeprazole 20 mg p.o. daily. 7. Tiotropium 1 cap inhalation daily. 8. Ambien 10 mg p.o. at bedtime p.r.n. insomnia. DISCHARGE PLAN: Ms. Carpenter will be discharged home. Activity will be as tolerated. Diet will be regular as tolerated. Medications are noted above. The patient has been prescribed a prednisone taper, which she has been instructed to complete per label instructions. She also will need to complete 3 additional days of azithromycin to complete a total of 5 days of antibiotic therapy for her COPD exacerbation. I did send in a refill for her Xopenex nebulizers as she noted that she was out of those. Otherwise, she can continue her usual medications. As noted above, I did speak with the patient about her oxygen requirements and that she is expected to wear 5 L of oxygen at all times. She will need to follow up with her primary care provider in 4 to 7 days and she will follow up with her hydrogen cell tender as needed. She reports that she does have an appointment with him in January, but understands that she may need to move that up. The patient has been instructed to return to the emergency room or nearest hospital for any worsening of symptoms, shortness of breath, lightheadedness, dizziness, chest discomfort, high fevers, chills, night sweats, loss of consciousness, or any other worrisome signs or symptoms. This is a summarized report of a complex medical history and hospital stay. For further details, please see the entire medical record. TIME SPENT: Approximately 50 minutes was spent on this discharge. MERY DAO, MARKETING WRITER [id number]/[facility] #: [id number] [facility]OSPITALSissy
== END 2018-12-17 16:00 | disposition home or self-care (01) | DRG 140 ==
LOC: ED 08:42 → ICU 13:46 → MED 12-16 22:30
PROVIDERS: ADMIT Internal Medicine; ATTEND Internal Medicine
DX: J44.1 Chronic obstructive pulmonary disease with (acute) exacerbation (principal); J96.21 Acute and chronic respiratory failure with hypoxia; I10 Essential (primary) hypertension; M19.90 Unspecified osteoarthritis, unspecified site; F41.9 Anxiety disorder, unspecified; R00.0 Tachycardia, unspecified; F32.9 Major depressive disorder, single episode, unspecified; D72.829 Elevated white blood cell count, unspecified; G47.33 Obstructive sleep apnea (adult) (pediatric); Z90.81 Acquired absence of spleen; Z90.49 Acquired absence of other specified parts of digestive tract; Z82.49 Family history of ischemic heart disease and other diseases of the circulatory system; Z88.6 Allergy status to analgesic agent; Z85.07 Personal history of malignant neoplasm of pancreas; Z90.411 Acquired partial absence of pancreas; Z90.711 Acquired absence of uterus with remaining cervical stump; Z87.891 Personal history of nicotine dependence; Z83.3 Family history of diabetes mellitus; Z80.8 Family history of malignant neoplasm of other organs or systems; Z23 Encounter for immunization
CPT/HCPCS: 36415; 71045; 71046; 80048; 80053; 81003; 81015; 82550; 82803; 83605; 83880; 84484; 84702; 85025; 86140; 87040; 87070; 87077; 87086; 87205; 87641; 90686; 93005; 94640; 94660; 99285; A9270-GY; J0456; J1100; J1644; J1650; J2920; J3475

== ENCOUNTER 2019-03-08 11:56 | Emergency (ER) | payer BC ==
[2019-03-08] MEDS ORDERED: NS 0.9% 1000 ML** 1,000 ML IV ONE (12:19)
[2019-03-08] MEDS ORDERED: Ondansetron INJ* 2 MG/ML VIAL IV ONE (12:19)
[2019-03-08] MEDS ORDERED: Morphine 4 MG/ML VIAL (1 ml) 4 MG/ML VIAL IV ONE (12:21)
--- NOTE | 2019-03-08 12:23 | ED ---
Abdominal Pain/Female - HPI Summary HPI Summary: Pt. is a 59 y.o female who presents to the ER for right sided abd. pain x several days. Pt. notes pain became worse today with associated chills and N/V. Pt. has a remote hx of pancreatic cancer with a partial resection and splenectomy. Hx of COPD with chronic O2 use. Symptoms are moderate in severity. No current modifying factors. Pt. otherwise denies worsening SOB, CP, urinary sxs. - History of Current Complaint Chief Complaint: EDAbdPain Stated Complaint: I THINK I HAVE APPENDICITIS PER PT Time Seen by Provider: 03/08/19 12:03 Hx Obtained From: Patient Pain Intensity: 7 Allergies/Adverse Reactions: Allergies Allergy/AdvReac Type Severity Reaction Status Date / Time bupropion Allergy Intermediate Hives Verified 03/08/19 12:02 oxycodone Allergy Intermediate Swelling Verified 03/08/19 12:02 Of Face,Lips,& Throat PMH/Surg Hx/FS Hx/Imm Hx Previously Healthy: Yes Cardiovascular History: Reports: Hx Hypertension Respiratory History: Reports: Hx Asthma, Hx Chronic Obstructive Pulmonary Disease (COPD), Hx Seasonal Allergies, Hx Sleep Apnea - CPAP GI History: Reports: Hx Gall Bladder Disease, Other GI Disorders - pancreatic ca Musculoskeletal History: Reports: Hx Arthritis Sensory History: Reports: Hx Contacts or Glasses Denies: Hx Hearing Aid Opthamlomology History: Reports: Hx Contacts or Glasses Psychiatric History: Reports: Hx Anxiety, Hx Depression - Cancer History Cancer Type, Location and Year: pancreatic ca 2005 - Surgical History Surgery Procedure, Year, and Place: partial pancreatectomy; partial hysterectomy ; spleenectomy; cholecystectomy Infectious Disease History: No Infectious Disease History: Denies: Hx Clostridium Difficile, Hx Hepatitis, Hx Human Immunodeficiency Virus (HIV), Traveled Outside the [place] in Last 30 Days - Family History Known Family History: Positive: Hypertension, Non-Contributory - Social History Occupation: Employed Full-time Alcohol Use: None Hx Substance Use: No Substance Use Type: Reports: None Substance Use Comment - Amount & Last Used: CBD Oil Smoking Status (MU): Former Smoker Type: Cigarettes Amount Used/How Often: 8-10 cigarettes a day Review of Systems Positive: Fever, Chills Cardiovascular: Negative Negative: Palpitations, Chest Pain Positive: Shortness Of Breath - chronic. Negative: Cough Positive: Abdominal Pain, Vomiting, Nausea Genitourinary: Negative Neurological: Negative All Other Systems Reviewed And Are Negative: Yes Physical Exam Vital Signs On Initial Exam: Initial Vitals Temp Pulse Resp BP Pulse Ox 98.0 F 121 18 138/98 93 03/08/19 11:58 03/08/19 11:58 03/08/19 11:58 03/08/19 11:58 03/08/19 11:58 Diagnostics - Vital Signs Vital Signs Temp Pulse Resp BP Pulse Ox 03/08/19 12:13 97.9 F 109 16 116/79 97 03/08/19 11:58 98.0 F 121 18 138/98 93 - Laboratory Result Diagrams: 03/08/19 12:41 03/08/19 12:41 Lab Statement: Any lab studies that have been ordered have been reviewed, and results considered in the medical decision making process. Abdominal Pain Fem Course/Dx - Course Course Of Treatment: Pt. presenting for worsening right sided abd. pain and vomiting. Pt. notes xs having been ongoing for a few weeks but worsening over the last few days. Pt. afebrile with stable VS. Pt. given IV fluids, zofran and morphine. ECG done at 1219 shows a tachycardia 102 bpm, normal axis, no ST elevation or depression. Labs shows leukocytosis of 32k. WBC noted to be chronically elevated but not quite as high. CMP unremarkable other than mildly elevated lipase of 265. U/A negative. Surgeon, Dr. Hancock, was passing through ER and examined pt. At the time of his exam pt. had no pain. CT per radiology: IMPRESSION: 1. There is no CT apparent acute inflammatory change of the gastrointestinal tract. 2. Extensive chronic, degenerative and iatrogenic findings described in the body the. report. 3. Small infrarenal abdominal aortic aneurysm that is unchanged since the November 27, 2016. CTA. 4. Incidentally noted is calcified atherosclerosis of the iliac arteries. Please correlate. to signs or symptoms of lower extremity arterial insufficiency. On re-exam pt. is resting comfortably and feeling better. Case discussed with Dr. Pinto who recommends dc home with close f.u for repeat labs and eval. Pt. and comfortable with dc. To call pcp in the am for an apt. yasmany and repeat labs. Zofran rx. Will return to ER for increased pain, fever, vomiting or if concerned. Pt. understands and agrees with plan. - Diagnoses Differential Diagnosis: Positive: ACS, Appendicitis, Bowel Obstruction, Provider Diagnoses: Abdominal pain, Leukocytosis Discharge - Sign-Out/Discharge Documenting (check all that apply): Patient Departure Patient Received Moderate/Deep Sedation with Procedure: No - Discharge Plan Condition: Improved Disposition: HOME Prescriptions: Ondansetron TAB* [Zofran 4 MG Tab*] 4 mg PO Q6H PRN #12 tab PRN Reason: Vomiting Patient Education Materials: Leukocytosis (ED), Abdominal Pain (ED) Referrals: Stevenson Carmichael MD [Primary Care Provider] - Additional Instructions: Call your PCP tomorrow for a close follow up appointment--you will need blood work repeated Zofran as directed Return to ER for worsening pain, fever, uncontrollable vomiting, or if concerned - Billing Disposition and Condition Condition: IMPROVED Disposition: Home
[2019-03-08 12:49] LABS: Hematocrit 49 % (35-47); Hemoglobin 15.6 g/dL (12.0-16.0); Mean Corpuscular HGB Conc 32 g/dL (31-36); Mean Corpuscular Hemoglobin 29 pg (27-31); Mean Corpuscular Volume 89 fL (80-97); Mean Platelet Volume 10.8 fL (7.4-10.4); Platelet Count 257 10^3/uL (150-450); Red Blood Count 5.47 10^6 /uL (3.70-4.87); Red Cell Distribution Width 15 % (10.5-15)
[2019-03-08 13:00] LABS: Albumin 4.4 g/dL (3.2-5.2); Calcium 9.6 mg/dL (8.6-10.3); Potassium 3.8 mmol/L (3.5-5.0); Total Bilirubin 0.4 mg/dL (0.2-1.0)
[2019-03-08 13:06] LABS: Albumin/Globulin Ratio 1.8 (1-3); BUN/Creatinine Ratio 15.4 (8-20); C Reactive Protein 2.78 mg/L (<8.01); EGFR African American 76.6 (>60); EGFR Non-African American 63.3 (>60); Globulin 2.4 g/dL (2-4); Total Protein 6.8 g/dL (6.4-8.9)
[2019-03-08 13:10] LABS: ABS Basophils 0.1 10^3/ul (0-0.2); ABS Eosinophils 0.3 10^3/ul (0-0.6); ABS Lymphocytes 1.5 10^3/ul (1.0-4.8); ABS Monocytes 1.3 10^3/ul (0-0.8); ABS Neutrophils 28.8 10^3/ul (1.5-7.7); Eosinophil % 0.8 %; Lymphocyte % 4.8 %
[2019-03-08] MEDS ORDERED: Iohexol 300* (CONTRAST) 10 ML SDV IV ONE (14:55)
[2019-03-08 15:38] LABS: Urine Appearance Clear; Urine Bilirubin Negative (Negative); Urine Blood Negative (Negative); Urine Color Straw; Urine Glucose Negative (Negative); Urine Ketones Negative (Negative); Urine Nitrite Negative (Negative); Urine Protein Negative (Negative); Urine Urobilinogen Negative (Negative)
[2019-03-08 15:53] VITALS: BP 128/75
== END 2019-03-08 15:53 | disposition home or self-care (01) ==
LOC: ED 11:56
DX: R10.9 Unspecified abdominal pain (principal); D72.829 Elevated white blood cell count, unspecified; R11.10 Vomiting, unspecified; J44.9 Chronic obstructive pulmonary disease, unspecified; I10 Essential (primary) hypertension; F41.9 Anxiety disorder, unspecified; F32.9 Major depressive disorder, single episode, unspecified; Z88.5 Allergy status to narcotic agent; Z87.891 Personal history of nicotine dependence
CPT/HCPCS: 36415; 74177; 80053; 81003; 83605; 83690; 84484; 85025; 86140; 93005; 96361; 96374; 96375; 99283; J2270; J2405; Q9967

== ENCOUNTER 2019-12-31 13:21 | Inpatient (IN) | payer BC ==
--- OUTSIDE RECORDS SUMMARY | 2019-12-31 13:41 | XMS REPORT | Summary of Care ---
:1960 Author Organization [facility] Address [address] [address] Care Team Providers Name Role Phone Stevenson Carmichael Primary Care Provider Reason for Visit Reason Comments Cough x5 days Sinus Problem x10 days Encounter Details Date Type Department Care Team Description 12/28/2019 Office Visit [facility] Marianela Simms, Chronic obstructive pulmonary disease with acute exacerbation (HCC) (Primary Dx); Practice INSTRUMENT AND CONTROL TECHNICIAN SOB (shortness of breath) [address] [facility] [address] [place] [address] [place] [address] [phone] Allergies Active Allergy Reactions Severity Noted Date Comments Clarithromycin RECREATION SPECIALIST Reaction 11/16/2005 Oxycodone W/ Acetaminophen Rash 11/16/2005 THROAT CLOSING Bupropion Hcl Rash 11/16/2005 documented as of this encounter (statuses as of 12/28/2019) Medications Medication Sig Dispensed Refills Start Date End Date Status albuterol (PROVENTIL, 3 mL by 50 vial 1 05/05/2018 Active VENTOLIN) (2.5 Inhalation-SVN MG/3ML) 0.083% route EVERY FOUR Inhalation Nebu Soln HOURS NEEDED (wheezing). zolpidem (AMBIEN) 10 Take 1 Tab by 30 Tab 0 05/07/2018 Active MG Oral Tab mouth EVERY BEDTIME NEEDED for sleep/insomnia. cetirizine (ZYRTEC) Take 1 Tab by 90 Tab 1 05/05/2019 Active 10 MG Oral Tab mouth DAILY. Omeprazole delayed Take 20 mg by 90 Cap 1 05/05/2019 Active rel cap 20 MG Oral mouth DAILY. CAPSULE DELAYED RELEASE SPIRIVA HANDIHALER 18 INHALE CONTENTS 30 Cap 5 07/14/2019 Active MCG Inhalation Cap OF 1 CAPSULE BY MOUTH ONCE DAILY VENTOLIN HFA 108 (90 INHALE 2 PUFFS BY 18 g 3 08/10/2019 Active Base) MCG/ACT MOUTH EVERY 4 Inhalation Aero HOURS NEEDED SolnIndications: FOR WHEEZE Pulmonary emphysema, unspecified emphysema type (HCC) diltiazem (CARDIZEM) TAKE 1 TABLET BY 60 Tab 5 08/10/2019 Active 30 MG Oral Tab MOUTH TWICE DAILY diclofenac (VOLTAREN) 2 g by Topical 1 Tube 0 08/13/2019 Active 1 % Transdermal Gel route FOUR TIMES DAILY. Take as directed WIXELA INHUB 250-50 INHALE 1 DOSE BY 60 Each 5 09/30/2019 Active MCG/DOSE Inhalation MOUTH TWICE A DAY AEROSOL POWDER, BREATH ACTIVATED predniSONE Take 1-4 Tabs by 30 Tab 0 12/28/2019 Active (DELTASONE) 10 MG mouth Oral TabIndications: DIRECTED. Take 4 Chronic obstructive tabs x 3 days, 3 pulmonary disease tabs x 3 days, 2 with acute tabs x 3 days, 1 exacerbation (HCC) tab x 3 days doxycycline Take 1 Tab by 20 Tab 0 12/28/2019 01/07/2020 Active (VIBRAMYCIN) 100 MG mouth TWICE DAILY Oral TabIndications: for 10 days. Chronic obstructive pulmonary disease with acute exacerbation (HCC) documented as of this encounter (statuses as of 12/28/2019) Active Problems Problem Noted Date COPD, very severe 08/23/2017 BRITNEY on CPAP 04/08/2017 Depression 08/29/2012 BMI 26.0-26.9,adult 04/10/2011 Overview: This patient's BMI has been calculated and is above average, and BMI management plan is completed. General patient education discussion including: weight loss link to reduction of risk factors for car diac and other diseases, importance of long-term maintenance treatment in weight loss and is managed by self. Insomnia 03/17/2008 Panic attacks 03/17/2008 Panlobular emphysema 11/09/2005 Other and unspecified ovarian cyst 10/26/2005 Essential hypertension documented as of this encounter (statuses as of 12/28/2019) Resolved Problems Problem Noted Date Resolved Date BMI 25.0-25.9,adult 04/20/2011 08/27/2011 Overview: This patient's BMI has been calculated and is above average, and BMI management plan is completed. General patient education discussion including: weight loss link to reduction of risk factors for car diac and other diseases, importance of long-term maintenance treatment in weight loss and is managed by self. 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 Nicotine dependence 06/16/2009 04/10/2011 Cholelithiasis 06/16/2009 08/29/2012 Other follow-up examination(V67.59) 06/09/2008 03/08/2010 Unspecified staphylococcus infection in conditions classified 03/17/200809/2010 elsewhere and of unspecified site Calculus of gallbladder without mention of cholecystitis or 01/15/20082011 obstruction Malignant neoplasm of other specified sites of pancreas 12/17/2007 03/08/2010 Other postprocedural status(V45.89) 06/17/2007 03/08/2010 Personal history of malignant neoplasm of other site in 08/28/2006 03/08/2010 gastrointestinal tract Unspecified pleural effusion 05/23/2006 03/08/2010 Other specified disorders of adrenal glands 05/23/2006 10/31/2012 Other specified disorders of liver 05/23/2006 08/29/2012 Malignant neoplasm of pancreas, part unspecified 05/23/2006 08/29/2012 Cellulitis and abscess of unspecified site 12/29/2005 03/08/2010 Peritoneal abscess 12/20/2005 03/08/2010 Neoplasm of unspecified nature of respiratory system 11/21/2005 08/29/2012 Neoplasm of uncertain behavior of other and unspecified 11/15/2005 03/08/2010 digestive organs Cough 11/09/2005 03/08/2010 Unspecified disease of pancreas 10/26/2005 04/10/2011 Other diseases of lung, not elsewhere classified 10/26/2005 04/10/2011 documented as of this encounter (statuses as of 12/28/2019) Immunizations Name Administration Dates Next Due Influenza (IM) Preservative Free 07/27/2019, 08/23/2017, 08/23/2009 Influenza Vaccine Whole 08/29/2007 PNEUMOCOCCAL POLYSACCHARIDE VACCINE 11/28/2016 documented as of this encounter Social History Tobacco Use Types Packs/Day Years Used Date Former Smoker Cigarettes 0.25 27 Quit: 09/23/2018 Smokeless Tobacco: Never Used Comments: 1 week before 2016 Alcohol Use Drinks/Week oz/Week Comments Yes 2-3 Cans of beer 2.0 - 3.0 Sex Assigned at Date Recorded Not on file documented as of this encounter Last Filed Vital Signs Vital Sign Reading Time Taken Comments Blood Pressure 152/90 12/28/2019 10:45 AM EST Pulse 120 12/28/2019 10:45 AM EST Temperature 37.3 12/28/2019 10:45 AM EST C (99.1 F) Respiratory Rate - - Oxygen Saturation 91% 12/28/2019 11:34 AM EST on O2 Inhaled Oxygen Concentration - - Weight 64.4 kg (142 lb) 12/28/2019 10:45 AM EST Height 170.2 cm (5' 7") 12/28/2019 10:45 AM EST Body Mass Index 22.24 12/28/2019 10:45 AM EST documented in this encounter Patient Instructions Patient InstructionsMarianela Duque FNP - 12/28/2019 10:40 AM ESTRest Fluids Steam may help loosen congestion Mucinex thins mucus Medication as directed salt water gargle as needed for sore/scratchy throat Call if symptoms fail to resolve or worsen documented in this encounter Progress Notes Marianela Duque FNP - 12/28/2019 10:40 AM EST PATIENT: Elisa Carpenter : 1960 DATE OF SERVICE: 12/28/2019 CHIEF COMPLAINT: Chief Complaint Patient presents with ? Cough x5 days ? Sinus Problem x10 days Subjective HISTORY OF PRESENT ILLNESS: Elisa Carpenter is a 59-y.o. female. HPI URI x for past 10 days - sinus pain initially, increased cough,SOB, headache x 5 days. Used OTC meds- started to get better but sx worsened Past Medical History: Diagnosis Date ? BMI 25.0-25.9,adult 04/20/2011 ? Cervical dysplasia 1994 hystectomy ? Cold sore ? Colon polyp 06/04/2011 hyperplastic --5 years with tics and rhoids. 2017 normal 5 year. ? COPD (chronic obstructive pulmonary disease) (HCC) ? Gall stone s/p cholecystectmy 06/2011 ? Hyperglycemia ? Nicotine dependence ? BRITNEY (obstructive sleep apnea) ? Panic attacks 03/17/2008 ? Postmenopausal ? Smoker ? Snoring ? Unspecified essential hypertension ? Unspecified staphylococcus infection in conditions classified elsewhere and of unspecified site 03/17/2008 S/P SURGERY Family History Problem Relation Age of Onset ? Hypertension Mother ? Diabetes Father ? Hypertension Father ? Diabetes Maternal Grandmother Current Outpatient Medications Medication Sig ? albuterol (PROVENTIL, VENTOLIN) (2.5 MG/3ML) 0.083% Inhalation Nebu Soln 3 mL by Inhalation-SVN route EVERY FOUR HOURS NEEDED (wheezing). ? cetirizine (ZYRTEC) 10 MG Oral Tab Take 1 Tab by mouth DAILY. ? diclofenac (VOLTAREN) 1 % Transdermal Gel 2 g by Topical route FOUR TIMES DAILY. Take as directed ? diltiazem (CARDIZEM) 30 MG Oral Tab TAKE 1 TABLET BY MOUTH TWICE DAILY ? doxycycline (VIBRAMYCIN) 100 MG Oral Tab Take 1 Tab by mouth TWICE DAILY for 10 days. ? Omeprazole delayed rel cap 20 MG Oral CAPSULE DELAYED RELEASE Take 20 mg by mouth DAILY. ? predniSONE (DELTASONE) 10 MG Oral Tab Take 1-4 Tabs by mouth DIRECTED. Take 4 tabs x 3 days, 3 tabs x 3 days, 2 tabs x 3 days, 1 tab x 3 days ? SPIRIVA HANDIHALER 18 MCG Inhalation Cap INHALE CONTENTS OF 1 CAPSULE BY MOUTH ONCE DAILY ? VENTOLIN HFA 108 (90 Base) MCG/ACT Inhalation Aero Soln INHALE 2 PUFFS BY MOUTH EVERY 4 HOURS NEEDED FOR WHEEZE ? WIXELA INHUB 250-50 MCG/DOSE Inhalation AEROSOL POWDER, BREATH ACTIVATED INHALE 1 DOSE BY MOUTH TWICE A DAY ? zolpidem (AMBIEN) 10 MG Oral Tab Take 1 Tab by mouth EVERY BEDTIME NEEDED for sleep/insomnia. No current facility-administered medications for this visit. Allergies Allergen Reactions ? Biaxin [Clarithromycin] RECREATION SPECIALIST Reaction ? Percocet [Oxycodone W/ Acetaminophen] Rash THROAT CLOSING ? Wellbutrin [Bupropion Hcl] Rash Social History Socioeconomic History ? Marital status: Spouse name: Not on file ? Number of children: Not on file ? Years of education: Not on file ? Highest education level: Not on file Occupational History ? Not on file Social Needs ? Financial resource strain: Not on file ? Food insecurity Worry: Not on file Inability: Not on file ? Transportation needs Medical: Not on file Non-medical: Not on file Tobacco Use ? Smoking status: Former Smoker Packs/day: 0.25 Years: 27.00 Pack years: 6.75 Types: Cigarettes Last attempt to quit: 09/23/2018 Years since quittin.2 ? Smokeless tobacco: Never Used ? Tobacco comment: 1 week before 2016 Substance and Sexual Activity ? Alcohol use: Yes Alcohol/week: 2.0 - 3.0 standard drinks Types: 2 - 3 Cans of beer per week ? Drug use: No ? Sexual activity: Yes Partners: Male Lifestyle ? Physical activity Days per week: Not on file Minutes per session: Not on file ? Stress: Not on file Relationships ? Social connections Talks on phone: Not on file Gets together: Not on file Attends mormon service: Not on file Active member of club or organization: Not on file Attends meetings of clubs or organizations: Not on file Relationship status: Not on file ? Intimate partner violence Fear of current or ex partner: Not on file Emotionally abused: Not on file Physically abused: Not on file Forced sexual activity: Not on file Other Topics Concern ? Not on file Social History Narrative Works for [employer], desk job. REVIEW OF SYSTEMS: Review of Systems Constitutional: Positive for malaise/fatigue. Negative for chills and fever. HENT: Positive for congestion and sinus pain. Negative for sore throat. Respiratory: Positive for cough, sputum production and shortness of breath. Objective PHYSICAL EXAM: VITALS: BP (!) 152/90 | Pulse (!) 120 | Temp 99.1 F (37.3 C) ( Tympanic) | Ht 5' 7" (1.702 m) | Wt 142 lb (64.4 kg) | LMP (LMP Unknown) | SpO2 91% Comment: on O2 | BMI 22.24 kg/m Body mass index is 22.24 kg/m. Physical Exam Vitals signs and nursing note reviewed. HENT: Head: Normocephalic and atraumatic. Right Ear: Tympanic membrane normal. Left Ear: Tympanic membrane normal. Nose: Nose normal. Mouth/Throat: Mouth: Mucous membranes are moist. Pharynx: No posterior oropharyngeal erythema. Eyes: Extraocular Movements: Extraocular movements intact. Pupils: Pupils are equal, round, and reactive to light. Neck: Musculoskeletal: Normal range of motion. No neck rigidity. Cardiovascular: Rate and Rhythm: Normal rate and regular rhythm. Pulmonary: Effort: Pulmonary effort is normal. No respiratory distress. Breath sounds: Wheezing present. No rhonchi or rales. Comments: Distant breat sounds Chest: Chest wall: No tenderness. Lymphadenopathy: Cervical: No cervical adenopathy. Neurological: Mental Status: She is alert. ASSESSMENT / IMPRESSION: ICD-9-CM ICD-10-CM 1. Chronic obstructive pulmonary disease with acute exacerbation ([facility]) 491.21 J44.1 predniSONE (DELTASONE) 10 MG Oral Tab doxycycline (VIBRAMYCIN) 100 MG Oral Tab 2. SOB (shortness of breath) 786.05 R06.02 XR CHEST 2 VIEW PA AND LATERAL ( STANDARD) Plan Rest Fluids Steam may help loosen congestion Mucinex thins mucus Medication as directed salt water gargle as needed for sore/scratchy throat Call if symptoms fail to resolve or worsen Author: MARINA Stern 12/28/2019 11:34 documented in this encounter Plan of Treatment Date Type Specialty Care Team Description 12/28/2019 Ancillary Procedure Radiology SOB (shortness of breath) 12/31/2019 Office Visit Family Practice Stevenson Carmichael MD [address] [place] [address] [phone] 02/10/2020 Appointment Pulmonary 02/10/2020 Office Visit Pulmonary Von Serna MD [address] [address] Name Type Priority Associated Diagnoses Date/Time XR CHEST 2 VIEW PA Imaging Routine SOB (shortness of 12/28/2019 11:12 AM EST AND LATERAL breath) (STANDARD) Name Type Priority Associated Diagnoses Order Schedule XR CHEST 2 VIEW PA Imaging Routine SOB (shortness of 1 Occurrences starting AND LATERAL breath) 12/28/2019 until (STANDARD) 12/27/2020 Health Maintenance Due Date Last Done Comments DTaP/Tdap/Td Vaccines (1 - 01/20/1971 Tdap) ZOSTER IMMUNIZATION SERIES 01/20/2010 (1 of 2) MAMMOGRAM (SCREENING) 02/19/2020 02/18/2019, 07/24/2017, 04/20/2016, Additional history exists LIPID DISORDER SCREENING 02/24/2020 02/23/2019, 04/20/2016 DEPRESSION SCREENING 04/14/2020 04/14/2019 Colonoscopy 04/22/2022 04/22/2017, 05/11/2016 (Postponed), 06/04/2011, Additional history exists PNEUMOCOCCAL 0-64 YRS Completed 11/28/2016 INFLUENZA VACCINE Completed 07/27/2019, 08/23/2017, 08/23/2009, Additional history exists HEPATITIS A IMMUNIZATION Aged Out No longer eligible SERIES based on patient's age to complete this topic HPV IMMUNIZATION SERIES Aged Out No longer eligible based on patient's age to complete this topic MENINGOCOCCAL VACCINE IMM Aged Out No longer eligible based on patient's age to complete this topic documented as of this encounter Goals Goal Patient Goal Associated Recent Patient-Stated? Author Type Problems Progress Blood Pressure Blood Pressure 152/90 No Jany, < 140/90 (12/28/2019 MD Stevenson 10:45 AM EST) Note: This is an individualized treatment (blood pressure) goal for Elisa Carpenter: Displayed above (on the left) is your goal for blood pressure control. Your most recent blood pressure is also shown above, on the right. You should try to achieve blood pressures that are lower than your goal listed above (on the left). Smoking Cessation COPD No Stevenson Carmichael MD Note: This is an individualized treatment (COPD) goal for Elisa Carpenter: Quit smoking immediately! Your provider has information and resources that may help you to quit. Depression screen (PHQ-9) total score < 5 Depression No Stevenson Carmichael MD Note: This is an individualized treatment (depression) goal for Elisa Carpenter: Displayed above is your goal for a depression screening (PHQ-9) score that would indicate good control of your depression. Lifestyle - Current Smoker Lifestyle No Stevenson Carmichael MD Note: 1. Set a quit date 2. Use of medications-talk with doctor about current medications for nicotine replacement (patch, gum, lozenges, varenicline, buprupion) 3. Gradually reduce the number of cigarettes daily. This will help to eventually stop. 4. Connect to behavior counseling-State Quit lines (MV-[phone] or [facility]- [phone]), stop smoking groups-[facility] or Keep a regular sleep schedule Lifestyle No Stevenson Carmichael MD Note: This is an individualized lifestyle goal for Elisa Carpenter: Please maintain a regular sleep schedule. This may help with some symptoms of depression. Keep immunizations current Lifestyle No Stevenson Carmichael MD Note: This is an individualized lifestyle goal for Elisa Carpenter: Please be sure to keep up-to-date on recommended immunizations. For example, this would include a yearly influenza vaccine. Immunization status can be seen by looking at the Health Maintenance sections of your e[employer], Plan of Care, and any After Visit Summaries. Take all prescribed medications as directed Self-management No Stevenson Carmichael MD Note: This is an individualized self-management goal for Elisa Carpenter: Please take all prescribed medications as directed. 1. Do not skip doses. If you cannot afford your medications, talk with your doctor. 2. Use a pill reminder system such as a pill box if needed. Your pharmacist can help you with this. 3. Contact your Pharmacy 5 days before your medication runs out. If you cannot take your medications for any reasons, talk with your doctor. 4. Please bring all of your medication bottles and inhalers (or a list of all your medications/inhalers) with you to every visit. Potential barriers to meeting all of your care plan goals will continue to be addressed on an ongoing basis. documented as of this encounter Results Not on filedocumented in this encounter Visit Diagnoses Diagnosis SOB (shortness of breath) Shortness of breath Diagnosis SOB (shortness of breath) Shortness of breath Chronic obstructive pulmonary disease with acute exacerbation (HCC) Obstructive chronic bronchitis with exacerbation documented in this encounter Insurance Payer Benefit Plan / Subscriber ID Effective Dates Phone Address Type Group NESSA HICKEY [id number] 2014-Present Nessa Guarantor Name Account Type Relation to Date of Phone Billing Patient Address Ralf Carpenterine Keith Personal/Family 1960 [address] (Home) [address] [phone] [place], [place] (Work) [id number] documented as of this encounter
--- NOTE | 2019-12-31 14:11 | ED ---
Respiratory - HPI Summary HPI Summary: 59 year old F arriving via private car to [facility] presents with nonproductive cough, congestion, rhinorrhea, myalgia, shortness of breath, mild headache, dizziness, nausea, vomiting x2 weeks. Patient denies any fever, chills, erythema of eyes, sore throat, chest pain, abdominal pain, dysuria, hematuria, edema, rash. The patient rates the pain 2/10 in severity. Symptoms aggravated by nothing. Symptoms alleviated by nothing. Patient states her primary care provider placed her on inhaler and steroids on Wednesday 12/27. She is not feeling better. She has also been on doxycycline. No known sick contact. Medications reviewed. Allergies noted. Home Medications Medication Instructions Recorded Confirmed Type Albuterol HFA INHALER* [Ventolin 1 - 2 puff INH Q4H PRN 11/27/16 12/31/19 History HFA Inhaler*] Tiotropium CAPSULE (NF) [Spiriva 1 cap.inh INH DAILY 11/27/16 12/31/19 History CAPSULE (NF)] Levalbuterol 0.63MG/3ML NEB* 0.63 mg INH [id number] AWAKE 12/17/18 12/31/19 Rx [Xopenex 0.63MG/3ML NEB*] #120 neb.soln Albuterol 2.5MG/3ML (0.083%)* 2.5 mg INH Q4H #60 neb.familia 12/31/19 Rx [Ventolin 2.5 MG/3 ML NEB.FAMILIA*] Albuterol HFA INHALER* [Ventolin 1 puff INH Q4H PRN #1 mdi 12/31/19 Rx HFA Inhaler*] Azithromycin TAB* [Zithromax TAB 2 tab PO .TODAY, THEN 1 DAILY #1 12/31/19 Rx (Z-REVA) 250 mg #6 tabs] reva Diltiazem TAB* [Cardizem 30 MG 30 mg PO BID 12/31/19 12/31/19 History Tab*] Fluticasone Propion/Salmeterol 1 puff INH BID 12/31/19 12/31/19 History [Wixela 250-50 Inhub] Ondansetron ODT TAB* [Zofran 4 MG 4 mg PO Q8H PRN #10 tab.odt 12/31/19 Rx Odt TAB*] predniSONE 50 mg TAB [Deltasone 50 50 mg PO DAILY #4 tab 12/31/19 Rx mg TAB] - History of Current Complaint Chief Complaint: EDShortnessOfBreath Stated Complaint: FLU SYMPTOMS PER PT Hx Obtained From: Patient Onset/Duration: Lasting Weeks - 2, Still Present Current Severity: Mild Pain Intensity: 2 Sputum Amount: None Aggravating Factor(s): Nothing Alleviating Factor(s): Nothing - Allergy/Home Medications Allergies/Adverse Reactions: Allergies Allergy/AdvReac Type Severity Reaction Status Date / Time bupropion Allergy Intermediate Hives Verified 12/31/19 13:56 oxycodone Allergy Intermediate Swelling Verified 12/31/19 13:56 Of Face,Lips,& Throat clarithromycin [From Biaxin] Allergy Headache Verified 12/31/19 13:56 Home Medications: Home Medications Albuterol HFA INHALER* [Ventolin HFA Inhaler*] 1 - 2 puff INH Q4H PRN 11/27/16 [ History Confirmed 12/31/19] Tiotropium CAPSULE (NF) [Spiriva CAPSULE (NF)] 1 cap.inh INH DAILY 11/27/16 [ History Confirmed 12/31/19] Levalbuterol 0.63MG/3ML NEB* [Xopenex 0.63MG/3ML NEB*] 0.63 mg INH RT.Q6HR- WHILE AWAKE #120 neb.soln 12/17/18 [Rx Confirmed 12/31/19] Albuterol 2.5MG/3ML (0.083%)* [Ventolin 2.5 MG/3 ML NEB.FAMILIA*] 2.5 mg INH Q4H # 60 neb.familia 12/31/19 [Rx] Albuterol HFA INHALER* [Ventolin HFA Inhaler*] 1 puff INH Q4H PRN #1 mdi [Rx] Azithromycin TAB* [Zithromax TAB (Z-REVA) 250 mg #6 tabs] 2 tab PO .TODAY, THEN 1 DAILY #1 reva 12/31/19 [Rx] Diltiazem TAB* [Cardizem 30 MG Tab*] 30 mg PO BID 12/31/19 [History Confirmed ] Fluticasone Propion/Salmeterol [Wixela 250-50 Inhub] 1 puff INH BID 12/31/19 [ History Confirmed 12/31/19] Ondansetron ODT TAB* [Zofran 4 MG Odt TAB*] 4 mg PO Q8H PRN #10 tab.odt [Rx] predniSONE 50 mg TAB [Deltasone 50 mg TAB] 50 mg PO DAILY #4 tab 12/31/19 [Rx] PMH/Surg Hx/FS Hx/Imm Hx Endocrine/Hematology History: Denies: Hx Diabetes Cardiovascular History: Reports: Hx Hypertension Respiratory History: Reports: Hx Asthma, Hx Chronic Obstructive Pulmonary Disease (COPD), Hx Seasonal Allergies, Hx Sleep Apnea - CPAP GI History: Reports: Hx Gall Bladder Disease, Other GI Disorders - pancreatic ca Musculoskeletal History: Reports: Hx Arthritis Sensory History: Reports: Hx Contacts or Glasses Denies: Hx Hearing Aid Opthamlomology History: Reports: Hx Contacts or Glasses Psychiatric History: Reports: Hx Anxiety, Hx Depression - Cancer History Cancer Type, Location and Year: pancreatic ca 2005 - Surgical History Surgery Procedure, Year, and Place: partial pancreatectomy; partial hysterectomy ; spleenectomy; cholecystectomy Infectious Disease History: No Infectious Disease History: Denies: Hx Clostridium Difficile, Hx Hepatitis, Hx Human Immunodeficiency Virus (HIV), Traveled Outside the [place] in Last 30 Days - Family History Known Family History: Positive: Hypertension - Social History Alcohol Use: Rare Hx Substance Use: No Substance Use Type: Reports: None Substance Use Comment - Amount & Last Used: CBD Oil Hx Tobacco Use: Yes Smoking Status (MU): Light Every Day Tobacco Smoker Type: Cigarettes Amount Used/How Often: 8-10 cigarettes a day Review of Systems Negative: Fever, Chills Negative: Erythema Positive: Other - congestion, rhinorrhea. Negative: Sore Throat Negative: Chest Pain Positive: Shortness Of Breath, Cough Positive: Vomiting, Nausea. Negative: Abdominal Pain, Diarrhea Negative: dysuria, hematuria Positive: Myalgia. Negative: Edema Negative: Rash Neurological/Mental Status: Other - Dizziness Positive: Headache Physical Exam - Summary Physical Exam Summary: Constitutional: Well-developed, Well-nourished, Alert. (-) Distressed Skin: Warm, Dry HENT: Normocephalic; Atraumatic Eyes: Conjunctiva normal Neck: Musculoskeletal ROM normal neck. (-) JVD, (-) Stridor, (-) Tracheal deviation Cardio: Rhythm regular, rate normal, Heart sounds normal; Intact distal pulses; The pedal pulses are 2+ and symmetric. Radial pulses are 2+ and symmetric. (-) Murmur Pulmonary/Chest wall: Effort normal. (-) Respiratory distress, She has rhonchi in the right lower lung field and wheezes Abd: Soft, (-) tenderness, (-) Distension, (-) Guarding, (-) Rebound Musculoskeletal: (-) Edema Lymph: (-) Cervical adenopathy Neuro: Alert, Oriented x3 Psych: Mood and affect Normal Triage Information Reviewed: Yes Vital Signs On Initial Exam: Initial Vitals Temp Pulse Resp BP Pulse Ox 99.0 F 120 18 145/96 85 12/31/19 13:25 12/31/19 13:25 12/31/19 13:25 12/31/19 13:25 12/31/19 13:25 Vital Signs Reviewed: Yes Procedures - Sedation Patient Received Moderate/Deep Sedation with Procedure: No Diagnostics - Vital Signs Vital Signs Temp Pulse Resp BP Pulse Ox 12/31/19 13:48 121 82 12/31/19 13:25 99.0 F 120 18 145/96 85 - Laboratory Result Diagrams: 12/31/19 15:58 12/31/19 15:58 Lab Statement: Any lab studies that have been ordered have been reviewed, and results considered in the medical decision making process. - Radiology CXR Radiology Interpretation Completed By: ED Physician - IMPRESSION: HYPERINFLATION. PATCHY AIRSPACE DISEASE OF THE RIGHT LUNG BASE. ED physician has reviewed this imaging report. - EKG 1541 Cardiac Rate: NL - 96 BPM EKG Rhythm: Sinus Rhythm Summary of EKG Findings: No STEMI. ED physician has reviewed and interpreted this EKG Re-Evaluation - Re-Evaluation First Eval Re-Evaluation Time: 18:27 Change: Improved Comment: patient is feeling much better Second Eval Re-Evaluation Time: 18:35 Change: Worse Comment: patient went to stand up and ambulate. she desaturated down to 55% with good wave form. felt like she was going to pass out. turned bee. says she lives alone. Disposition - Course Course Of Treatment: 59 y/o F presents with nonproductive cough, congestion, rhinorrhea, myalgia, shortness of breath, mild headache, dizziness, nausea, vomiting x2 weeks. Her PCP put her on inhaler and steroids on Wednesday 12/27. She is not feeling better. She has also been on doxycycline. No known sick contact. Upon physical exam, she has rhonchi in the right lower lung field and wheezes. Bloodwork results with no significant abnormalities except for WBC 11.8, RBC 5.19, absolute neuts 8.8, absolute mono 0.9, chloride 98, carbon dioxide 39, glucose 126, lactic acid 0.4, AST 12. An EKG shows NSR 96 BPM and no STEMI. CXR shows HYPERINFLATION. PATCHY AIRSPACE DISEASE OF THE RIGHT LUNG BASE. In the ED course, the patient was given Tylenol, azithromycin, Duoneb, Decadron, normal saline fluids, Zofran. Upon reeval, the patient is feeling much better. She states her HR is always in 100s and 110s. She is oxygenating well on her baseline supplemental oxygen. No evidence of sepsis. Patient went to stand up and ambulate before discharge and desaturated down to 55% with good wave form. She felt like she was going to pass out. She turned bee. She says she lives alone. Spoke with Dr. Hardy. She agrees to admit patient. - Diagnoses Provider Diagnoses: Community acquired pneumonia, Right lower lobe pneumonia - Physician Notifications Discussed Care Of Patient With: Buffy Hardy Time Discussed With Above Provider: 18:40 Instructed by Provider To: Admit As Inpatient Discharge ED - Sign-Out/Discharge Documenting (check all that apply): Patient Departure - Discharge Plan Condition: Stable Disposition: ADMITTED TO [facility] Prescriptions: Albuterol 2.5MG/3ML (0.083%)* [Ventolin 2.5 MG/3 ML NEB.FAMILIA*] 2.5 mg INH Q4H # 60 neb.familia Albuterol HFA INHALER* [Ventolin HFA Inhaler*] 1 puff INH Q4H PRN #1 mdi PRN Reason: Wheezing Azithromycin TAB* [Zithromax TAB (Z-REVA) 250 mg #6 tabs] 2 tab PO .TODAY, THEN 1 DAILY #1 reva Ondansetron ODT TAB* [Zofran 4 MG Odt TAB*] 4 mg PO Q8H PRN #10 tab.odt PRN Reason: Nausea predniSONE 50 mg TAB [Deltasone 50 mg TAB] 50 mg PO DAILY #4 tab Patient Education Materials: Community Acquired Pneumonia (ED) Referrals: Stevenson Carmichael MD [Primary Care Provider] - 3 Days Additional Instructions: Please follow up with your primary care provider in 3 days. Return to the Emergency Department for changing or worsening symptoms. - Attestation Statements Document Initiated by Scribe: Yes Documenting Scribe: Phyllis Stafford Provider For Whom Scribe is Documenting (Include Credential): Hector Quiroz MD Scribe Attestation: IPhyllis, scribed for Hector Quiroz MD on 12/31/19 at 1839. Status of Scribe Document: Ready
[2019-12-31] MEDS ORDERED: Albuterol/Ipratropium NEB.SOL* Albuterol 2.5 MG/Ipratropium 0.5 MG 3 ML INH ONE ×2 (15:31→18:41)
[2019-12-31] MEDS ORDERED: Dexamethasone IV* 4 MG/ML 1 ML (4 MG) IV SLOW PU ONE (15:36)
[2019-12-31] MEDS ORDERED: Dexamethasone IV* 4 MG/ML 1 ML (4 MG) ONE (16:07)
[2019-12-31 16:08] LABS: ABS Basophils 0.1 10^3/ul (0-0.2); ABS Monocytes 0.9 10^3/ul (0-0.8); ABS Neutrophils 8.8 10^3/ul (1.5-7.7); Eosinophil % 0.3 %; Hematocrit 47 % (35-47); Hemoglobin 15.4 g/dL (12.0-16.0); Mean Corpuscular HGB Conc 33 g/dL (31-36); Mean Corpuscular Hemoglobin 30 pg (27-31); Mean Corpuscular Volume 91 fL (80-97); Mean Platelet Volume 10.3 fL (7.4-10.4); Nucleated Red Blood Cells % 0.1; Platelet Count 243 10^3/uL (150-450); Red Blood Count 5.19 10^6 /uL (3.70-4.87); Red Cell Distribution Width 14 % (10-15); White Blood Count 11.8 10^3/uL (3.5-10.8)
[2019-12-31] MEDS ORDERED: NS 0.9% 1000 ML** 2,000 ML IV ONE (16:12)
[2019-12-31 16:16] LABS: Activated Partial Thrombo Time 29.4 seconds (26.0-38.0); INR 0.97 (0.82-1.09)
[2019-12-31] MEDS ORDERED: Ondansetron ODT TAB* 4 MG SL ONE (16:21)
[2019-12-31] MEDS ORDERED: Acetaminophen TAB* 325 MG PO ONE (16:21)
[2019-12-31 16:30] LABS: Albumin 3.8 g/dL (3.2-5.2); Albumin/Globulin Ratio 1.4 (1-3); BUN/Creatinine Ratio 19.1 (8-20); Calcium 9.2 mg/dL (8.6-10.3); EGFR African American 107.2 (>60); EGFR Non-African American 88.6 (>60); Globulin 2.7 g/dL (2-4); Potassium 3.8 mmol/L (3.5-5.0); Total Bilirubin 0.3 mg/dL (0.2-1.0); Total Protein 6.5 g/dL (6.4-8.9)
[2019-12-31 17:54] LABS: Influenza A Molecular Negative (Negative); Influenza B Molecular Negative (Negative)
[2019-12-31] MEDS ORDERED: Azithromycin TAB* 250 MG PO ONE (18:22)
[2019-12-31] MEDS ORDERED: cefTRIAXone(*) 1 GM in NS 0.9% 50 ML* 50 ML IVPB ONE (18:38)
[2019-12-31] MEDS ORDERED: Al Hydrox/Mg Hydrox/Simet LIQ* 30 ML UDC PO PRN (19:24)
[2019-12-31] MEDS ORDERED: Ondansetron INJ* 2 MG/ML VIAL IV PRN (19:24)
[2019-12-31] MEDS ORDERED: Albuterol HFA INHALER* 8 gm MDI INH PRN (19:29)
[2019-12-31] MEDS: NS 0.9% 1000 ML** 1,000 ML IV SCH (21:48)
[2019-12-31] MEDS: Mometasone/Formoter 200/5 MDI INH SCH (21:49)
[2019-12-31] MEDS: Lactobacillus Acidophilus* 1 TAB PO SCH (21:49)
[2019-12-31] MEDS: Diltiazem TAB* 30 MG PO SCH (21:49)
[2019-12-31] MEDS: Enoxaparin(*) 40 MG/0.4 ML SYR SUBCUT SCH (21:51)
[2019-12-31 22:56] LABS: Urine Appearance Cloudy; Urine Bilirubin Negative (Negative); Urine Blood Negative (Negative); Urine Color Yellow; Urine Glucose 3+(>=500 mg/dL) (Negative); Urine Ketones Trace (Negative); Urine Nitrite Negative (Negative); Urine Protein 1+(30 mg/dL) (Negative); Urine Specific Gravity 1.016 (1.010-1.030); Urine Urobilinogen Negative (Negative)
[2019-12-31] MEDS: Albuterol 2.5 MG/3 ML NEB.SOL* (0.083%) INH SCH (23:00)
[2019-12-31 23:03] LABS: Urine Bacteria Absent (Absent); Urine Red Blood Cell Absent (Absent); Urine Squamous Epithelial Cell Present (Absent); Urine White Blood Cell Trace(0-5/hpf) (Absent)
--- NOTE | 2019-12-31 23:25 | HP ---
CC: Dr. Carmichael* ADMISSION HISTORY AND PHYSICAL: DATE OF ADMISSION: 12/31/19 ATTENDING PHYSICIAN WHILE IN THE HOSPITAL: Dr. Filemon Godwin* (dictated by RITA Rios). PRIMARY CARE PROVIDER: Dr. Carmichael. CHIEF COMPLAINT: Worsening shortness of breath. HISTORY OF PRESENT ILLNESS: Elisa Carpenter is a 59-year-old white male with past medical history significant for COPD, on chronic 5 L of oxygen at home; hypertension; BRITNEY, on CPAP; history of pancreatic cancer; and prediabetes, who presents to the emergency department due to progressive shortness of breath despite outpatient therapy. The patient started having sore throat and nasal congestion 1 week ago. As this continued, she started to have worsening shortness of breath. On Saturday, she went to see one of the providers at her primary care office, who was concerned for COPD exacerbation and started her on doxycycline and prednisone. Despite this her shortness of breath did continue to get worse. She tells me that she is normally short of breath at baseline, but not typically at rest and this has been a new occurrence for her. She notes that she did have 1 episode of chest pain when she was feeling short of breath last night, but she believes this is attributed to her panic attack. She denies fevers or chills. She typically has clear sputum with her chronic cough and in the last several days it has been a thicker sputum, which is yellow in color. Her cough is overall unchanged. She mentioned that when she started taking the doxycycline few days ago, she started having diarrhea and abdominal pain, but denies blood in her bowel movements and nausea. PAST MEDICAL HISTORY: 1. COPD, on 5 L oxygen at home. 2. Hypertension. 3. BRITNEY, on CPAP with oxygen overnight. 4. Pancreatic cancer approximately 15 years ago, status post partial pancreatectomy. 5. Anxiety. 6. Depression. 7. Prediabetes. 8. History of alcohol use over 30 years ago. PAST SURGICAL HISTORY: 1. Partial pancreatectomy. 2. Partial hysterectomy, the ovary is still intact. 3. Splenectomy. 4. Cholecystectomy. HOME MEDICATIONS: 1. Fluticasone/formoterol inhaler 1 puff inhaled b.i.d. 2. Spiriva 1 cap inhaled daily. 3. Levalbuterol nebulizer 0.63 mg inhaled q.6 hours while awake. 4. Albuterol rescue inhaler 1 or 2 puffs inhaled q.4 hours p.r.n. shortness of breath/wheezing. 5. Prednisone 20 mg p.o. daily. 6. Doxycycline 100 mg p.o. b.i.d. x10 days. 7. Diltiazem 30 mg p.o. b.i.d. 8. Zofran 4 mg p.o. q.8 hours p.r.n., nausea. ALLERGIES: 1. Hives to BUPROPION. 2. Swelling of lips, face, and throat to OXYCODONE. 3. Headache to CLARITHROMYCIN. FAMILY HISTORY: Father is living with diabetes, coronary artery disease, and hypertension. Mother is living with a history of diabetes. SOCIAL HISTORY: The patient has 2 children. She is but they are . She is a retired employee of [employer]. She still smokes. She has been smoking for approximately 40 years at approximately 1 pack per day, but more recently has been smoking approximately 5 cigarettes per week. She denies alcohol use, though does have a prior alcohol use disorder over 30 years ago and she was a daily drinker at that time and she denies illicit drug use. The patient's son Mariela Carpenter is her surrogate medical decision maker should she need one. His phone number is [phone]. REVIEW OF SYSTEMS: An 11-point review of systems was completed and all pertinent positives and negatives are above in the HPI. All other systems are negative. PHYSICAL EXAMINATION GENERAL: White female appears older than stated age, sitting upright in hospital bed appearing comfortable, in no acute distress. VITAL SIGNS: The patient's vitals when she arrived to the emergency department , temperature 99.0 degrees Fahrenheit, heart rate 120, respiratory rate 18, oxygen saturation 85% on 5 L, later 99% on 6 L, desaturation to 58% with ambulation, blood pressure 145/96. HEENT: Eyes: PERRL. Sclerae anicteric. ENT: Lips appear dry. LUNGS: Scattered, diffuse, faint wheezing without rhonchi or crackles. Not breathing with accessory muscles. CARDIO: Regular rate and rhythm without murmurs, rubs, or gallops. ABDOMEN: Soft, nontender, nondistended. EXTREMITIES: No clubbing, cyanosis, or edema. NEURO: The patient is alert and oriented x3. No focal deficits. PSYCH: The patient is cooperative and pleasant. DIAGNOSTIC STUDIES/LAB DATA: White blood cell count 11.8, hemoglobin 15.4, hematocrit 47, platelet count 243. Sodium 142, potassium 3.8, chloride 98, carbon dioxide 39, BUN 13, creatinine 0.68, glucose 126, lactic acid 0.4. Influenza A and B negative. Chest x-ray: Per Radiology report hyperinflation with patchy airspace disease of the right lung base. Per my read, I questioned if the right lung base has an infiltrate. EK beats per minute, sinus tachycardia. No ST elevations or depressions. ASSESSMENT AND PLAN: Elisa Carpenter is a 59-year-old white female with past medical history significant for chronic obstructive pulmonary disease, on 5 L continuous oxygen at home; hypertension; obstructive sleep apnea; anxiety; pancreatic cancer, status post partial pancreatectomy, who presented to the emergency department for worsening shortness of breath, despite outpatient therapy for chronic obstructive pulmonary disease exacerbation. The patient will be admitted inpatient for: 1. Acute on chronic hypoxic respiratory failure. The patient appears to have a chronic obstructive pulmonary disease exacerbation that could be due to a combination of viral upper respiratory illness as well as her continued smoking. I do question if the patient has underlying pneumonia. There is questionable consolidation in the right lung base though the radiologist has never reported this. She has already received 3 days of doxycycline at home. She did receive IV azithromycin in the hospital today and I will continue additional dose of doxycycline tomorrow. I believe that after tomorrow a 5-day course is sufficient and continue to monitor her for signs of infection. She does have leukocytosis; however, I believe this is secondary to several days of prednisone that she has been taking for outpatient. I will be giving her 50 mg of prednisone daily as well as scheduled DuoNeb. We did discuss smoking cessation and she is interested in nicotine patch, which I will start tomorrow morning. I will continue her on Spiriva and Wixela. 2. Tachycardia. Has previously sinus tachycardia in the setting of diarrhea and likely without acute illness. The patient already received 2 L of fluid in the emergency department. I will continue normal saline at 100 cc per hour. She has been having a kidney injury at this time. 3. Diarrhea. This is likely secondary to doxycycline. I will order probiotic and continue to monitor this. I have no concerns for acute at this time. 4. Hypertension. The patient is on diltiazem. I will continue this. 5. Obstructive sleep apnea. The patient brought her home CPAP and I will order for this to be continued overnight with continuation of oxygen. She should be using oxygen with her CPAP as prescribed. 6. Prediabetes. The patient tells me she is prediabetic and I will check a hemoglobin A1c. 7. FEN: The patient may have a regular unrestricted diet. Fluids as previously mentioned and electrolytes without need for repletion. 8. DVT prophylaxis: The patient has DVT Risk Score of 2 and I will order Lovenox. 9. Code status: The patient is full code. TIME SPENT: Approximately 50 minutes was spent on this admission, approximately half the time was spent at the bedside evaluating the patient and discussing plan of care. RITA RIOS [id number]/CPS #: [id number] KENISHA
[2020-01-01] MEDS: Albuterol 2.5 MG/3 ML NEB.SOL* (0.083%) INH SCH ×5 (03:39→19:21)
[2020-01-01 07:20] LABS: Hematocrit 45 % (35-47); Hemoglobin 14.4 g/dL (12.0-16.0); Mean Corpuscular HGB Conc 32 g/dL (31-36); Mean Corpuscular Hemoglobin 30 pg (27-31); Mean Corpuscular Volume 92 fL (80-97); Mean Platelet Volume 11.5 fL (7.4-10.4); Platelet Count 219 10^3/uL (150-450); Red Blood Count 4.88 10^6 /uL (3.70-4.87); Red Cell Distribution Width 14 % (10-15); White Blood Count 11.3 10^3/uL (3.5-10.8)
[2020-01-01 07:21] LABS: ABS Basophils 0.1 10^3/ul (0-0.2); ABS Lymphocytes 1.8 10^3/ul (1.0-4.8); ABS Neutrophils 8.4 10^3/ul (1.5-7.7); Lymphocyte % 15.9 %
[2020-01-01 07:28] LABS: BUN/Creatinine Ratio 23.5 (8-20); Calcium 8.9 mg/dL (8.6-10.3); EGFR African American 107.2 (>60); EGFR Non-African American 88.6 (>60); Potassium 4.2 mmol/L (3.5-5.0)
[2020-01-01] MEDS: Mometasone/Formoter 200/5 MDI INH SCH ×4 (08:22→19:21)
[2020-01-01] MEDS: SPIRIVA Respimat* (tiotropium) 2.5 mcg/inh Inhaler INH SCH ×3 (08:23→10:46)
[2020-01-01] MEDS: Acetaminophen TAB* 325 MG PO PRN ×2 (08:45→19:30)
[2020-01-01] MEDS: Lactobacillus Acidophilus* 1 TAB PO SCH (08:46)
[2020-01-01] MEDS: Diltiazem TAB* 30 MG PO SCH ×2 (08:46→20:01)
[2020-01-01] MEDS ORDERED: DOXYcycline IV* 100 MG in NS 0.9% 250 ML* 250 ML IVPB SCH (09:00)
[2020-01-01] MEDS: Nicotine PATCH 7 MG/24 HR* PATCH TRANSDERM SCH (09:07)
[2020-01-01] MEDS ORDERED: LoraTADine TAB(NF) 10 MG TAB (AUTOSUB to CETIRIZINE) PO SCH (10:00)
[2020-01-01] MEDS: Fluticasone NASAL SPRAY 50MCG* 16 gm SPRAY BTL BOTH NARES SCH (10:32)
[2020-01-01] MEDS: Cetirizine* 10 MG TAB PO SCH (10:32)
[2020-01-01] MEDS: NS 0.9% 1000 ML** 1,000 ML IV SCH ×2 (10:32→16:05)
[2020-01-01] MEDS ORDERED: NS 0.9% 1000 ML** 1,000 ML IV ONE (14:52)
--- NOTE | 2020-01-01 15:00 | PN ---
Subjective Date of Service: 01/01/20 Interval History: C/o Headache this morning, improved after use of tylenol and flonase. Mentioned dizziness with ambulation, resolved at rest. Cough is nonproductive today. Feels SOB with exertion but feeling greatly improved at rest. Denies chest pain, fever/chills, abd pain, diarrhea. Mentions to me her outpatient local company hazmat driver, Dr. Serna at [place], has suggested pulmonary rehab to her and this has not occurred yet. Objective Active Medications: Acetaminophen (Tylenol Tab*) 975 mg PO Q6H PRN PRN Reason: PAIN - MILD Last Admin: 01/01/20 08:45 Dose: 975 mg Al Hydrox/Mg Hydrox/Simethicone (Maalox Plus*) 30 ml PO Q6H PRN PRN Reason: INDIGESTION Last Admin: 01/01/20 09:08 Dose: 30 ml Albuterol (Ventolin Hfa Inhaler*) 2 puff INH Q4H PRN PRN Reason: SHORTNESS OF BREATH Albuterol (Ventolin 2.5 Mg/3 Ml Neb.Merari*) 2.5 mg INH [id number] AWAKE [facility] Cetirizine HCl (Zyrtec*) 10 mg PO DAILY [facility] Last Admin: 01/01/20 10:32 Dose: 10 mg Diltiazem HCl (Cardizem Tab*) 30 mg PO BID [facility] Last Admin: 01/01/20 08:46 Dose: 30 mg Enoxaparin Sodium (Lovenox(*)) 40 mg SUBCUT Q24H [facility] Last Admin: 12/31/19 21:51 Dose: 40 mg Fluticasone Propionate (Flonase Nasal [place] 50mcg*) 2 spray BOTH NARES DAILY [facility] Last Admin: 01/01/20 10:32 Dose: 2 spray Sodium Chloride (Ns 0.9% 1000 Ml) 1,000 mls @ 100 mls/hr IV PER RATE [facility] Last Admin: 01/01/20 10:32 Dose: 100 mls/hr Doxycycline Hyclate 100 mg/ (Sodium Chloride) 250 mls @ 250 mls/hr IVPB Q12H [facility] Last Admin: 01/01/20 10:32 Dose: 250 mls/hr Sodium Chloride (Ns 0.9% 1000 Ml) 1,000 mls @ 0 mls/hr IV .BOLUS ONE Stop: 01/01/20 14:53 Lactobacillus Rhamnosus (Lactobacillus Acidophilus*) 1 tab PO DAILY [facility] Last Admin: 01/01/20 08:46 Dose: 1 tab Mometasone Furoate/Formoterol Fumar (Dulera 200/5 Mdi*) 2 puff INH BID [facility] Last Admin: 01/01/20 10:46 Dose: 2 puff Nicotine (Nicotine Patch 7 Mg/24 Hr*) 1 patch TRANSDERM DAILY [facility] Last Admin: 01/01/20 09:07 Dose: 1 patch Ondansetron HCl (Zofran Inj*) 4 mg IV Q4H PRN PRN Reason: NAUSEA/VOMITING Last Admin: 01/01/20 09:08 Dose: 4 mg Pharmacy Profile Note (Nicotine Patch Removal Note*) 1 note PATCH OFF 2099 [facility] Prednisone (Deltasone 50 Mg Tab) 50 mg PO DAILY [facility] Last Admin: 01/01/20 08:46 Dose: 50 mg Tiotropium [place] (Spiriva Respimat 2.5 Mcg) 2 puff INH DAILY [facility] Last Admin: 01/01/20 10:46 Dose: 2 puff Vital Signs - 8 hr 01/01/20 01/01/20 01/01/20 07:15 08:00 11:15 Temperature 98.5 F 98.3 F Pulse Rate 96 94 Respiratory 18 16 18 Rate Blood Pressure 127/65 133/71 (mmHg) O2 Sat by Pulse 98 90 90 Oximetry Oxygen Devices in Use Now: Nasal Cannula Appearance: Thin, white female who appears older than stated age, sitting upright in bed, appearing comfortable and in NAD Eyes: No Scleral Icterus, - - PERRL Ears/Nose/Mouth/Throat: Mucous Membranes Moist Neck: Trachea Midline Respiratory: Symmetrical Chest Expansion and Respiratory Effort, - - diminished breath sounds throughout without adventitious lung sounds Cardiovascular: NL Sounds; No Murmurs; No JVD, RRR Abdominal: - - abd soft/nontender/nondistended Extremities: No Edema, - - clubbing to fingers Skin: No Rash or Ulcers Neurological: Alert and Oriented x 3, NL Muscle Strength and Tone Result Diagrams: 01/01/20 06:34 01/01/20 06:26 Assess/Plan/Problems-Billing Assessment: 59 yo female with PMHx COPD on continuous 5L O2, HTN, BRITNEY on CPAP with O2, anxiety, pancreatic CA, prediabetes, presents with worsening shortness of breath despite outpatient COPD exacerbation treatment. - Patient Problems (1) Acute on chronic respiratory failure with hypoxia Current Visit: No Status: Acute Code(s): J96.21 - ACUTE AND CHRONIC RESPIRATORY FAILURE WITH HYPOXIA SNOMED Code(s): 81122757 Comment: - Secondary to COPD exacerbation, likley caused by ongoing tobacco use - at baseline 5L O2 use today, but still intermittently with significant dyspnea - continue steroids, schedule duonebs, and home inhalers - improved today - today is day 5 of doxy, will d/c - recommend following through with pulmonary rehab referral at discharge (2) Headache Current Visit: Yes Status: Acute Code(s): R51 - HEADACHE SNOMED Code(s): 35866115 Comment: -c/o headache today -likely 2/2 nasal congestion as improved greatly with flonase and zyrtec -continue prn tylenol as well (3) HTN (hypertension) Current Visit: No Status: Acute Code(s): I10 - ESSENTIAL (PRIMARY) HYPERTENSION SNOMED Code(s): 75623366 Comment: - Normotensive - Continue diltiazem (4) BRITNEY (obstructive sleep apnea) Current Visit: No Status: Acute Code(s): G47.33 - OBSTRUCTIVE SLEEP APNEA ( ADULT) (PEDIATRIC) SNOMED Code(s): 49912004 Comment: - Continue CPAP (5) Sinus tachycardia Current Visit: Yes Status: Acute Code(s): R00.0 - TACHYCARDIA, UNSPECIFIED SNOMED Code(s): 90222444 Comment: -likely 2/2 dehydration in setting of recent diarrhea, which is resolved today -gave additional IVF bolus today and will monitor for improvement -remains sinus on tele, will d/c tele (6) DVT prophylaxis Current Visit: No Status: Acute Code(s): HFH5518 - SNOMED Code(s): 509225280 Comment: - Lovenox (7) Full code status Current Visit: No Status: Acute Code(s): Z78.9 - OTHER SPECIFIED HEALTH STATUS SNOMED Code(s): 126310001 Comment: Status and Disposition: pending further improvement
[2020-01-01] MEDS: Enoxaparin(*) 40 MG/0.4 ML SYR SUBCUT SCH (20:02)
[2020-01-01] MEDS ORDERED: Nicotine Patch Removal NOTE PATCH OFF SCH (21:00)
[2020-01-02] MEDS: Albuterol 2.5 MG/3 ML NEB.SOL* (0.083%) INH SCH (01:17)
[2020-01-02] MEDS: NS 0.9% 1000 ML** 1,000 ML IV SCH (02:12)
[2020-01-02] MEDS: Acetaminophen TAB* 325 MG PO PRN (03:57)
[2020-01-02] MEDS ORDERED: Albuterol/Ipratropium NEB.SOL* Albuterol 2.5 MG/Ipratropium 0.5 MG 3 ML INH PRN (06:09)
[2020-01-02] MEDS: Fluticasone NASAL SPRAY 50MCG* 16 gm SPRAY BTL BOTH NARES SCH (07:28)
[2020-01-02] MEDS: Nicotine PATCH 7 MG/24 HR* PATCH TRANSDERM SCH (07:29)
[2020-01-02] MEDS: Lactobacillus Acidophilus* 1 TAB PO SCH (07:30)
[2020-01-02] MEDS: Diltiazem TAB* 30 MG PO SCH (07:30)
[2020-01-02] MEDS: Cetirizine* 10 MG TAB PO SCH (07:30)
[2020-01-02 07:46] VITALS: BP 155/90
[2020-01-02] MEDS: Mometasone/Formoter 200/5 MDI INH SCH (07:50)
[2020-01-02] MEDS: SPIRIVA Respimat* (tiotropium) 2.5 mcg/inh Inhaler INH SCH (07:51)
--- NOTE | 2020-01-03 00:04 | DS ---
CC: Dr. Carmichael * DISCHARGE SUMMARY: DATE OF ADMISSION: 12/31/19 DATE OF DISCHARGE: 01/02/20 PROVIDER: RITA Rios ATTENDING PHYSICIAN WHILE IN THE HOSPITAL: Dr. Buffy Nolasco * (dictated by RITA Rios). PRIMARY CARE PROVIDER: Dr. Carmichael. PRIMARY DIAGNOSES: Acute on chronic hypoxemia, secondary to chronic obstructive pulmonary disease exacerbation, likely from continued tobacco use, as well as viral upper respiratory infection, and diabetes mellitus type 2. SECONDARY DIAGNOSES: 1. Tobacco use. 2. Chronic obstructive pulmonary disease, on 5 L of continuous oxygen at home. 3. Hypertension. 4. Obstructive sleep apnea, on continuous positive airway pressure with oxygen overnight. 5. History of pancreatic cancer, status post partial pancreatectomy. 6. Anxiety. 7. Depression. 8. History of alcohol use over 30 year ago. PERTINENT STUDIES WHILE IN THE HOSPITAL: Chest x-ray on 12/31/19: Hyperinflation. Patchy airspace disease of the right lung base. PERTINENT LAB DATA: Hemoglobin A1c 6.6. Influenza A and B negative. HISTORY OF PRESENT ILLNESS/HOSPITAL COURSE: Elisa Carpenter is a 59-year-old white female with past medical history significant for COPD, on 5 L of continuous oxygen therapy at home; hypertension; history of pancreatic cancer; BRITNEY, on CPAP; and anxiety, who presented to the emergency department on 12/31/19 , due to worsening of her progressive shortness of breath despite outpatient therapy for COPD exacerbation. The patient had started doxycycline and prednisone for COPD exacerbation, prescribed by her primary care provider's office 3 days prior to presentation, but was continuing to feel worse despite this. She was afebrile during her hospital stay. In the emergency department, she was having good oxygen saturations on her normal 5 L of oxygen, however, when ambulating, she reportedly dropped to 58% oxygen saturation despite the use of her baseline oxygen, and therefore was appropriate to admit her to the hospital. Her chest x-ray did read by the radiologist as patchy airspace lung disease, but this is not entirely convincing of pneumonia, however, she did receive 5 total days of doxycycline coverage, which I believe is suspicion. She was admitted to the hospital, started on high dose of oral prednisone. After that, she received scheduled DuoNeb and her home inhalers were continued as well. Additionally, she was some-what tachycardiac at presentation and she had been having diarrhea, which I suspect is likely due to her doxycycline use. She received fluids and this improved. Overall, by date of discharge, she was greatly improved. Her diffuse wheezing was greatly improved. She was able to ambulate on her baseline 5 L oxygen and maintaining oxygen saturations over 94% and now she is feeling symptomatically improved as well. She had no further complaints of chest pain or feelings of panic. I did check her hemoglobin A1c while she is in the hospital because she told me she had a history of prediabetes and her hemoglobin A1c is now diagnostic of diabetes mellitus type 2. She and I had a discussion about this and she is encouraged to start lifestyle changes, so that to decrease carbohydrate use and decline starting metformin at this time. She was evaluated by registered dietitian and given counseling regarding her new dietary plans. The patient has been complaining of what I believe to be likely viral URI symptoms and I did give her cetirizine and fluticasone nasal spray for relief of headache, which sounded to be related to sinus pressure and the combination of this as well as Tylenol did help her headaches during her hospital stay. Her diarrhea additionally resolved during this hospitalization. It is unclear whether the use of the probiotic contributed to this or was . PHYSICAL EXAM ON DAY OF DISCHARGE: General: Thin white female appears older than stated age, sitting on edge of bed, appearing comfortable, in no acute distress. Eyes: PERRL. Sclerae anicteric. ENT: Mucous membranes moist. Lungs: Diminished breath sounds throughout without adventitious . Cardio : Regular rate and rhythm without murmurs, rubs or gallops. Abdomen: Soft, nontender, nondistended. Extremities: No clubbing, cyanosis or edema. Neuro: The patient is alert and oriented x3. DISCHARGE PLAN: Diet: Low carbohydrate diet. Activity: The patient may return to normal daily activity as tolerated. The patient and I did discuss that she is interested in pulmonary rehab and has been suggested by her box toe cementer; however, the course is located in [place], which is discouraging to her. I did discuss this briefly with our box toe cementer , who frequently sent the patient to the physical therapist within the [facility]. Her name is Bethany Peter and she is a physical therapist, who specializes in working with geriatrics as well as pulmonary rehab per Dr. Szymanski's recommendation. I believe this could be a great benefit to the patient if she is still discouraged to travelling to [place] for pulmonary rehab. She is advised to follow up with her primary care provider within 1 week regarding this hospitalization. She is advised to continue the prednisone and I will taper it considering that initially at lower doses. She was not improving. Additionally, during her hospitalization, we discussed a complete smoking cessation and she was interested in the nicotine patch, which has been prescribed and should be followed up. I hope that the patient does conduct some lifestyle changes and hemoglobin A1c should be rechecked in 3 months. DISCHARGE MEDICATIONS: New Medications: 1. Cetirizine 10 mg p.o. daily. 2. Fluticasone nasal spray 2 sprays both nares daily p.r.n. nasal congestion. 3. Nicotine patch 10 mg per 24 hours 1 patch transdermally daily. 4. Prednisone 50 mg x2 days, then 40 mg x2 days, then 30 mg x2 days, then 20 mg x2 days, and 10 mg x2 days, and then discontinue. Continued home medications: 1. Diltiazem 30 mg p.o. b.i.d. 2. Albuterol 1 or 2 puffs inhaled q.4 hours p.r.n. shortness of breath/ wheezing. 3. Spiriva 1 cap inhaled daily. 4. Fluticasone/formoterol inhaler 250/50 mcg 1 puff inhaled b.i.d. CONDITION ON DISCHARGE: Stable. DISPOSITION: To home. TIME SPENT: Approximately 35 minutes was spent on this discharge, approximately half the time was spent at bedside evaluating the patient and discussing the plan of care. RITA RIOS [id number]/[facility] #: [id number] KENIS[place]
== END 2020-01-02 12:30 | disposition home or self-care (01) | DRG 140 ==
LOC: ED 13:21 → MED 19:24
PROVIDERS: ADMIT Internal Medicine; ATTEND Internal Medicine
DX: J44.1 Chronic obstructive pulmonary disease with (acute) exacerbation (principal); J96.21 Acute and chronic respiratory failure with hypoxia; E11.9 Type 2 diabetes mellitus without complications; R51 Headache; I10 Essential (primary) hypertension; G47.33 Obstructive sleep apnea (adult) (pediatric); F41.9 Anxiety disorder, unspecified; R00.0 Tachycardia, unspecified; E86.0 Dehydration; M19.90 Unspecified osteoarthritis, unspecified site; F32.9 Major depressive disorder, single episode, unspecified; F17.210 Nicotine dependence, cigarettes, uncomplicated; R19.7 Diarrhea, unspecified; J06.9 Acute upper respiratory infection, unspecified; Z79.899 Other long term (current) drug therapy; Z99.81 Dependence on supplemental oxygen; Z85.07 Personal history of malignant neoplasm of pancreas; Z88.1 Allergy status to other antibiotic agents; Z88.5 Allergy status to narcotic agent; Z88.8 Allergy status to other drugs, medicaments and biological substances; Z90.711 Acquired absence of uterus with remaining cervical stump; Z90.411 Acquired partial absence of pancreas; Z90.81 Acquired absence of spleen; Z79.51 Long term (current) use of inhaled steroids
CPT/HCPCS: 36415; 71045; 80048; 80053; 81003; 81015; 83036; 83605; 84484; 85025; 85610; 85730; 87040; 87086; 93005; 94640; 96374; 99284; A9270-GY; J0696; J1100; J1650; J2405; J3535; J7512

== ENCOUNTER 2021-07-02 12:33 | Inpatient (IN) ==
[2021-07-02] MEDS ORDERED: methylPREDNISolone 125 mg 2 ML VIAL IV ONE (12:59)
[2021-07-02] MEDS ORDERED: Albuterol HFA INHALER 8 gm MDI INH ONE (12:59)
[2021-07-02 14:27] LABS: ABS Basophils 0.1 10^3/ul (0-0.2); ABS Eosinophils 0.2 10^3/ul (0-0.6); ABS Lymphocytes 2.1 10^3/ul (1.0-4.8); ABS Monocytes 1.1 10^3/ul (0-0.8); ABS Neutrophils 8.5 10^3/ul (1.5-7.7); Eosinophil % 1.4 %; Hematocrit 46 % (35-47); Hemoglobin 14.8 g/dL (12.0-16.0); Lymphocyte % 17.8 %; Mean Corpuscular HGB Conc 32 g/dL (31-36); Mean Corpuscular Hemoglobin 30 pg (27-31); Mean Corpuscular Volume 93 fL (80-97); Mean Platelet Volume 11.3 fL (7.4-10.4); Platelet Count 266 10^3/uL (150-450); Red Blood Count 4.95 10^6 /uL (3.70-4.87); Red Cell Distribution Width 14 % (10-15)
[2021-07-02 14:42] LABS: Albumin 4.4 g/dL (3.2-5.2); Albumin/Globulin Ratio 1.5 (1-3); Calcium 9.7 mg/dL (8.6-10.3); EGFR African American 106.4 (>60); Globulin 2.9 g/dL (2-4); Potassium 4.3 mmol/L (3.5-5.0); Total Bilirubin 0.3 mg/dL (0.2-1.0); Total Protein 7.3 g/dL (6.4-8.9)
[2021-07-02] MEDS ORDERED: Albuterol/Ipratropium NEB.SOL (2.5/0.5 MG) 3 ML NEB.SOLN INH ONE (17:24)
[2021-07-02] MEDS ORDERED: Albuterol HFA INHALER 8 gm MDI INH PRN (19:24)
[2021-07-02] MEDS: Enoxaparin 40 MG/0.4 ML SYR SUBCUT SCH (21:57)
[2021-07-02] MEDS: Albuterol/Ipratropium NEB.SOL (2.5/0.5 MG) 3 ML NEB.SOLN INH SCH (22:18)
[2021-07-03] MEDS: cefTRIAXone 1 gm/50 mL NS BAG 1 GM/50 ML BAG IVPB SCH (02:19)
[2021-07-03] MEDS: Albuterol/Ipratropium NEB.SOL (2.5/0.5 MG) 3 ML NEB.SOLN INH SCH ×4 (04:38→13:04)
[2021-07-03 05:01] LABS: ABS Lymphocytes 1.1 10^3/ul (1.0-4.8); ABS Monocytes 0.4 10^3/ul (0-0.8); ABS Neutrophils 8.7 10^3/ul (1.5-7.7); Eosinophil % 0.1 %; Hematocrit 42 % (35-47); Hemoglobin 13.8 g/dL (12.0-16.0); Lymphocyte % 10.9 %; Mean Corpuscular HGB Conc 33 g/dL (31-36); Mean Corpuscular Hemoglobin 30 pg (27-31); Mean Corpuscular Volume 92 fL (80-97); Mean Platelet Volume 11.4 fL (7.4-10.4); Platelet Count 227 10^3/uL (150-450); Red Cell Distribution Width 14 % (10-15); White Blood Count 10.2 10^3/uL (3.5-10.8)
[2021-07-03] MEDS ORDERED: Albuterol HFA INHALER 8 gm MDI INH SCH (08:00)
[2021-07-03] MEDS: Azithromycin 500 mg/250 ml NS 500 MG/250 ML BAG IVPB SCH (08:52)
[2021-07-03] MEDS ORDERED: Mometasone/Formoter 100/5 MDI INH SCH (09:00)
[2021-07-03] MEDS ORDERED: SPIRIVA Respimat (tiotropium) 2.5 mcg/inh Inhaler INH SCH (09:00)
[2021-07-03] MEDS ORDERED: Albuterol 2.5mg/3 ml (0.083%) NEB.SOLN INH PRN (10:54)
[2021-07-03] MEDS: FLUTICASONE/UMECLIDIN/VILANTER 1 PUFF MDI INH SCH (13:19)
[2021-07-03] MEDS: Albuterol HFA INHALER 8 gm MDI INH PRN (18:17)
[2021-07-03] MEDS: Enoxaparin 40 MG/0.4 ML SYR SUBCUT SCH (19:20)
[2021-07-04] MEDS: cefTRIAXone 1 gm/50 mL NS BAG 1 GM/50 ML BAG IVPB SCH (01:41)
[2021-07-04 07:55] LABS: Hematocrit 42 % (35-47); Hemoglobin 13.7 g/dL (12.0-16.0); Mean Corpuscular HGB Conc 33 g/dL (31-36); Mean Corpuscular Hemoglobin 30 pg (27-31); Mean Corpuscular Volume 91 fL (80-97); Mean Platelet Volume 11.7 fL (7.4-10.4); Platelet Count 283 10^3/uL (150-450); Red Blood Count 4.61 10^6 /uL (3.70-4.87); Red Cell Distribution Width 14 % (10-15); White Blood Count 13.5 10^3/uL (3.5-10.8)
[2021-07-04 08:11] LABS: Calcium 9.4 mg/dL (8.6-10.3); EGFR African American 104.7 (>60); EGFR Non-African American 86.5 (>60); Potassium 4.3 mmol/L (3.5-5.0)
[2021-07-04] MEDS: Azithromycin 500 mg/250 ml NS 500 MG/250 ML BAG IVPB SCH (08:58)
[2021-07-04] MEDS: FLUTICASONE/UMECLIDIN/VILANTER 1 PUFF MDI INH SCH (09:39)
[2021-07-04] MEDS ORDERED: Lactated Ringers 1000 ml BAG 1,000 ML IV ONE (12:51)
[2021-07-04] MEDS: Albuterol HFA INHALER 8 gm MDI INH PRN (13:25)
[2021-07-04] MEDS: Enoxaparin 40 MG/0.4 ML SYR SUBCUT SCH (20:38)
[2021-07-05] MEDS: FLUTICASONE/UMECLIDIN/VILANTER 1 PUFF MDI INH SCH (07:16)
[2021-07-05 12:24] VITALS: BP 173/91
== END 2021-07-05 16:10 | disposition home or self-care (01) | DRG 177 ==
LOC: ED 12:33 → SUATTDRO 19:16 → MED 19:16
PROVIDERS: ADMIT Student in an Organized Health Care Education/Training Program; ATTEND Internal Medicine

== ENCOUNTER 2022-01-13 15:22 | Inpatient (IN) ==
[2022-01-13 16:20] LABS: ABS Basophils 0.1 10^3/ul (0-0.2); ABS Eosinophils 0.2 10^3/ul (0-0.6); ABS Lymphocytes 1.3 10^3/ul (1.0-4.8); ABS Monocytes 0.8 10^3/ul (0-0.8); ABS Neutrophils 5.4 10^3/ul (1.5-7.7); Eosinophil % 2.1 %; Hematocrit 39 % (35-47); Hemoglobin 12.2 g/dL (12.0-16.0); Lymphocyte % 16.3 %; Mean Corpuscular HGB Conc 32 g/dL (31-36); Mean Corpuscular Hemoglobin 29 pg (27-31); Mean Corpuscular Volume 91 fL (80-97); Mean Platelet Volume 12.3 fL (7.4-10.4); Nucleated Red Blood Cells % 0.1; Platelet Count 156 10^3/uL (150-450); Red Blood Count 4.23 10^6 /uL (3.70-4.87); Red Cell Distribution Width 15 % (10-15); White Blood Count 7.7 10^3/uL (3.5-10.8)
[2022-01-13 16:30] LABS: INR 0.96 (0.86-1.15)
[2022-01-13 17:07] LABS: Albumin 3.8 g/dL (3.2-5.2); Albumin/Globulin Ratio 1.9 (1-3); C Reactive Protein 2.03 mg/L (<8.01); Calcium 9.4 mg/dL (8.6-10.3); Potassium 4.4 mmol/L (3.5-5.0); Total Bilirubin 0.3 mg/dL (0.2-1.0); Total Protein 5.8 g/dL (6.4-8.9); eGFR CKD-EPI 106.6 (>60)
[2022-01-13] MEDS ORDERED: methylPREDNISolone 125 mg 2 ML VIAL IV ONE (17:46)
[2022-01-13] MEDS ORDERED: Albuterol/Ipratropium NEB.SOL (2.5/0.5 MG) 3 ML NEB.SOLN INH ONE (17:47)
[2022-01-13 17:55] LABS: High Sensitivity Troponin 1 Hr 8 pg/mL (<15)
[2022-01-13] MEDS ORDERED: Albuterol HFA INHALER 8 gm MDI INH ONE (18:45)
[2022-01-13 19:21] LABS: PO2 Arterial 66 mmHg (80-100)
[2022-01-13 19:30] LABS: PCO2 Arterial 111 mmHg (35-45)
[2022-01-13] MEDS ORDERED: Albuterol HFA INHALER 8 gm MDI INH PRN (21:24)
[2022-01-13] MEDS ORDERED: Albuterol 2.5mg/3 ml (0.083%) NEB.SOLN INH PRN (21:24)
[2022-01-13 23:16] LABS: PO2 Arterial 74 mmHg (80-100)
[2022-01-13 23:22] LABS: Urine Appearance Cloudy; Urine Bilirubin Negative (Negative); Urine Blood Negative (Negative); Urine Color Yellow; Urine Glucose Negative (Negative); Urine Ketones Trace (Negative); Urine Nitrite Negative (Negative); Urine Protein 1+(30 mg/dL) (Negative); Urine Specific Gravity 1.019 (1.002-1.030); Urine Urobilinogen Negative (Negative)
[2022-01-13 23:24] LABS: Urine Bacteria Absent (Absent); Urine Red Blood Cell 1+(3-5/hpf) (Absent); Urine Squamous Epithelial Cell Present (Absent); Urine White Blood Cell Trace(0-5/hpf) (Absent)
[2022-01-13 23:26] LABS: PCO2 Arterial 94 mmHg (35-45)
[2022-01-14] MEDS: methylPREDNISolone SOD 40 mg/ml 1 ml VIAL IV SCH ×3 (04:22→17:20)
[2022-01-14 05:11] LABS: PO2 Arterial 70 mmHg (80-100)
[2022-01-14 05:15] LABS: PCO2 Arterial 94 mmHg (35-45)
[2022-01-14 06:11] LABS: ABS Lymphocytes 0.6 10^3/ul (1.0-4.8); ABS Monocytes 0.2 10^3/ul (0-0.8); ABS Neutrophils 4.4 10^3/ul (1.5-7.7); Hematocrit 38 % (35-47); Hemoglobin 11.9 g/dL (12.0-16.0); Lymphocyte % 12.3 %; Mean Corpuscular HGB Conc 32 g/dL (31-36); Mean Corpuscular Hemoglobin 29 pg (27-31); Mean Corpuscular Volume 92 fL (80-97); Mean Platelet Volume 11.2 fL (7.4-10.4); Platelet Count 137 10^3/uL (150-450); Red Blood Count 4.09 10^6 /uL (3.70-4.87); Red Cell Distribution Width 15 % (10-15); White Blood Count 5.2 10^3/uL (3.5-10.8)
[2022-01-14 06:42] LABS: ALT 19 U/L (7-52); Albumin 3.7 g/dL (3.2-5.2); Albumin/Globulin Ratio 1.9 (1-3); Alkaline Phosphatase 46 U/L (35-149); Blood Urea Nitrogen 21 mg/dL (6-24); Calcium 9.3 mg/dL (8.6-10.3); Chloride 96 mmol/L (101-111); Glucose 131 mg/dL (70-100); Sodium 142 mmol/L (135-145); Total Protein 5.7 g/dL (6.4-8.9); eGFR CKD-EPI 107.7 (>60)
[2022-01-14 07:06] LABS: Anion Gap 2 mmol/L (2-11); CO2 Carbon Dioxide 44 mmol/L (22-32)
[2022-01-14] MEDS: FLUTICAS/UMECLI/VILANT 100-62.5-25 MDI (NF) INH SCH (07:44)
[2022-01-14] MEDS ORDERED: VARENICLINE 0.5 MG TAB(NF) PO SCH (09:00)
[2022-01-14] MEDS: Enoxaparin 40 MG/0.4 ML SYR SUBCUT SCH ×2 (09:01→09:07)
[2022-01-14 10:15] LABS: Direct Bilirubin Redraw 0.1 mg/dL (0.03-0.18); Potassium Redraw 4.7 mmol/L (3.5-5.0)
[2022-01-14] MEDS: cefTRIAXone 1 gm/50 mL NS BAG 1 GM/50 ML BAG IVPB SCH (11:25)
[2022-01-14] MEDS: DOXYcycline 100 MG in NS 0.9% 250 ml 250 ML IVPB SCH ×2 (12:12→23:21)
[2022-01-15] MEDS: methylPREDNISolone SOD 40 mg/ml 1 ml VIAL IV SCH ×2 (02:02→09:20)
[2022-01-15 04:57] LABS: Hematocrit 42 % (35-47); Hemoglobin 13.1 g/dL (12.0-16.0); Mean Corpuscular HGB Conc 31 g/dL (31-36); Mean Corpuscular Hemoglobin 29 pg (27-31); Mean Corpuscular Volume 92 fL (80-97); Mean Platelet Volume 11.2 fL (7.4-10.4); Platelet Count 134 10^3/uL (150-450); Red Blood Count 4.53 10^6 /uL (3.70-4.87); Red Cell Distribution Width 15 % (10-15)
[2022-01-15 04:58] LABS: ABS Lymphocytes 0.8 10^3/ul (1.0-4.8); ABS Monocytes 0.4 10^3/ul (0-0.8); ABS Neutrophils 5.9 10^3/ul (1.5-7.7); Lymphocyte % 11.1 %
[2022-01-15 05:21] LABS: Calcium 9.6 mg/dL (8.6-10.3); eGFR CKD-EPI 102.9 (>60)
[2022-01-15] MEDS: FLUTICAS/UMECLI/VILANT 100-62.5-25 MDI (NF) INH SCH (07:36)
[2022-01-15] MEDS: Enoxaparin 40 MG/0.4 ML SYR SUBCUT SCH (07:43)
[2022-01-15] MEDS: Heparin 5000 UNITS/ML 1 mL VIAL SUBCUT SCH ×2 (09:20→20:23)
[2022-01-15 11:24] LABS: PO2 Arterial 78 mmHg (80-100)
[2022-01-15 11:32] LABS: PCO2 Arterial 90 mmHg (35-45)
[2022-01-15] MEDS: cefTRIAXone 1 gm/50 mL NS BAG 1 GM/50 ML BAG IVPB SCH (11:58)
[2022-01-15] MEDS: DOXYcycline 100 MG in NS 0.9% 250 ml 250 ML IVPB SCH (12:24)
[2022-01-15] MEDS ORDERED: methylPREDNISolone SOD 40 mg/ml 1 ml VIAL IV SCH (21:00)
[2022-01-16] MEDS: DOXYcycline 100 MG in NS 0.9% 250 ml 250 ML IVPB SCH ×2 (00:04→12:57)
[2022-01-16 06:10] LABS: ABS Lymphocytes 0.5 10^3/ul (1.0-4.8); ABS Monocytes 0.4 10^3/ul (0-0.8); ABS Neutrophils 5.2 10^3/ul (1.5-7.7); Hematocrit 36 % (35-47); Hemoglobin 11.5 g/dL (12.0-16.0); Lymphocyte % 8.6 %; Mean Corpuscular HGB Conc 32 g/dL (31-36); Mean Corpuscular Hemoglobin 29 pg (27-31); Mean Corpuscular Volume 90 fL (80-97); Mean Platelet Volume 11.6 fL (7.4-10.4); Nucleated Red Blood Cells % 0.1; Platelet Count 137 10^3/uL (150-450); Red Blood Count 4.02 10^6 /uL (3.70-4.87); Red Cell Distribution Width 15 % (10-15); White Blood Count 6.1 10^3/uL (3.5-10.8)
[2022-01-16 06:28] LABS: Calcium 8.8 mg/dL (8.6-10.3); Potassium 4.3 mmol/L (3.5-5.0); eGFR CKD-EPI 106.1 (>60)
[2022-01-16] MEDS: FLUTICAS/UMECLI/VILANT 100-62.5-25 MDI (NF) INH SCH (07:52)
[2022-01-16] MEDS: Heparin 5000 UNITS/ML 1 mL VIAL SUBCUT SCH ×2 (09:25→19:16)
[2022-01-16] MEDS: cefTRIAXone 1 gm/50 mL NS BAG 1 GM/50 ML BAG IVPB SCH (11:54)
[2022-01-17 06:01] LABS: Hematocrit 40 % (35-47); Hemoglobin 12.8 g/dL (12.0-16.0); Mean Corpuscular HGB Conc 32 g/dL (31-36); Mean Corpuscular Hemoglobin 29 pg (27-31); Mean Corpuscular Volume 91 fL (80-97); Mean Platelet Volume 12.4 fL (7.4-10.4); Platelet Count 138 10^3/uL (150-450); Red Blood Count 4.41 10^6 /uL (3.70-4.87); Red Cell Distribution Width 15 % (10-15); White Blood Count 5.4 10^3/uL (3.5-10.8)
[2022-01-17 06:08] LABS: ABS Lymphocytes 1.2 10^3/ul (1.0-4.8); ABS Monocytes 0.7 10^3/ul (0-0.8); ABS Neutrophils 3.5 10^3/ul (1.5-7.7); Eosinophil % 0.2 %; Lymphocyte % 22.4 %; Nucleated Red Blood Cells % 0.1
[2022-01-17 06:30] LABS: Blood Urea Nitrogen 17 mg/dL (6-24); Calcium 8.7 mg/dL (8.6-10.3); Chloride 98 mmol/L (101-111); Glucose 103 mg/dL (70-100); Sodium 142 mmol/L (135-145); eGFR CKD-EPI 108.8 (>60)
[2022-01-17 06:36] LABS: Anion Gap 2 mmol/L (2-11); CO2 Carbon Dioxide 42 mmol/L (22-32)
[2022-01-17] MEDS: Heparin 5000 UNITS/ML 1 mL VIAL SUBCUT SCH ×2 (08:17→22:17)
[2022-01-17] MEDS: FLUTICAS/UMECLI/VILANT 100-62.5-25 MDI (NF) INH SCH (08:17)
[2022-01-17] MEDS ORDERED: Albuterol/Ipratropium NEB.SOL (2.5/0.5 MG) 3 ML NEB.SOLN INH PRN (08:39)
[2022-01-17] MEDS ORDERED: VARENICLINE 0.5 MG TAB(NF) PO SCH (09:00)
[2022-01-18 07:12] LABS: Blood Urea Nitrogen 17 mg/dL (6-24); Calcium 8.8 mg/dL (8.6-10.3); Chloride 98 mmol/L (101-111); Glucose 91 mg/dL (70-100); Potassium 4.3 mmol/L (3.5-5.0); Sodium 143 mmol/L (135-145); eGFR CKD-EPI 103.3 (>60)
[2022-01-18 07:24] LABS: CO2 Carbon Dioxide 45 mmol/L (22-32)
[2022-01-18] MEDS: FLUTICAS/UMECLI/VILANT 100-62.5-25 MDI (NF) INH SCH (08:14)
[2022-01-18] MEDS: Heparin 5000 UNITS/ML 1 mL VIAL SUBCUT SCH ×2 (09:06→20:05)
[2022-01-18] MEDS ORDERED: Enoxaparin 40 MG/0.4 ML SYR SUBCUT SCH (15:00)
[2022-01-18 17:15] LABS: INR 0.9 (0.86-1.15)
[2022-01-18 17:16] LABS: ABS Lymphocytes 0.4 10^3/ul (1.0-4.8); ABS Monocytes 0.2 10^3/ul (0-0.8); ABS Neutrophils 5.6 10^3/ul (1.5-7.7); Eosinophil % 0.1 %; Hematocrit 40 % (35-47); Hemoglobin 12.6 g/dL (12.0-16.0); Lymphocyte % 6.4 %; Mean Corpuscular HGB Conc 32 g/dL (31-36); Mean Corpuscular Hemoglobin 29 pg (27-31); Mean Corpuscular Volume 91 fL (80-97); Mean Platelet Volume 12.3 fL (7.4-10.4); Platelet Count 148 10^3/uL (150-450); Red Blood Count 4.35 10^6 /uL (3.70-4.87); Red Cell Distribution Width 15 % (10-15); White Blood Count 6.2 10^3/uL (3.5-10.8)
[2022-01-18 17:35] LABS: eGFR CKD-EPI 102.5 (>60)
[2022-01-18 19:02] LABS: Large Platelets Present
[2022-01-19] MEDS: FLUTICAS/UMECLI/VILANT 100-62.5-25 MDI (NF) INH SCH (07:52)
[2022-01-19] MEDS: Heparin 5000 UNITS/ML 1 mL VIAL SUBCUT SCH ×2 (09:09→22:01)
[2022-01-20] MEDS: FLUTICAS/UMECLI/VILANT 100-62.5-25 MDI (NF) INH SCH (07:54)
[2022-01-20] MEDS: Heparin 5000 UNITS/ML 1 mL VIAL SUBCUT SCH ×2 (09:33→22:24)
[2022-01-21 05:07] LABS: Hematocrit 39 % (35-47); Hemoglobin 12.4 g/dL (12.0-16.0); Mean Corpuscular HGB Conc 32 g/dL (31-36); Mean Corpuscular Hemoglobin 29 pg (27-31); Mean Corpuscular Volume 90 fL (80-97); Mean Platelet Volume 12.1 fL (7.4-10.4); Platelet Count 149 10^3/uL (150-450); Red Blood Count 4.35 10^6 /uL (3.70-4.87); Red Cell Distribution Width 15 % (10-15); White Blood Count 13.5 10^3/uL (3.5-10.8)
[2022-01-21 05:13] LABS: ABS Basophils 0.1 10^3/ul (0-0.2); ABS Eosinophils 0.1 10^3/ul (0-0.6); ABS Lymphocytes 1.9 10^3/ul (1.0-4.8); ABS Monocytes 0.9 10^3/ul (0-0.8); ABS Neutrophils 10.3 10^3/ul (1.5-7.7); Eosinophil % 0.9 %; Lymphocyte % 14.4 %
[2022-01-21] MEDS: FLUTICAS/UMECLI/VILANT 100-62.5-25 MDI (NF) INH SCH (10:01)
[2022-01-21] MEDS: Heparin 5000 UNITS/ML 1 mL VIAL SUBCUT SCH ×2 (10:22→20:48)
[2022-01-22] MEDS: FLUTICAS/UMECLI/VILANT 100-62.5-25 MDI (NF) INH SCH (08:18)
[2022-01-22] MEDS: Heparin 5000 UNITS/ML 1 mL VIAL SUBCUT SCH ×2 (10:32→20:53)
[2022-01-23] MEDS: FLUTICAS/UMECLI/VILANT 100-62.5-25 MDI (NF) INH SCH (07:22)
[2022-01-23] MEDS: Heparin 5000 UNITS/ML 1 mL VIAL SUBCUT SCH ×2 (08:51→20:46)
[2022-01-24] MEDS: FLUTICAS/UMECLI/VILANT 100-62.5-25 MDI (NF) INH SCH (08:40)
[2022-01-24] MEDS: Heparin 5000 UNITS/ML 1 mL VIAL SUBCUT SCH (09:54)
[2022-01-24 12:07] VITALS: BP 131/73
== END 2022-01-24 13:50 | disposition home health service (06) | DRG 189 ==
LOC: ED 15:22 → SUATTDRO 20:24 → EDHOLD 20:24 → ICU 01-14 00:58 → MED 01-15 13:48
PROVIDERS: ADMIT Internal Medicine; ATTEND Internal Medicine

== ENCOUNTER 2023-01-18 13:07 | Observation (INO) ==
[2023-01-18 13:50] LABS: ABS Basophils 0.1 10^3/ul (0-0.2); ABS Eosinophils 0.2 10^3/ul (0-0.6); ABS Lymphocytes 1.5 10^3/ul (1.0-4.8); ABS Monocytes 0.7 10^3/ul (0-0.8); Eosinophil % 1.9 %; Hematocrit 46 % (35-47); Hemoglobin 14.8 g/dL (12.0-16.0); Lymphocyte % 17.6 %; Mean Corpuscular HGB Conc 32 g/dL (31-36); Mean Corpuscular Hemoglobin 29 pg (27-31); Mean Corpuscular Volume 90 fL (80-97); Mean Platelet Volume 11.1 fL (7.4-10.4); Nucleated Red Blood Cells % 0.1; Platelet Count 250 10^3/uL (150-450); Red Blood Count 5.12 10^6 /uL (3.70-4.87); Red Cell Distribution Width 14 % (10-15); White Blood Count 8.4 10^3/uL (3.5-10.8)
[2023-01-18 14:02] LABS: INR 0.97 (0.88-1.18)
[2023-01-18 14:46] LABS: Albumin 4.2 g/dL (3.2-5.2); Albumin/Globulin Ratio 1.7 (1-3); Calcium 9.5 mg/dL (8.6-10.3); Creatinine, Serum 0.57 mg/dL (0.51-0.95); Globulin 2.5 g/dL (2-4); Potassium 4.4 mmol/L (3.5-5.0); Total Bilirubin 0.3 mg/dL (0.2-1.0); Total Protein 6.7 g/dL (6.4-8.9); eGFR CKD-EPI 102.7 (>60)
[2023-01-18 15:25] LABS: High Sensitivity Troponin 1 Hr 5 pg/mL (<15)
[2023-01-18] MEDS ORDERED: Enoxaparin 40 MG/0.4 ML SYR SUBCUT SCH (21:00)
[2023-01-19] MEDS: Heparin 5000 UNITS/ML 1 mL VIAL SUBCUT SCH ×4 (00:32→20:04)
[2023-01-19 03:35] LABS: ABS Basophils 0.1 10^3/ul (0-0.2); ABS Eosinophils 0.3 10^3/ul (0-0.6); ABS Lymphocytes 2.4 10^3/ul (1.0-4.8); ABS Monocytes 0.7 10^3/ul (0-0.8); ABS Neutrophils 5.7 10^3/ul (1.5-7.7); Eosinophil % 2.8 %; Hematocrit 40 % (35-47); Hemoglobin 12.6 g/dL (12.0-16.0); Lymphocyte % 26.1 %; Mean Corpuscular HGB Conc 32 g/dL (31-36); Mean Corpuscular Hemoglobin 29 pg (27-31); Mean Corpuscular Volume 90 fL (80-97); Mean Platelet Volume 11.1 fL (7.4-10.4); Nucleated Red Blood Cells % 0.1; Platelet Count 217 10^3/uL (150-450); Red Blood Count 4.43 10^6 /uL (3.70-4.87); Red Cell Distribution Width 15 % (10-15); White Blood Count 9.1 10^3/uL (3.5-10.8)
[2023-01-19 04:19] LABS: C Reactive Protein 3.02 mg/L (<8.01); Creatinine, Serum 0.74 mg/dL (0.51-0.95); Potassium 3.7 mmol/L (3.5-5.0); eGFR CKD-EPI 91.4 (>60)
[2023-01-19] MEDS: CMCS: FLUTICAS/UMECLI/VILANT 100-62.5-25 MDI (NF) INH SCH (07:35)
[2023-01-19] MEDS ORDERED: Potassium Chlor 20 meq TAB.ER PO ONE (08:47)
[2023-01-19 10:53] LABS: TSH Ultra Thyroid Stim Horm 1.21 mcIU/mL (0.34-5.60)
[2023-01-20] MEDS: Heparin 5000 UNITS/ML 1 mL VIAL SUBCUT SCH ×3 (06:12→22:27)
[2023-01-20 07:14] LABS: ABS Eosinophils 0.2 10^3/ul (0-0.6); ABS Monocytes 0.8 10^3/ul (0-0.8); ABS Neutrophils 3.5 10^3/ul (1.5-7.7); Eosinophil % 3.8 %; Hematocrit 39 % (35-47); Lymphocyte % 30.4 %; Mean Corpuscular HGB Conc 33 g/dL (31-36); Mean Corpuscular Hemoglobin 30 pg (27-31); Mean Corpuscular Volume 90 fL (80-97); Mean Platelet Volume 11.8 fL (7.4-10.4); Platelet Count 222 10^3/uL (150-450); Red Blood Count 4.37 10^6 /uL (3.70-4.87); Red Cell Distribution Width 14 % (10-15); White Blood Count 6.5 10^3/uL (3.5-10.8)
[2023-01-20 07:26] LABS: Creatinine, Serum 0.54 mg/dL (0.51-0.95); Potassium 3.8 mmol/L (3.5-5.0); eGFR CKD-EPI 103.4 (>60)
[2023-01-20] MEDS: CMCS: FLUTICAS/UMECLI/VILANT 100-62.5-25 MDI (NF) INH SCH (08:04)
[2023-01-20] MEDS ORDERED: Potassium Chlor 20 meq TAB.ER PO ONE (08:08)
[2023-01-21] MEDS: Heparin 5000 UNITS/ML 1 mL VIAL SUBCUT SCH (05:25)
[2023-01-21 06:00] LABS: ABS Basophils 0.1 10^3/ul (0-0.2); ABS Eosinophils 0.3 10^3/ul (0-0.6); ABS Lymphocytes 2.5 10^3/ul (1.0-4.8); ABS Monocytes 0.9 10^3/ul (0-0.8); ABS Neutrophils 3.6 10^3/ul (1.5-7.7); Eosinophil % 4.2 %; Hematocrit 41 % (35-47); Hemoglobin 12.8 g/dL (12.0-16.0); Lymphocyte % 34.3 %; Mean Corpuscular HGB Conc 32 g/dL (31-36); Mean Corpuscular Hemoglobin 28 pg (27-31); Mean Corpuscular Volume 90 fL (80-97); Mean Platelet Volume 11.2 fL (7.4-10.4); Nucleated Red Blood Cells % 0.1; Platelet Count 223 10^3/uL (150-450); Red Blood Count 4.52 10^6 /uL (3.70-4.87); Red Cell Distribution Width 14 % (10-15); White Blood Count 7.4 10^3/uL (3.5-10.8)
[2023-01-21 06:14] LABS: Calcium 9.1 mg/dL (8.6-10.3); Creatinine, Serum 0.64 mg/dL (0.51-0.95); Potassium 4.2 mmol/L (3.5-5.0); eGFR CKD-EPI 99.2 (>60)
[2023-01-21] MEDS: CMCS: FLUTICAS/UMECLI/VILANT 100-62.5-25 MDI (NF) INH SCH (07:53)
[2023-01-21] MEDS ORDERED: Regadenoson 0.4 MG/5 ML SYRINGE ONE (08:21)
[2023-01-21] MEDS ORDERED: Aminophylline 25 MG/ML VIAL ONE (08:22)
[2023-01-21] MEDS ORDERED: Atropine 0.1 MG/ML 10 ml SYR (1 mg) ONE (08:42)
[2023-01-21 10:05] VITALS: BP 140/93
[2023-01-21 11:27] LABS: HDL Cholesterol 68.3 mg/dL
== END 2023-01-21 11:50 | disposition home or self-care (01) ==
LOC: EDHOLD 13:07 → ED 13:07 → SUATTDRO 20:36 → MEDTELE 01-19 02:07
PROVIDERS: ADMIT Internal Medicine; ATTEND Hospitalist

== ENCOUNTER 2023-06-26 16:31 | Observation (INO) ==
[2023-06-26 17:21] LABS: ABS Basophils 0.1 10^3/uL (0.0-0.1); ABS Eosinophils 0.3 10^3/uL (0.0-0.5); ABS Lymphocytes 2.2 10^3/uL (1.0-4.8); ABS Neutrophils 6.7 10^3/uL (1.5-7.6); Eosinophil % 3.4 %; Hematocrit 42.5 % (35-45); Lymphocyte % 21.4 %; Mean Corpuscular Hemoglobin 29.6 pg (27-33); Mean Corpuscular Volume 89.8 fL (80-97); Mean Platelet Volume 11.2 fL (7.5-11.2); Platelet Count 276 10^3/uL (150-450); Red Blood Count 4.73 10^6/uL (3.63-4.92); Red Cell Distribution Width 13.8 % (12-17); White Blood Count 10.3 10^3/uL (3.8-11.8)
[2023-06-26 17:37] LABS: ALT 18 U/L (7-52); Albumin 3.2 g/dL (3.2-5.2); Albumin/Globulin Ratio 1.6 (1-3); Alkaline Phosphatase 55 U/L (35-149); Blood Urea Nitrogen 17 mg/dL (6-24); CO2 Carbon Dioxide 26 mmol/L (22-32); Calcium 7.2 mg/dL (8.6-10.3); Chloride 113 mmol/L (101-111); Glucose 97 mg/dL (70-100); Sodium 143 mmol/L (135-145); Total Protein 5.2 g/dL (6.4-8.9); eGFR CKD-EPI 105.3 (>60)
[2023-06-26 17:39] LABS: Anion Gap 4 mmol/L (2-16)
[2023-06-26 17:44] LABS: High Sens Troponin Baseline 5 pg/mL (<15)
[2023-06-26 19:56] LABS: Magnesium 2.1 mg/dL (1.9-2.7); Potassium Redraw 3.9 mmol/L (3.5-5.0)
[2023-06-26 20:04] LABS: High Sensitivity Troponin 1 Hr 7 pg/mL (<15)
[2023-06-26] MEDS ORDERED: Albuterol HFA INHALER 8 gm MDI INH PRN (23:23)
[2023-06-26] MEDS ORDERED: Enoxaparin 40 MG/0.4 ML SYR SUBCUT SCH (23:45)
[2023-06-27 01:51] LABS: Venous Bicarbonate HCO3 31.3 mmol/L (24-28)
[2023-06-27] MEDS ORDERED: CMCS: FLUTICAS/UMECLI/VILANT 100-62.5-25 MDI (NF) INH SCH (09:00)
[2023-06-27 14:10] VITALS: BP 126/84
== END 2023-06-27 14:10 | disposition home or self-care (01) ==
LOC: ED 16:31 → EDHOLD 16:31 → SUATTDRO 22:06 → EDHOLD 06-27 09:02
PROVIDERS: ADMIT Internal Medicine; ATTEND Internal Medicine